=== PATIENT | female | born 1955 | race Caucasian/White ===

== ENCOUNTER → 2017-07-29 09:27 | Outpatient (CLI) | payer OTHER, SELFPAY | PROVIDERS: PCP Nurse Practitioner Acute Care; Visit Provider Internal Medicine | DX: Z48.817 Encounter for surgical aftercare following surgery on the skin and subcutaneous tissue (principal) | CPT/HCPCS: 99213 ==

== ENCOUNTER → 2018-03-22 13:11 | Outpatient (CLI) | payer OTHER, SELFPAY ==
[2018-03-22 13:38] LABS: Add Manual Diff / Slide Review NO; Basophils Absolute Auto 100 /uL (0-100); Basophils Percent Auto 1.2 % (0-2); Eosinophils Absolute Auto 600 /uL (0-450); Eosinophils Percent Auto 5.9 % (2-4); Hemoglobin 16.7 g/dL (12.0-16.0); Lymphocytes Absolute Auto 2500 /uL (1100-4500); Lymphocytes Percent Auto 24.1 % (25-40); Mean Corpuscular HGB Conc 33.5 % (30-36); Mean Corpuscular Hemoglobin 31.6 PG (26-34); Mean Corpuscular Volume 94.4 fL (80-100); Monocytes Absolute Auto 800 /uL (0-900); Monocytes Percent Auto 7.9 % (3-14); Neutrophils Absolute Auto 6300 /uL (1500-7000); Neutrophils Percent Auto 60.9 % (50-75); Platelet Count 300 X10^3/uL (150-400); Red Blood Cell Count 5.29 X10^6/uL (4.0-5.2); Red Cell Distribution Width 13.3 % (11.6-14.8); White Blood Cell Count 10.4 X10^3/uL (4.5-11.0)
[2018-03-22 13:53] LABS: Alanine Aminotransferase 32 IU/L (9-52); Albumin 4.7 g/dL (3.5-5.0); Albumin Globulin Ratio 1.6 (1.0-2.8); Alkaline Phosphatase 92 U/L (38-126); Aspartate Aminotransferase 27 IU/L (14-36); BUN Creatinine Ratio 24.3 (6-22); Bilirubin Total 0.4 mg/dL (0.2-1.3); Blood Urea Nitrogen 17 mg/dL (7-17); Calcium 9.8 mg/dL (8.4-10.2); Carbon Dioxide 29 mmol/L (22-32); Chloride 103 mmol/L (98-107); Estimated Glomerular Filt Rate > 60.0 mL/min (>60); Glucose 94 mg/dL (80-110); HEMOLYSIS < 15 (0-50); Potassium 4.1 mmol/L (3.4-5.1); Sodium 142 mmol/L (137-145); Total Protein 7.7 g/dL (6.3-8.2)
[2018-03-22 13:58] LABS: Hemoglobin A1C% w Est Avg Glu 5.9 % (4.0-6.0)
== END ==
PROVIDERS: PCP Nurse Practitioner Acute Care; Visit Provider Nurse Practitioner Acute Care
DX: D64.9 Anemia, unspecified (principal); R53.83 Other fatigue; R53.81 Other malaise; R53.1 Weakness
CPT/HCPCS: 36415; 80053; 83036; 85025

== ENCOUNTER → 2018-03-22 16:01 | Outpatient (CLI) | payer OTHER, SELFPAY ==
--- NOTE | 2018-03-22 | DI.CT.S_ITS ---
PROCEDURE: CT CHEST W CON INDICATIONS: NEW LEFT SUPRACLAVICULAR SWELLING. TECHNIQUE: After the administration of intravenous contrast, 5 mm thick sections acquired from the pulmonary apices to the posterior costophrenic angles. 7 mm thick coronal and sagittal MIP reformats were acquired. For radiation dose reduction, the following was used: automated exposure control, adjustment of mA and/or kV according to patient size. COMPARISON: None. FINDINGS: Image quality: Excellent. Lungs and pleura: Lung volumes are large, and the lung parenchyma appearance is suggestive of central lobular emphysema. Note is made of 2 left apical lung masses, one anteriorly which is mildly spiculated measures up to 6 mm and the second is larger, postero-laterally at the apex and measures up to 1.8 cm with spiculation.. No pleural effusions or pneumothorax. Central and peripheral airways are patent and normal in caliber. Mediastinum: Heart size is normal. No pericardial effusion. No mediastinal or hilar adenopathy by size criteria. Thoracic aorta and central pulmonary arteries are normal in size. Esophagus is normal in caliber. No hiatal hernia. Bones and chest wall: No suspicious bony lesions. No vertebral body compression fractures. No axillary or supraclavicular adenopathy by size criteria. Thyroid gland appears normal where well visualized. Abdomen: Visualized upper abdominal solid organs appear normal. Upper abdominal bowel loops are normal in caliber. IMPRESSION: Suspect COPD and long-standing smoking history. What appears to be central lobular emphysema is present. 2 lung masses are found at the apex of the left upper lobe, measuring up to 6 mm anteriorly and 1.8 cm posteriorly with mild spiculation. No associated mediastinal or hilar adenopathy is found, no distant metastatic disease is seen. Followup by a nuclear medicine PET CT scan is recommended for pulmonary nodule workup to both determine evidence of malignancy involving at least the larger of the 2 nodules and also evidence of metastatic disease. The ordering health care provider was immediately called personally with this information at time of this dictation. Dictated by: Alexandre Garces M.D. on 03/22/2018 at 17:20 Approved by: Alexandre Garces M.D. on 03/22/2018 at 17:28
== END ==
PROVIDERS: PCP Nurse Practitioner Acute Care; Visit Provider Nurse Practitioner Acute Care
DX: S40.012A Contusion of left shoulder, initial encounter (principal); M25.412 Effusion, left shoulder; R91.8 Other nonspecific abnormal finding of lung field
CPT/HCPCS: 36415; 71260; 80053; 83036; 85025; Q9967

== ENCOUNTER → 2018-04-06 13:30 | Oncology outpatient (ONC) | payer OTHER, SELFPAY ==
[2018-03-24 08:44] VITALS: BP 157/77; PULSE 92; RESP 18; TEMP 37.2; O2SAT 96
--- NOTE | 2018-03-24 09:18 | P.CONONC_ITS ---
History of Present Illness - Data of Consult Consult date: 03/24/18 Primary Care Provider: DANYELLE Butterfield - Consult Narrative Narrative: Martine Conde is a 62 year old female for further evaluation of newly discovered pulmonary nodules. Patient reports that she had developed pneumonia around Gisela time. She had increased shortness of breath cough. She was treated with some antibiotics and steroids. Her cough has improved although not completely resolved. While on the prednisone, she developed some swelling in the left supraclavicular area as well as some bruising. She had a CT scan done to evaluate that. No abnormalities were seen in the supraclavicular area but she did have 2 lesions seen in the left upper lobe. They were spiculated. The smaller 1 was about 6 mm. The larger was 1.6 cm. There was no adenopathy. A PET-CT was recommended but has not been done yet. The patient denies any pain in the chest. She still has some cough. She notes some dyspnea on exertion but is able to go about all of her normal activities. She does smoke about half a pack of cigarettes daily. Her appetite has been stable. She has not been losing any weight. She has not noted any adenopathy. No nausea or vomiting. She otherwise feels well. Her past medical history is notable for scoliosis. She has some pain in the back and hip related to this. It has been chronic. She has a history of hypertension. She has had prior . She has had surgery for hammertoe and for bursa on her elbow. Her medications include losartan and hydrochlorothiazide. She also uses some inhalers. She denies any drug allergies. Family history is negative for malignancy. 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 She does smoke about a half a pack of cigarettes daily. She has tried quitting in the past but did not tolerate Chantix. She is interested in trying some nicotine patches. CC: Alejandro Talbert MD Home Medications and Allergies Home Medications Medication Instructions Recorded Confirmed Type albuterol sulfate [ProAir HFA] 2 puff INHALATION Q4-6H 03/24/18 03/24/18 History glycopyrrolate-formoterol [Bevespi 2 puff INHALATION BID 03/24/18 03/24/18 History Aerosphere] hydrochlorothiazide 25 mg PO DAILY 03/24/18 03/24/18 History losartan 50 mg PO DAILY 03/24/18 03/24/18 History tiotropium bromide [Spiriva with 1 cap INHALATION DAILY 03/24/18 03/24/18 History HandiHaler] Medical History - Social History Smoking Status: Current every day smoker Time spent discussing smoking cessation with patient: 3 to 10 minutes Review of Systems - Patient Self-Reported Symptoms SR Constitution: Fatigue/Malaise SR ears, nose, mouth, throat issues: Cough SR respiratory issues: Cough, Shortness of breath, Difficulty breathing, Mucous SR Musculoskeletal issues: Back or neck pain Constitutional: fair state of general health, able to conduct usual activities, no weight loss Cardiovascular: dyspnea on exertion, no chest pain Respiratory: cough, sputum production, no hemoptysis Gastrointestinal: no change in appetite, no nausea, no vomiting Exam - Constitutional positive no acute distress, positive average body habitus Comments: She is somewhat anxious appearing and tearful. - Routine HEENT Exam Head: Present: normocephalic, atraumatic Eye: Present: EOMI, PERRL. Absent: conjunctival icterus, scleral injection ENT: Present: mucous membranes moist, oropharynx clear, dentition normal - Routine Neck Exam Present: supple. Absent: lymphadenopathy, thyromegaly - Routine Respiratory Exam Present: Clear to auscultation bilaterally. Absent: rales Comments: She does have occasional wheeze on forced expiration. - Routine Cardiovascular Exam Present: RRR, S1, S2. Absent: murmur - Routine Abdominal Exam Present: soft, normoactive bowel sounds. Absent: tenderness, organomegaly, mass - Routine Extremities Exam Absent: cyanosis, clubbing, edema - Routine Back/Spine Exam Back/Spine: Absent: paraspinal tenderness, vertebral tenderness - Routine Skin Exam Present: intact. Absent: petechiae, rash - Routine Neurological Exam Present: alert, oriented X3 - Routine Psychiatric Exam Present: normal affect, normal thought process Results - Imaging CT scan - chest: image reviewed (Two spiculated nodules in the left upper lobe.) Assessment and Plan (1) Pulmonary nodule Current visit: Yes Status: Acute 62-year-old woman of who is a smoker. She has had a recent pneumonia and now newly discovered pulmonary nodules in the left upper lobe. These are suspicious for malignancy. She will need PET-CT. It is likely that she will require biopsy after that. If these are in fact confirmed to be cancer, based on the imaging currently available, it appears that she may have disease that is amenable to surgical resection. She will return to clinic here after her PET -CT and will arrange for next steps then. I did counselor/art therapist her to quit smoking if at all possible. We talked about the use of nicotine replacement products including patches or gum. We also talked about E cigarettes as being potentially safer than regular cigarettes but probably not as safe as nothing. She is interested potentially trying the patches. She does have a long smoking history. She if she does require surgery, it may be helpful to get PFTs prior.
[2018-04-06 13:52] VITALS: BP 154/87; PULSE 81; RESP 16; TEMP 37.2; O2SAT 96
--- NOTE | 2018-04-06 13:58 | ONC.PN ---
PN -Subjective Interval history: Diagnosis: Likely left upper lobe lung cancer Interval history: The patient is a 62-year-old woman who returns today for follow-up. She was seen initially with incidental finding of small left upper lobe pulmonary nodules. These were suspicious for malignancy. Since her last visit here, she did have an episode of bronchitis and has been treated with some steroids and antibiotics and has since improved. No fevers or chills. She denies any shortness of breath or pain in the chest. She has had slight cough although it seems to be getting better. She has not noted any adenopathy. Her appetite has been good. She denies any other changes in her health. - Patient Self-Reported Symptoms SR Constitution: Fatigue/Malaise SR ears, nose, mouth, throat issues: Cough SR respiratory issues: Shortness of breath SR Musculoskeletal issues: Back or neck pain Home Medications and Allergies Home Medications Medication Instructions Recorded Confirmed Type albuterol sulfate [ProAir HFA] 2 puff INHALATION Q4-6H 03/24/18 03/24/18 History glycopyrrolate-formoterol [Bevespi 2 puff INHALATION BID 03/24/18 03/24/18 History Aerosphere] hydrochlorothiazide 25 mg PO DAILY 03/24/18 03/24/18 History losartan 50 mg PO DAILY 03/24/18 03/24/18 History tiotropium bromide [Spiriva with 1 cap INHALATION DAILY 03/24/18 03/24/18 History HandiHaler] doxycycline hyclate 100 mg PO BID 04/06/18 04/06/18 History Exam - Constitutional positive no acute distress, positive average body habitus Comments: She is not further examined. Results - Imaging Additional studies: PET-CT was reviewed with the patient. It showed uptake in her larger left upper lobe pulmonary nodule. There was no evidence of adenopathy in the chest. She did have some uptake in the paraspinal area on the right near the level of the right kidney. There is no obvious mass present. Assessment and Plan (1) Pulmonary nodule Current visit: Yes Status: Acute 62-year-old woman of who is a smoker. She has had a recent pneumonia and now newly discovered pulmonary nodules in the left upper lobe which is suspicious for malignancy. She also has some uptake in the right paraspinal area. We will arrange for an MRI of that area to further evaluate. If that turned out to be muscle spasm or artifact, then I think it makes sense to approach her like a stage I lung cancer. She will need a CT-guided biopsy. We discussed treatment for early stage lung cancer. Surgical resection is our standard therapy. Studies looking at stereotactic radiation have demonstrated similar outcomes but with obviously less invasive procedures and shorter recovery. She would like to consider both of these options. Will make referral to thoracic surgeon and to Radiation Oncology. She will return to clinic here after those appointments.
--- NOTE | 2018-04-13 16:27 | ONC.SCHED ---
RE: THORACIC SURGERY CONSULT: Per Efrain: Patient's consult with Dr. Calle @ [facility] was pushed out till near the end of the month. Efrain suggested I talk with [facility] to see if Dr. Serna was willing to do biopsy. I spoke with Dr. Serna who, after reviewing scans and notes, determined patient would be better served by a Thoracic Surgeon. I was able to get a consult scheduled for 04/[address] Robison at [facility].
--- NOTE | 2018-04-20 13:45 | ONC.SCHED ---
per a phone call from Patricia in radiation at [facility], this patient cancelled her appointments there and instead is seeing Dr Robison in [place] for surgery.
== END ==
PROVIDERS: PCP Nurse Practitioner Acute Care
DX: R91.8 Other nonspecific abnormal finding of lung field (principal); F17.200 Nicotine dependence, unspecified, uncomplicated
CPT/HCPCS: 99204; 99214

== ENCOUNTER → 2018-04-08 06:41 | Outpatient (CLI) | payer OTHER, SELFPAY ==
--- NOTE | 2018-04-08 06:44 | DI.MRI.S_ITS ---
PROCEDURE: MR ABDOMEN WO/W CON INDICATIONS: Abnormal uptake in the right flank region on prior PET/CT. TECHNIQUE: Coronal HASTE, axial 2D FLASH in- and [id number]; axial breath-hold T2 FSE. Dynamic axial VIBE during the administration of contrast; post-contrast coronal VIBE or 2D FLASH with fat saturation from the hepatic dome to the iliac crests. Optional diffusion weighted imaging and ADC may be performed. COMPARISON: [facility], CT, CT CHEST W CON, 03/22/2018, 16:05. [facility], NM, NM PET CT FUSION SKULL 2 THIGH, 03/31/2018, 13:45. FINDINGS: Image quality: There is mild motion artifact limiting evaluation. Lung bases: No basal pleural effusions. Heart size is normal. There is a small hiatal hernia. Solid organs: Laterally within the right hepatic lobe, there is a small T2 hyperintense lesion measuring up to 0.7 cm which demonstrates peripheral puddling on initial arch or phase images with progressive centripetal enhancement. The findings are consistent with a small hemangioma. No additional mass lesions demonstrated within the liver. The gallbladder appears within normal limits without gallstones. Biliary system is non dilated. Pancreas is normal in morphology. Spleen is normal in size and enhancement. No adrenal nodules. Both kidneys demonstrate normal size and enhancement, without hydronephrosis. Nodes and vessels: No retroperitoneal or mesenteric adenopathy by size criteria. There is a small amount of indistinct left para-aortic soft tissue adjacent to the left adrenal gland which appears unchanged from the recent prior studies. No corresponding uptake demonstrated on the recent PET/CT. Aorta and inferior vena cava are normal in size. Bowel and peritoneum: Visualized bowel loops are normal in caliber. No free fluid. Bones and soft tissues: No discrete mass lesion or fluid collection is demonstrated in the right paraspinous musculature in the area of asymmetric uptake on the recent MRI. The right paraspinous musculature demonstrates mild asymmetric enlargement relative to the left without definite abnormal enhancement. No ventral hernias. There is a moderate dextroscoliosis of the thoracolumbar spine centered at the level of L2-L3. Bone marrow is normal in overall signal. IMPRESSION: 1. No discrete mass, fluid collection, or abnormal enhancement demonstrated in the right paraspinous musculature in the area of increased uptake on the recent head CT. There is mild asymmetric enlargement of the right paraspinous musculature relative to the left. The findings may be reactive secondary to patient's dextroscoliosis of the thoracolumbar spine. The differential includes an infiltrative neoplastic or inflammatory process although this is less likely in the absence of enhancement or abnormal signal. Recommend clinical followup and a short term followup repeat MRI in 3 months if clinical concern persists. 2. Small hemangioma in the right hepatic lobe. 3. No definite evidence of metastatic disease in the abdomen. Dictated by: Robe Martin M.D. on 04/08/2018 at 9:47 Approved by: Robe Martin M.D. on 04/08/2018 at 9:58
== END ==
PROVIDERS: PCP Nurse Practitioner Acute Care
DX: R93.5 Abnormal findings on diagnostic imaging of other abdominal regions, including retroperitoneum (principal); R91.1 Solitary pulmonary nodule; D18.03 Hemangioma of intra-abdominal structures; K44.9 Diaphragmatic hernia without obstruction or gangrene
CPT/HCPCS: 74183

== ENCOUNTER 2018-04-23 12:42 | Emergency (ER) | payer OTHER, SELFPAY ==
[2018-04-23 12:56] VITALS: BP 112/60; PULSE 82; RESP 17; TEMP 36.5; O2SAT 93
--- NOTE | 2018-04-23 12:57 | ED.NECK ---
HPI - Neck Pain/Injury <Nayeli Daniels PA-C - Last Filed: 04/23/18 21:42> General Chief Complaint: Back Pain/Injury Stated Complaint: NECK/SHOULDER PAIN Time Seen by Provider: 04/23/18 12:49 Source: patient and family Mode of arrival: ambulatory Limitations: no limitations History of Present Illness HPI Narrative: This 62-year-old female who has a long history of neck and shoulder pain related to scoliosis states she was sent here by her PCP office due to persistent worsening pain today. She was seen there yesterday and prescribed Lavinia and Soma, but states that she has not had any relief from that. She states she has been off and on prednisone for many years for the pain, was taking 10 mg b.i.d., however, has been off of this for 6 days now due to recent procedures and anticipated lung surgery next week. She was told that she cannot take NSAIDs either. She states that she used to get very good relief from the steroids. She denies any new changes today such as paresthesias or weakness in the extremities. She states that she has had no sedation with the Soma and Lavinia, just no relief. She states that the pain has gradually increased this week, no new trauma. She describes pain as pain in the neck and shoulder muscles and tightness, worse with movement. She does not feel like the pain is in her spine. Related Data Home Medications Medication Instructions Recorded Confirmed hydrochlorothiazide 25 mg PO DAILY 03/24/18 04/23/18 losartan 50 mg PO DAILY 03/24/18 04/23/18 albuterol sulfate [ProAir HFA] 1 - 2 puff INHALATION Q4H PRN 04/23/18 04/23/18 cyclobenzaprine 10 mg PO BEDTIME PRN 04/23/18 04/23/18 diltiazem HCl [DILT-XR] 120 mg PO DAILY 04/23/18 04/23/18 multivitamin 1 tab PO DAILY 04/23/18 04/23/18 Previous Rx's Medication Instructions Recorded cyclobenzaprine 10 mg PO Q8H #30 tab 04/23/18 lidocaine 2 patch TOP DAILY #30 each 04/23/18 Allergies Allergy/AdvReac Type Severity Reaction Status Date / Time No Known Drug Allergies Allergy Verified 04/23/18 13:16 Review of Systems <Nayeli Daniels PA-C - Last Filed: 04/23/18 21:42> Review of Systems ROS Unobtainable: All systems reviewed & are unremarkable except as noted in HPI and below PFSH <Nayeli Daniels PA-C - Last Filed: 04/23/18 21:42> Medical History Pulmonary nodule (Chronic) COPD (chronic obstructive pulmonary disease) (Chronic) Chronic pain (Chronic) HTN (hypertension) (Chronic) Scoliosis (Chronic) Surgical History History of (Resolved) History of elbow surgery (Resolved) Hx of foot surgery (Resolved) Family History Other No pertinent family history Social History Smoking Status: Current every day smoker Family History Other No pertinent family history Social History Smoking Status: Current every day smoker Exam <Nayeli Daniels PA-C - Last Filed: 04/23/18 21:42> Narrative Exam Narrative: GENERAL APPEARANCE: Patient sitting comfortably, in no distress. LUNGS: Clear to auscultation bilaterally aside from faint left upper lobe expiratory wheeze. HEART: Rate and rhythm regular without murmur, normal S1 and S2, no S3 or S4. DERMATOLOGIC: No exanthem MUSCULOSKELETAL: No tenderness over the cervical or thoracic spine. She is tight and tender in the right upper trapezius muscles midline to medial and also the lateral cervical strap musculature. She has full range of motion of the neck with end point tenderness. Upper extremity strength 5/5 throughout Initial Vital Signs Initial Vital Signs: Vital Signs Temperature 97.7 F 04/23/18 12:56 Pulse Rate 82 04/23/18 12:56 Respiratory Rate 17 04/23/18 12:56 Blood Pressure 112/60 04/23/18 12:56 Pulse Oximetry 93 04/23/18 12:56 <Jessi Austin DO - Last Filed: 04/24/18 07:23> Initial Vital Signs Initial Vital Signs: Vital Signs Temperature 97.7 F 04/23/18 12:56 Pulse Rate 82 04/23/18 12:56 Respiratory Rate 17 04/23/18 12:56 Blood Pressure 112/60 04/23/18 12:56 Pulse Oximetry 93 04/23/18 12:56 Course <Nayeli Daniels PA-C - Last Filed: 04/23/18 21:42> Additional Information: Explained to patient I do not see any sign of urgent neurologic problem or change, more likely increase in pain is due to being off of chronic anti-inflammatory effect of her steroids. She is not allowed to take steroids or NSAIDs now in anticipation of surgery. She felt significantly improved after application of lidocaine patches and cyclobenzaprine with a dose of Lavinia, which she also has at home. She did not have any sedation. Explained I suspect that is mainly due to the muscle relaxant being more effective for her as she does have considerable tightness on palpation. Prescriptions were sent for her for Flexeril and Lidoderm patches. She will continue her pain pills as needed in addition and check in with her PCP. Orders Ordered: Discontinued Medications Hydrocodone Bitart/Acetaminophen (Lavinia 5/325) 1 tab PO NOW ONE Stop: 04/23/18 13:15 Last Admin: 04/23/18 13:39 Dose: 1 tab Cyclobenzaprine HCl (Flexeril) 10 mg PO NOW ONE Stop: 04/23/18 13:15 Last Admin: 04/23/18 13:39 Dose: 10 mg Lidocaine (Lidoderm) 2 each TOP NOW ONE Stop: 04/23/18 13:15 Last Admin: 04/23/18 13:39 Dose: 2 each Vital Signs - 8 hr 04/23/18 14:37 Temperature 98.7 F Pulse Rate 72 Respiratory Rate 18 Blood Pressure [Right Arm] 109/67 Pulse Oximetry 94 <Jessi Austin DO - Last Filed: 04/24/18 07:23> Orders Ordered: Discontinued Medications Hydrocodone Bitart/Acetaminophen (Lavinia 5/325) 1 tab PO NOW ONE Stop: 04/23/18 13:15 Last Admin: 04/23/18 13:39 Dose: 1 tab Cyclobenzaprine HCl (Flexeril) 10 mg PO NOW ONE Stop: 04/23/18 13:15 Last Admin: 04/23/18 13:39 Dose: 10 mg Lidocaine (Lidoderm) 2 each TOP NOW ONE Stop: 04/23/18 13:15 Last Admin: 04/23/18 13:39 Dose: 2 each Vital Signs - 8 hr 04/23/18 14:37 Temperature 98.7 F Pulse Rate 72 Respiratory Rate 18 Blood Pressure [Right Arm] 109/67 Pulse Oximetry 94 Discharge Plan Departure Patient Disposition: Home Clinical Impression: Cervical muscle strain Qualifiers: Encounter type: initial encounter Qualified Code(s): S16.1XXA - Strain of muscle, fascia and tendon at neck level, initial encounter Scoliosis Qualifiers: Scoliosis type: unspecified scoliosis Spinal region: unspecified Qualified Code(s): M41.9 - Scoliosis, unspecified Discharge Date/Time: 04/23/18 14:53 Interventions: ED Discharge Assessment Last Done: 04/23/18 14:53 Instructions: DI for Muscle Strain, DI for Chronic Neck Pain Activity Restrictions/Additional Instructions: I think that your pain is due to chronic muscle strain, tightness, and spasm in your neck muscles on the back and side as well as the big muscle the top of your shoulder (the trapezius). I suspect that your steroids were helping greatly with the chronic inflammation that you have, and as you have been off of them for longer, this is probably contributing to your increased pain. Please discontinue the Soma (Carisoprodol) since it does not tend to have much direct effect on the muscles and did not help you. Instead, please change to the cyclobenzaprine that I prescribed, 10 mg every 8 hr. You can increase that to a maximum of 20 mg if needed but remember it can make you sleepy and you should not be doing activities that you need to be alert for such as driving or drowsiness. You can continue either your oxycodone/acetaminophen or your hydrocodone/acetaminophen up to every 4-6 hours as needed since you have both at home. Do not take both together (it seems like the hydrocodone worked well for you today). You can also use the pain patches for up to 12 hr daily. Please check in with your PCP this afternoon to see whether they want to see you for follow-up on Thursday for recheck, and you should also contact them if you need prescriptions refilled. Prescriptions: New cyclobenzaprine 10 mg tablet 10 mg PO Q8H Qty: 30 RF: 0 lidocaine 5 % adhesive patch,medicated 2 patch TOP DAILY Qty: 30 RF: 0 Discontinued carisoprodol 350 mg tablet 350 mg PO Q6H PRN (Reason: Muscle Spasm) RF: 0 acetaminophen-codeine 300-30 mg tablet 1 - 2 tab PO BEDTIME PRN (Reason: Pain, Severe) RF: 0 No Action losartan 50 mg Tablet 50 mg PO DAILY RF: 0 hydrochlorothiazide 25 mg Tablet 25 mg PO DAILY RF: 0 cyclobenzaprine 10 mg tablet 10 mg PO BEDTIME PRN (Reason: Muscle Spasm) RF: 0 diltiazem HCl [DILT-XR] 120 mg capsule,ext.rel 24h degradable 120 mg PO DAILY RF: 0 ProAir HFA 90 mcg/actuation HFA aerosol inhaler 1 - 2 puff Inhalation Q4H PRN (Reason: Wheezing) RF: 0 multivitamin Tablet 1 tab PO DAILY RF: 0 Referrals: Rebecca Griffith, [employer] [Primary Care Provider] - <Jessi Austin DO - Last Filed: 04/24/18 07:23> Cosign ED Attending Cosignature Attestation: I was immediately available in the department for consultation. This documentation has been reviewed and I agree with assessment and plan. Supervised by Jessi Austin DO
[2018-04-23 13:16] VITALS: PULSE 82; RESP 17; TEMP 36.5; O2SAT 93; BMI 20.9
[2018-04-23] MEDS: CYCLOBENZAPRINE 10 MG TABLET PO (13:39)
[2018-04-23] MEDS: HYDROCODONE/ACET 5/325 TABLET 1 TAB PO (13:39)
[2018-04-23] MEDS: LIDOCAINE PATCH 1 EACH ADH..PATCH 2 EACH TOP (13:39)
[2018-04-23 14:37] VITALS: BP 109/67; PULSE 72; RESP 18; TEMP 37.1; O2SAT 94
== END 2018-04-23 14:53 | disposition home or self-care (01) ==
PROVIDERS: Emergency Provider Internal Medicine; PCP Nurse Practitioner Acute Care
DX: S16.1XXA Strain of muscle, fascia and tendon at neck level, initial encounter (principal); M41.9 Scoliosis, unspecified
CPT/HCPCS: 99282; 99283

== ENCOUNTER → 2018-05-24 17:02 | Outpatient (CLI) | payer OTHER, SELFPAY ==
--- NOTE | 2018-05-24 17:05 | DI.RAD.S_ITS ---
PROCEDURE: XR CHEST 2V INDICATIONS: DYSPNEA TECHNIQUE: 2 views of the chest were acquired. COMPARISON: [facility], CT, CT CHEST W CON, 03/22/2018, 16:05. FINDINGS: Surgical changes and devices: Postoperative changes are present at the left apex. No pneumothorax is visualized. No pleural effusion. Right lung is clear. Lungs and pleura: Lungs are clear. No pleural effusions or pneumothorax. Mediastinum: Mediastinal contours are normal. Heart size is normal. Bones and chest wall: No suspicious bony abnormalities. Soft tissues appear unremarkable. IMPRESSION: Left upper lung postoperative changes. No pneumothorax. Dictated by: Roseline Vail M.D. on 05/24/2018 at 17:31 Approved by: Roseline Vail M.D. on 05/24/2018 at 17:34
== END ==
PROVIDERS: PCP Nurse Practitioner Acute Care; Visit Provider Nurse Practitioner Acute Care
DX: R06.00 Dyspnea, unspecified (principal)
CPT/HCPCS: 71046

== ENCOUNTER 2018-05-27 02:05 | Emergency (ER) | payer OTHER, SELFPAY ==
--- NOTE | 2018-05-27 02:15 | ED_ITS ---
HPI - SOB/Dyspnea General Chief Complaint: Upper Respiratory Symptoms Stated Complaint: SOB Time Seen by Provider: 05/27/18 02:14 Source: patient Mode of arrival: ambulatory Limitations: no limitations History of Present Illness patient is a 62-year-old female with a history of lung cancer. Had a left upper lobe resection done in April of this year. Is not currently undergoing any chemotherapy or radiation. She states that the resection took care of it she also has a history of atrial fibrillation after her lung resection. She states she does not feel like she is in AFib. Patient states she does not have a history of COPD however she stated that her primary doctor has talked about it she does have an albuterol nebulizer at home. She states that since her surgery she has had episodes where she has shortness of breath. Especially dyspnea on exertion. earlier this week she was seen by her primary doctor. Was given a inhaled steroid also Levaquin for shortness of breath. She states this evening she became acutely short of breath. She became very anxious about this. No other associated symptoms. Did the nebulizer treatment. Came into the emergency department for evaluation. Related Data Home Medications Medication Instructions Recorded Confirmed hydrochlorothiazide 25 mg PO DAILY 03/24/18 04/23/18 losartan 50 mg PO DAILY 03/24/18 04/23/18 albuterol sulfate [ProAir HFA] 1 - 2 puff INHALATION Q4H PRN 04/23/18 04/23/18 cyclobenzaprine 10 mg PO BEDTIME PRN 04/23/18 04/23/18 diltiazem HCl [DILT-XR] 120 mg PO DAILY 04/23/18 04/23/18 multivitamin 1 tab PO DAILY 04/23/18 04/23/18 Previous Rx's Medication Instructions Recorded cyclobenzaprine 10 mg PO Q8H #30 tab 04/23/18 lidocaine 2 patch TOP DAILY #30 each 04/23/18 prednisone 40 mg PO DAILY 5 Days #10 tab 05/27/18 Allergies Allergy/AdvReac Type Severity Reaction Status Date / Time No Known Drug Allergies Allergy Verified 04/23/18 13:16 Review of Systems Constitutional Denies fever(s) and Denies headache(s) ENT Ears, Nose, Mouth, and Throat: Denies headache(s) Cardiovascular Denies chest pain, Denies edema, Denies palpitations, Reports dyspnea and Reports dyspnea on exertion Respiratory Reports dyspnea, Reports dyspnea on exertion and Denies wheezing Gastrointestinal Gastrointestinal: Denies abdominal pain, Denies nausea and Denies vomiting Genitourinary Denies dysuria Musculoskeletal Denies myalgias and Denies arthralgias Integumentary/Breasts Denies rash Neurologic Denies headache(s) Endocrine Denies palpitations Hematologic/Lymphatic Denies easy bleeding and Denies easy bruising Allergic/Immunologic Denies wheezing PFSH Medical History Pulmonary nodule (Chronic) COPD (chronic obstructive pulmonary disease) (Chronic) Chronic pain (Chronic) HTN (hypertension) (Chronic) Scoliosis (Chronic) Surgical History History of (Resolved) History of elbow surgery (Resolved) Hx of foot surgery (Resolved) Family History Other No pertinent family history Social History Smoking Status: Former smoker Family History Other No pertinent family history Social History Smoking Status: Former smoker Exam Initial Vital Signs Initial Vital Signs: Vital Signs Temperature 97.9 F 05/27/18 02:17 Pulse Rate 76 05/27/18 02:17 Respiratory Rate 22 05/27/18 02:17 Blood Pressure 157/84 H 05/27/18 02:17 Pulse Oximetry 96 05/27/18 02:17 Const General: cooperative, healthy appearing, comfortable, well developed, well groomed and No acute distress Orientation: alert, awake and oriented x3 HENMT Head: normal to inspection and normocephalic Resp Effort & Inspection: normal respiratory effort Auscultation: clear to auscultation bilaterally Cardio Rate: regular rate Rhythm: regular rhythm Pulses: radial pulses present GI Inspection: non-distended Palpation: soft and No firm Skin Lesions: no lesions Rashes: no rashes Neuro General: alert, awake and oriented x3 Cognition: normal cognition Speech: speech normal Extrem General: normal to inspection and capillary refill normal Psych Appearance: grossly normal and well kempt Course Orders Ordered: ED Orders 05/27/18 02:15 XR chest 1V Stat 05/27/18 02:24 EKG-12 Lead Stat Discontinued Medications Albuterol/Ipratropium (Duoneb) 3 ml INH NOW ONE Stop: 05/27/18 02:25 Last Admin: 05/27/18 02:37 Dose: 3 ml Vital Signs - 8 hr 05/27/18 02:17 05/27/18 02:37 Temperature 97.9 F Pulse Rate 76 73 Respiratory Rate 22 18 Blood Pressure 157/84 H Pulse Oximetry 96 96 MDM - SOB/Dyspnea Imaging Data Chest x-ray: Attestation: I personally reviewed and interpreted this imaging study as follows: My impression: Left superior lobe resection, no focal consolidation normal size heart ECG Data Attestation: I personally reviewed and interpreted this ECG as follows: Prior ECG tracings: not available for review Interpretation: sinus rhythm ventricular rate is 71 normal axis Normal intervals Normal QRS Nonspecific ST T wave changes MDM Narrative Medical decision making narrative: patient not complaining of chest pain. Patient not in atrial fibrillation. Not in respiratory distress. Is currently on antibiotics prescribed by her primary doctor. The shortness of breath she has tonight is not new. Will send home with a short course of steroids. I informed her that she needed to contact her primary doctor. She was given return precautions. She expressed understanding and agreement with plan. Discharge Plan Departure Patient Disposition: Home Clinical Impression: Shortness of breath Instructions: DI for Shortness of Breath Activity Restrictions/Additional Instructions: recommend you continue all of her medications as directed. Contact your primary care doctor for a follow-up. Take the steroids as directed. Return to the emergency department for any new or worsening symptoms Prescriptions: New prednisone 20 mg tablet 40 mg PO DAILY 5 Days Qty: 10 RF: 0 No Action losartan 50 mg Tablet 50 mg PO DAILY RF: 0 hydrochlorothiazide 25 mg Tablet 25 mg PO DAILY RF: 0 cyclobenzaprine 10 mg tablet 10 mg PO BEDTIME PRN (Reason: Muscle Spasm) RF: 0 diltiazem HCl [DILT-XR] 120 mg capsule,ext.rel 24h degradable 120 mg PO DAILY RF: 0 ProAir HFA 90 mcg/actuation HFA aerosol inhaler 1 - 2 puff Inhalation Q4H PRN (Reason: Wheezing) RF: 0 multivitamin Tablet 1 tab PO DAILY RF: 0 cyclobenzaprine 10 mg tablet 10 mg PO Q8H Qty: 30 RF: 0 lidocaine 5 % adhesive patch,medicated 2 patch TOP DAILY Qty: 30 RF: 0 Referrals: Rebecca Griffith, [facility] [employer] [Primary Care Provider] -
--- NOTE | 2018-05-27 02:15 | DI.RAD.S_ITS ---
PROCEDURE: XR CHEST 1V INDICATIONS: SHORTNESS OF BREATH TECHNIQUE: One view of the chest was acquired. COMPARISON: [facility], [place], NM PET CT FUSION SKULL 2 THIGH, 03/31/2018, 13:45. [facility], CT, CT CHEST W CON, 03/22/2018, 16:05. [facility], CR, XR CHEST 2V, 05/24/2018, 17:10. FINDINGS: Surgical changes and devices: None. Lungs and pleura: Hyperinflation consistent with COPD. There is a suture in the left upper lung zone related to left upper lobectomy. Lungs are clear. No pleural effusions or pneumothorax. Mediastinum: Soft tissue fullness in the left hilum, unchanged from the last exam. Heart size is normal. Bones and chest wall: No suspicious bony lesions. Overlying soft tissues appear unremarkable. IMPRESSION: 1. No acute cardiopulmonary disease. 2. Stable postsurgical changes in the left upper lobe. 3. Left soft tissue hilar fullness appears unchanged. 4. Emphysema. Dictated by: Brijesh Mayo M.D. on 05/27/2018 at 8:35 Approved by: Brijesh Mayo M.D. on 05/27/2018 at 8:38
[2018-05-27 02:17] VITALS: BP 157/84; PULSE 76; RESP 22; TEMP 36.6; O2SAT 96
[2018-05-27 02:37] VITALS: PULSE 73; RESP 18; O2SAT 96
[2018-05-27] MEDS: ALBUTEROL/IPRATROPIUM 3 ML AMPUL INH (02:37)
[2018-05-27 03:31] VITALS: BP 132/71; PULSE 68; RESP 18; O2SAT 95
== END 2018-05-27 03:40 | disposition home or self-care (01) ==
PROVIDERS: Emergency Provider Emergency Medicine; PCP Nurse Practitioner Acute Care
DX: R06.02 Shortness of breath (principal)
CPT/HCPCS: 71045; 93005; 94640; 99282; 99284

== ENCOUNTER → 2018-06-16 19:53 | Outpatient (REF) | payer OTHER, SELFPAY ==
[2018-06-16 20:15] LABS: Add Manual Diff / Slide Review NO; Basophils Absolute Auto 100 /uL (0-100); Basophils Percent Auto 0.8 % (0-2); Eosinophils Absolute Auto 500 /uL (0-450); Eosinophils Percent Auto 4.3 % (2-4); Hematocrit 45.5 % (36-46); Lymphocytes Absolute Auto 1600 /uL (1100-4500); Lymphocytes Percent Auto 14.2 % (25-40); Mean Corpuscular Hemoglobin 30.4 PG (26-34); Mean Corpuscular Volume 92.3 fL (80-100); Monocytes Absolute Auto 1000 /uL (0-900); Monocytes Percent Auto 9.3 % (3-14); Neutrophils Absolute Auto 8000 /uL (1500-7000); Neutrophils Percent Auto 71.4 % (50-75); Platelet Count 301 X10^3/uL (150-400); Red Blood Cell Count 4.92 X10^6/uL (4.0-5.2); Red Cell Distribution Width 13.4 % (11.6-14.8); White Blood Cell Count 11.2 X10^3/uL (4.5-11.0)
[2018-06-16 20:53] LABS: Erythrocyte Sedimentation Rate 34 MM/HR (0-20)
[2018-06-16 20:59] LABS: Alanine Aminotransferase 43 IU/L (9-52); Albumin 4.2 g/dL (3.5-5.0); Albumin Globulin Ratio 1.6 (1.0-2.8); Alkaline Phosphatase 110 U/L (38-126); Aspartate Aminotransferase 38 IU/L (14-36); BUN Creatinine Ratio 24.3 (6-22); Bilirubin Total 0.4 mg/dL (0.2-1.3); Blood Urea Nitrogen 17 mg/dL (7-17); Calcium 10.3 mg/dL (8.4-10.2); Carbon Dioxide 25 mmol/L (22-32); Chloride 101 mmol/L (98-107); Estimated Glomerular Filt Rate > 60.0 mL/min (>60); Globulin 2.6 g/dL (1.7-4.1); Glucose 96 mg/dL (80-110); HEMOLYSIS < 15 (0-50); Potassium 4.4 mmol/L (3.4-5.1); Sodium 137 mmol/L (137-145); Total Protein 6.8 g/dL (6.3-8.2)
== END ==
LOC: LAB 19:53
PROVIDERS: PCP Nurse Practitioner Acute Care; Visit Provider Nurse Practitioner Acute Care
DX: R53.83 Other fatigue (principal); G89.29 Other chronic pain; R42 Dizziness and giddiness
CPT/HCPCS: 80053; 85025; 85651

== ENCOUNTER → 2018-06-17 11:11 | Outpatient (CLI) | payer OTHER, SELFPAY ==
--- NOTE | 2018-06-17 | DI.RAD.S_ITS ---
PROCEDURE: XR CHEST 2V INDICATIONS: LOWER LUNG PAIN TECHNIQUE: 2 views of the chest were acquired. COMPARISON: [facility], CR, XR CHEST 1V, 05/27/2018, 2:28. FINDINGS: Surgical changes and devices: Postsurgical changes in life hilar region/upper lobe are again seen. Lungs and pleura: Lungs are clear. Chronic emphysematous changes are again noted. No pleural effusions or pneumothorax. Mediastinum: No prominence in left hilar region is again seen and unchanged. Heart size is normal. Bones and chest wall: No suspicious bony abnormalities. Soft tissues appear unremarkable. IMPRESSION: Emphysema. No acute pulmonary pathology. No significant changes from previous study. Dictated by: Alfredo Mckenna M.D. on 06/17/2018 at 11:58 Approved by: Alfredo Mckenna M.D. on 06/17/2018 at 12:04
== END ==
PROVIDERS: PCP Nurse Practitioner Acute Care; Visit Provider Nurse Practitioner Acute Care
DX: J43.9 Emphysema, unspecified (principal)
CPT/HCPCS: 71046

== ENCOUNTER → 2019-03-04 12:34 | Outpatient (CLI) | payer OTHER, SELFPAY ==
--- NOTE | 2019-03-04 12:40 | DI.CT.S_ITS ---
PROCEDURE: CT CHEST WO CON INDICATIONS: Other nonspecific abnormal finding of lung field TECHNIQUE: Noncontrast 5 mm thick sections acquired from the pulmonary apices to the posterior costophrenic angles. 1 mm lung window, 5 mm thick coronal and sagittal and 7 mm axial MIP reformats were then acquired. For radiation dose reduction, the following was used: automated exposure control, adjustment of mA and/or kV according to patient size. COMPARISON: [facility], CR, XR CHEST 2V, 06/17/2018, 11:18. [facility], CR, XR CHEST 1V, 05/27/2018, 2:28. [facility], CR, XR CHEST 2V, 05/24/2018, 17:10. [facility], [place], [place] PET CT FUSION SKULL 2 THIGH, 03/31/2018, 13:45. FINDINGS: Image quality: Excellent. Lungs and pleura: No acute air space opacities. There is expected postsurgical change after partial left pneumonectomy, accounting for the distortion of the left mediastinal border, where increased radiodensity has been seen with pulmonary staple line superimposed, on plain film imaging from 05/24/18 and 05/27/18. No pleural effusions or pneumothorax. Central and peripheral airways are patent and normal in caliber. Mediastinum: Heart size is normal. No pericardial effusion. No mediastinal adenopathy by size criteria. Thoracic aorta and central pulmonary arteries are normal in size. Esophagus is normal in caliber. No hiatal hernia. Bones and chest wall: No suspicious bony lesions. No vertebral body compression fractures. No axillary or supraclavicular adenopathy by size criteria. Thyroid gland appears normal where well seen. Abdomen: Visualized upper abdominal solid organs and bowel loops appear normal in the absence of contrast. IMPRESSION: Expected postsurgical changes, partial left upper lobectomy. The distortion seen on plain film imaging represents post surgical change and superimposed pulmonary staple lines. A mass lesion in the area of the left hilum is not found by CT scanning. Dictated by: Alexandre Garces M.D. on 03/04/2019 at 14:59 Approved by: Alexandre Garces M.D. on 03/04/2019 at 15:01
== END ==
PROVIDERS: PCP Nurse Practitioner Acute Care; Visit Provider Physician Assistant Surgical
DX: R91.8 Other nonspecific abnormal finding of lung field (principal); Z98.890 Other specified postprocedural states
CPT/HCPCS: 71250

== ENCOUNTER → 2019-05-02 10:53 | Outpatient (CLI) | payer OTHER, SELFPAY ==
--- NOTE | 2019-05-02 10:54 | DI.RAD.S_ITS ---
PROCEDURE: XR LUMBAR SPINE MIN 4V INDICATIONS: Scoliosis chronic progressive low back pain hip pain TECHNIQUE: 5 views of the lumbar spine were acquired. COMPARISON: None. FINDINGS: Bones: No fracture or focal osseous destruction. However, limited evaluation given severe spondylitic and scoliotic changes Severe dextroscoliosis centered at L3. Moderate to severe diffuse disc space narrowing. Multilevel degenerative endplate sclerosis and spurring. Diffuse facet arthropathy. Soft tissues: Overlying bowel gas pattern is normal. No suspicious soft tissue calcifications. Scattered vascular calcifications seen in the aorta. Oblique images: Severely limited by degenerative changes however no gross pars defects seen Bilateral SI joint sclerosis and spurring. Bilateral mild hip degeneration. IMPRESSION: Severe dextroscoliosis Multilevel, moderate-severe lumbar spondylosis and facet arthropathy. Dictated by: Bunny Hughes M.D. on 05/02/2019 at 13:00 Approved by: Bunny Hughes M.D. on 05/02/2019 at 13:03
== END ==
PROVIDERS: PCP Nurse Practitioner Acute Care; Referring Provider Physical Medicine & Rehabilitation; Visit Provider Physical Medicine & Rehabilitation
DX: M41.50 Other secondary scoliosis, site unspecified (principal); M54.5 Low back pain; M47.816 Spondylosis without myelopathy or radiculopathy, lumbar region; G89.29 Other chronic pain; M16.0 Bilateral primary osteoarthritis of hip; M25.559 Pain in unspecified hip
CPT/HCPCS: 72110

== ENCOUNTER → 2019-05-19 11:34 | Outpatient (CLI) | payer OTHER, SELFPAY ==
--- NOTE | 2019-05-19 11:36 | DI.MRI.S_ITS ---
PROCEDURE: MR LUMBAR SPINE WO CON INDICATIONS: Scoliosis with left lower extremity symptoms TECHNIQUE: Noncontrast sagittal T1 spin echo and T2 fast echo, sagittal STIR, axial T1 and T2 fast spin echo through the lumbar spine. In cases with scoliosis, additional coronal T2 fast spin echo may be performed. COMPARISON: [facility], CR, XR LUMBAR SPINE MIN 4V, 05/02/2019, 10:51. FINDINGS: Image quality: Excellent. Alignment and Curvature: There is severe rotatory with primary apex at L2-L3 and secondary apex at L4-L5. Bone Marrow: Degenerative endplate signal changes are present. No acute vertebral body compression fractures. Spinal Cord: Conus medullaris terminates at the L1-L2 level. Visualized cord demonstrates normal signal and size. Paraspinous Soft Tissues: No paravertebral masses. L1-L2: Moderate loss of disc height and disc desiccation. Diffuse posterior and left lateral disc bulge and disc protrusion. Small posterior annular fissure is present. Mild bilateral facet arthropathy and hypertrophy of ligamentum flavum. The central canal is mildly narrowed. Severe left and mild right foraminal stenosis. L2-L3: Mild loss of disc height and disc desiccation. Diffuse posterior and posterior lateral disc bulge and disc protrusion. Mild bilateral facet arthropathy and hypertrophy of ligamentum flavum. The central canal is mildly narrowed. Mild to moderate bilateral foraminal stenosis. L3-L4: Severe loss of disc height and disc desiccation. Diffuse posterior disc bulge and left posterior lateral disc osteophyte complex. Moderate to severe bilateral facet arthropathy and mild hypertrophy of the flavum. The central canal is [id number] narrowed. Severe left and mild right foraminal stenosis. L4-L5: Mild loss of disc height and disc desiccation. Diffuse posterior disc bulge and right posterior lateral disc osteophyte complex. Moderate right and mild left facet arthropathy. The central canal is mildly narrowed. Severe right and mild left foraminal stenosis. L5-S1: Preserved disc height. Mild disc desiccation. There is posterior disc bulge. Moderate right and mild left facet arthropathy. The central canal is mildly narrowed. Moderate right foraminal stenosis. No left foramina stenosis. IMPRESSION: 1. Multilevel degenerative disc disease and facet arthropathy as described. 2. Multilevel central canal stenosis, [id number] at L3-L4, and mild at other levels. 3. Multilevel foraminal stenosis as described. 4. Severe scoliosis. Dictated by: Brijesh Mayo M.D. on 05/19/2019 at 16:25 Approved by: Brijesh Mayo M.D. on 05/19/2019 at 18:06
== END ==
PROVIDERS: PCP Nurse Practitioner Acute Care; Referring Provider Physical Medicine & Rehabilitation; Visit Provider Physical Medicine & Rehabilitation
DX: M41.50 Other secondary scoliosis, site unspecified (principal); M47.816 Spondylosis without myelopathy or radiculopathy, lumbar region; M47.817 Spondylosis without myelopathy or radiculopathy, lumbosacral region; M51.36 Other intervertebral disc degeneration, lumbar region; M51.37 Other intervertebral disc degeneration, lumbosacral region; M48.061 Spinal stenosis, lumbar region without neurogenic claudication; M48.07 Spinal stenosis, lumbosacral region
CPT/HCPCS: 72148

== ENCOUNTER 2019-05-24 12:33 | Outpatient (CLI) | payer OTHER, SELFPAY ==
[2019-05-24] VITALS (9 sets, daily range): BP systolic 95–124; BP diastolic 63–82; PULSE 69–78; RESP 15–16; TEMP 36; O2SAT 95–98
--- NOTE | 2019-05-24 12:34 | DI.RAD.S_ITS ---
PROCEDURE: PAIN L/SI FACET INJ/BLK 1STL INDICATIONS: SPONDYLOSIS FINDINGS: Fluoroscopic spot filming was performed to verify placement of spinal needles at the L3-4 through L5-S1 facet regions on the left level(s), as labeled on the films. Appropriate location(s) of the needle tip(s) was confirmed by injection of iodinated contrast. IMPRESSION: Successful needle tip localization for facet injections of steroids, on the left, as noted. Dictated by: Alexandre Garces M.D. on 05/24/2019 at 15:04 Approved by: Alexandre Garces M.D. on 05/24/2019 at 15:05
[2019-05-24] MEDS: MIDAZOLAM 5 MG/5 ML VIAL IV (13:16)
[2019-05-24] MEDS: fentaNYL 100 MCG/2 ML INJ 50 MCG IV (13:16)
[2019-05-24] MEDS: IOPAMIDOL 15 ML VIAL 3 ML INJ (13:22)
[2019-05-24] MEDS: LIDOCAINE 1% 20 ML 10 ML INJ (13:25)
[2019-05-24] MEDS: BUPIVACAINE 0.5% (PF) VIAL 2 ML INJ (13:25)
[2019-05-24] MEDS: BETAMETHASONE 30 MG/5 ML MDV 12 MG INJ (13:25)
--- NOTE | 2019-05-24 13:26 | PC.NURSE ---
ASSISTING PT OFF TABLE AND TRANSPORTING TO POST PROC AREA IN STABLE CONDITION. PASSING RN CARE OF PT OFF TO JOVON CLARKE.
--- NOTE | 2019-05-24 13:37 | P.PCN_ITS ---
Procedures Date/Time Date of procedure: 05/24/19 Time of procedure: 13:37 General Procedure description: PREOP DIAGNOSIS 1. FACET ARTHROPATHY, 2. AXIAL LBP, 3. MULTILEVEL DDD, POST OP DIAGNOSIS 1. FACET ARTHROPATHY, 2. AXIAL LBP, 3. MULTILEVEL DDD, PROCEDURES 1. FLUORSCOPICALLY GUIDED CONTRAST CONTROLLED FACET JOINT INJECTIONS LEFT L3/4, L4/5, L5/S1 SURGEON: Tony Delaney, DO SEARS Martine is referred by DANYELLE Griffith for treatment of Axial LBP FINDINGS Multilevel Facet Arthropathy with Clinically significant axial LBP DESCRIPTION OF PROCEDURE Fluoroscopically guided, contrast-controlled left L3/4, L4/5, L5/S1 facet joint injections. Following review of allergy and review of potential side effects and complications, including, but not necessarily limited to, infection, allergic reaction, local tissue breakdown, stroke, temporary or permanent nerve injury, paralysis, and possible , the patient indicated that the patient understood and agreed to proceed. An informed consent document was signed by the patient, witnessed by a nurse, and placed in the patient's chart. Additionally, other treatment options including medications, modalities, and physical therapy were reviewed with the patient. After review of previous anaesthesic history and IV conscious sedation the patient was deemed safe to proceed with todays procedure with IV conscious sedation as ASA class II designation. Safety time-out was performed to confirm patient ID, procedure to be performed and site of procedure. IV sedation was accomplished with a combination of 2mg of Versed and 50mcg of Fentanyl was administered by the RN after DO order, titrated to patient comfort during the course of the procedure while the patient remained responsive to all verbal commands. In the prone position, following sterile prep and drape of the lumbar region, the posterior aspect of the left L3/4, L4/5, L5/S1 facet joints were identified fluoroscopically. The skin was anesthetized via a 25-gauge 1.5-inch needle with 1% lidocaine solution into the corresponding facet joints. At this point, a 22- gauge 3.5-inch spinal needle was atraumatically introduced and advanced under fluoroscopic guidance into the corresponding facet joints. Following negative aspiration, injections of approximately 0.2-cc of Isovue 200 confirmed interarticular placement without vascular uptake. Radiological data, including multiple fluoroscopic views of the lumbosacral spine, reveal a spinal needle at the left L3/4, L4/5, L5/S1 facet joints. Subsequent views show flow of contrast material both superiorly and inferiorly within the joint space without vascular or intrathecal uptake. At this point, a total of 0.5 cc including a mixture of 0.25cc Marcaine and 0.25cc betamethasone was injected without complication into each of the corre sponding facet joints. The procedure tolerated the procedure well without signs or symptoms of complications prior to transfer to the recovery area continued monitoring without incident. The patient was then transferred to the recovery area where they were observed for an appropriate period of time after the injection. The patient reported a VAS score of 7 prior to the procedure and a post- procedure VAS of 0. Total Fluoroscopy Time: 7 seconds Total Conscious Sedation Time: 24 min POST OP INSTRUCTIONS The patient was provided a Pain Log to continue to record their response to the target-specific procedure prior to follow-up visit with their referring physician. Additionally, specific post-injection care instructions and a contact number to our office were provided if concerns arise regarding possible complications associated with the procedure are suspected. Tony Delaney, DO
== END 2019-05-24 14:50 | disposition home or self-care (01) ==
LOC: RAD 12:34
PROVIDERS: PCP Nurse Practitioner Acute Care; Referring Provider Physical Medicine & Rehabilitation; Visit Provider Physical Medicine & Rehabilitation
DX: M47.816 Spondylosis without myelopathy or radiculopathy, lumbar region (principal); M47.817 Spondylosis without myelopathy or radiculopathy, lumbosacral region; M54.5 Low back pain; M51.36 Other intervertebral disc degeneration, lumbar region; M51.37 Other intervertebral disc degeneration, lumbosacral region
CPT/HCPCS: 64493; 64494; 64495; 99152; J0702; J2250; J3010

== ENCOUNTER → 2019-08-22 10:42 | Outpatient (CLI) | payer OTHER, SELFPAY ==
[2019-08-23 02:06] LABS: COVID19 Sendout Not Detected (Not Detect)
== END ==
PROVIDERS: PCP Nurse Practitioner Acute Care; Visit Provider Physician Assistant
DX: Z01.812 Encounter for preprocedural laboratory examination (principal)
CPT/HCPCS: 87635

== ENCOUNTER 2019-08-25 07:35 | Outpatient (CLI) | payer OTHER, SELFPAY ==
[2019-08-25] VITALS (9 sets, daily range): BP systolic 102–151; BP diastolic 40–81; PULSE 64–76; RESP 16; TEMP 36.4; O2SAT 96–100
--- NOTE | 2019-08-25 07:36 | DI.RAD.S_ITS ---
PROCEDURE: PAIN L/SI FACET INJ/BLK 1STL INDICATIONS: SPONDYLOSIS FINDINGS: Fluoroscopic spot filming was performed to verify placement of spinal needles at the L3, L4, L5, S1 level(s), as labeled on the films. Appropriate location(s) of the needle tip(s) was confirmed by injection of iodinated contrast. Dictated by: Bunny Hughes M.D. on 08/25/2019 at 11:31 Approved by: Bunny Hughes M.D. on 08/25/2019 at 11:32
[2019-08-25] MEDS: fentaNYL 100 MCG/2 ML INJ 50 MCG IV (08:39)
[2019-08-25] MEDS: MIDAZOLAM 5 MG/5 ML VIAL IV (08:39)
[2019-08-25] MEDS: IOPAMIDOL 15 ML VIAL 3 ML INJ (08:48)
[2019-08-25] MEDS: BUPIVACAINE 0.5% (PF) VIAL 5 ML INJ (08:49)
[2019-08-25] MEDS: LIDOCAINE 1% 20 ML 10 ML INJ (08:49)
--- NOTE | 2019-08-25 08:50 | PC.NURSE ---
ASSISTING PT OFF TABLE AND TRANSPORTING TO POST PROC AREA IN STABLE CONDITION. PASSING RN CARE OF PT OFF TO JOVON CLARKE.
--- NOTE | 2019-08-25 08:52 | PM.PROC.1 ---
Procedures Date/Time Date of procedure: 08/25/19 Time of procedure: 08:52 General Procedure description: POST OP DIAGNOSIS 1. FACET ARTHROPATHY PROCEDURES 1. Left L3, L4, L5 and S1 MB BLOCKS PHYSICIAN: DO ORION Garcia Martine is referred by Dr. Cardona for treatment of Left Axial LBP. DESCRIPTION OF PROCEDURE Fluoroscopically guided, contrast-controlled left L3, L4, L5 and S1 medial branch blocks with 0.5cc of 0.5% Marcaine. Following review of allergy and review of potential side effects and complications, including, but not necessarily limited to, infection, allergic reaction, local tissue breakdown, nerve injury, paralysis, stroke and possible , the patient indicated that the patient understood and agreed to proceed. An informed consent document was signed by the patient, witnessed by a nurse, and placed in the patient's chart. After review of previous anaesthesic history and IV conscious sedation the patient was deemed safe to proceed with todays procedure with IV conscious sedation as ASA class II designation. Safety time-out was performed to confirm patient ID, procedure to be performed and site of procedure. IV sedation was accomplished with a combination of 3mg of Versed and 50mcg of Fentanyl was administered by the RN after DO order, titrated to patient comfort during the course of the procedure while the patient remained responsive to all verbal commands. In the prone position, following sterile prep and drape of the lumbar region, the left L3, L4, L5 and S1 anatomical location of the medial branch of the dorsal ramus was identified fluoroscopically. Subsequently an anesthetic skin wheal using 1% lidocaine solution was initiated at each of the anatomical spots. Subsequently then a 22-gauge 3.5-inch spinal needle was atraumatically introduced and advanced under fluoroscopic guidance at each of the corresponding sites at the left L3, L4, L5 and S1 MB. After negative aspiration, 0.2 cc of Isovue 200 was injected, confirming placement without vascular or intrathecal uptake. Subsequently then 0.5 cc of 0.5% Marcaine solution was injected at each of the corresponding sites at the left L3, L4, L5 and S1 medial branch locations. The patient tolerated the procedure well without signs or symptoms of complications. The patient tolerated the procedure well without signs or symptoms of complications prior to transfer to the recovery area continued monitoring without incident. Post-procedure, the patient was monitored initiating provocative activities to measure the amount of relief from block of the facetogenic pain. The patient reported a VAS of 7 prior to the procedure and a post-procedure VAS of 1. It has been a pleasure to assist in the diagnostic and therapeutic care of your patient. Total Fluoroscopy Time: 8 seconds Total Conscious Sedation Time: 24min POST OP INSTRUCTIONS The patient was provided with a Pain Log to complete over the next several hours and subsequent days prior to the patient's follow up with the ordering physician. If the patient has polisher eyeglass frames relief to the solution applied, then they may be a candidate for medial branch rhizotomy. The patient is aware, was provided, once again, with a Pain Log and will follow up with the referring physician for review and clinical correlation Tony Delaney DO Complications: none
--- NOTE | 2019-08-25 10:22 | PC.NURSE ---
PT RETURNED TO PRE PROC ROOM VIA WC, stable transistion from wc to chair. Monitoring resumed By JOVON Zuniga
== END 2019-08-25 09:22 | disposition home or self-care (01) ==
LOC: RAD 07:36
PROVIDERS: PCP Internal Medicine; Referring Provider Physical Medicine & Rehabilitation; Visit Provider Physical Medicine & Rehabilitation
DX: M47.816 Spondylosis without myelopathy or radiculopathy, lumbar region (principal); M47.817 Spondylosis without myelopathy or radiculopathy, lumbosacral region; M54.5 Low back pain
CPT/HCPCS: 64493; 64494; 64495; 99152; J2250; J3010

== ENCOUNTER → 2019-09-05 11:12 | Outpatient (CLI) | payer OTHER, SELFPAY ==
--- NOTE | 2019-09-05 | DI.CT.S_ITS ---
PROCEDURE: CT CHEST WO CON INDICATIONS: Personal history of other malignant neoplasm of br TECHNIQUE: Noncontrast 5 mm thick sections acquired from the pulmonary apices to the posterior costophrenic angles. 1 mm lung window, 5 mm thick coronal and sagittal and 7 mm axial MIP reformats were then acquired. For radiation dose reduction, the following was used: automated exposure control, adjustment of mA and/or kV according to patient size. COMPARISON: [facility], CT, CT CHEST W CON, 03/22/2018, 16:05. [facility], CT, CT CHEST WO CON, 03/04/2019, 12:35. FINDINGS: Image quality: Excellent. Lungs and pleura: 9 mm spiculated solid pulmonary nodule posteriorly in the right middle lobe (3/195), has minimally increased in size since the prior study, but considerably increased since March 2018. Minor subpleural fibrotic changes are present in the posterior medially in the right lower lobe, the and anterolaterally in the left lower lobe. Partially calcified pleural plaquing is present. There are surgical changes of partial left upper lobectomy. No acute air space opacities. No pleural effusions or pneumothorax. Central and peripheral airways are patent and normal in caliber. Mediastinum: Heart size is normal. Moderate coronary artery calcification. No pericardial effusion. No mediastinal adenopathy by size criteria. Thoracic aorta and central pulmonary arteries are normal in size. Esophagus is normal in caliber. Very small hiatal hernia. Bones and chest wall: No suspicious bony lesions. No vertebral body compression fractures. No axillary or supraclavicular adenopathy by size criteria. Thyroid gland is normal. Abdomen: Visualized upper abdominal solid organs and bowel loops appear normal in the absence of contrast. IMPRESSION: 1. Status post partial left upper lobectomy without residual or recurrent disease locally. 2. Enlargement of spiculated right middle lobe lung nodule suspicious for neoplasm given morphology. PET/CT or tissue acquisition is recommended. 3. No adenopathy in the chest. Dictated by: Chani Enciso M.D. on 09/05/2019 at 17:00 Approved by: Chani Enciso M.D. on 09/05/2019 at 17:07
== END ==
PROVIDERS: PCP Internal Medicine; Referring Provider Internal Medicine; Visit Provider Internal Medicine
DX: Z08 Encounter for follow-up examination after completed treatment for malignant neoplasm (principal); Z85.118 Personal history of other malignant neoplasm of bronchus and lung; R91.1 Solitary pulmonary nodule; I25.10 Atherosclerotic heart disease of native coronary artery without angina pectoris
CPT/HCPCS: 71250

== ENCOUNTER → 2019-11-14 14:33 | Outpatient (CLI) | payer OTHER, SELFPAY ==
[2019-11-15 17:56] LABS: COVID19 Sendout Not Detected (Not Detect)
== END ==
PROVIDERS: PCP Internal Medicine; Visit Provider Nurse Practitioner
DX: Z11.59 Encounter for screening for other viral diseases (principal)
CPT/HCPCS: 87635

== ENCOUNTER 2019-11-17 07:28 | Outpatient (CLI) | payer OTHER, SELFPAY ==
[2019-11-17] VITALS (13 sets, daily range): BP systolic 109–149; BP diastolic 74–84; PULSE 69–78; RESP 13–20; TEMP 37; O2SAT 95–100
--- NOTE | 2019-11-17 07:31 | DI.RAD.S_ITS ---
PROCEDURE: PAIN L/S MED/LAT N RFA INDICATIONS: SPONDYLOSIS COMPARISON: None. FINDINGS: Fluoroscopic spot filming was performed to verify placement of spinal needles at the L3, L4, L5 and S1 level(s), as labeled on the films. Appropriate location(s) of the needle tip(s) was confirmed by injection of iodinated contrast. Dictated by: Bunny Hughes M.D. on 11/17/2019 at 10:06 Approved by: Bunny Hughes M.D. on 11/17/2019 at 10:06
[2019-11-17] MEDS: fentaNYL 100 MCG/2 ML INJ 50 MCG IV (08:40)
[2019-11-17] MEDS: MIDAZOLAM 5 MG/5 ML VIAL IV (08:43)
[2019-11-17] MEDS: LIDOCAINE 1% 20 ML 10 ML INJ (09:01)
[2019-11-17] MEDS: BUPIVACAINE 0.5% (PF) VIAL 5 ML INJ (09:01)
--- NOTE | 2019-11-17 09:21 | P.PCN_ITS ---
Date/Time/Diagnoses Date of procedure: 11/17/19 Time of procedure: 09:21 Pre-procedure diagnosis: 1. RECALCITRANT FACET ARTHROPATHY Post-procedure diagnosis: same Procedure Notes Procedure: 1. LEFT L3, L4 AND L5 MEDIAL BRANCH RADIOFREQUENCY NEUROTOMY AND LEFT S1 DORSAL RAMUS RADIOFREQUENCY NEUROTOMY, Indications: Martine is referred by for treatment of facet arthropathy. Physician: Tony Delaney Total Fluoroscopy time (seconds): 20 Total sedation minutes: 35 Complications: none Procedure in detail & Post-procedure care: DESCRIPTION OF PROCEDURE Left L4 and L5 medial branch radiofrequency neurotomy and left S1 dorsal ramus branch radiofrequency neurotomy under fluoroscopy with conscious sedation. The patient is well known to this clinic having undergone previous facet injections with good but temporary relief. The patient has experienced appropriate, concordant relief with previous facet and median branch blocks but the patient's pain has been recalcitrant to further conservative measures. Therefore, based upon the patient's relief and persistent symptoms, the patient is considered an appropriate candidate for facet rhizotomy. All of the patient's questions regarding the risks versus benefits of the procedure, including, but not limited to, bleeding, infection, temporary as well as lasting nerve injury, paralysis, stroke, and , as well treatment alternatives were answered to satisfaction. After obtaining informed consent, denial of pertinent drug allergies, as well as being made aware of the potential risks of bleeding, infection, spinal cord trauma, paralysis, temporary and permanent nerve damage, seizure, stroke, and possible , the patient was brought to the fluoroscopy suite and positioned prone on the fluoroscopy table. The lumbar region was prepped with Betadine and covered with a fenestrated drape in the usual sterile fashion. Appropriate monitors applied including pulse oximeter, pulse, and blood pressure for regular monitoring throughout the procedure. IV sedation was accomplished with a combination of 4mg of Versed and 50mcg of Fentanyl titrated to patient comfort during the course of the procedure while the patient remained responsive to all verbal commands. After local infiltration using 1% lidocaine, under fluoroscopic guidance, a 10- cm RF insulated needle with a 10-mm active tip was positioned parallel to the junction of the left sacral ala and the superior articulating process where the S1 dorsal ramus resides. Needle placement was confirmed with sensory stimulation at 50 Hz, with motor stimulation of .5v on the left which produced local stimulation without radicular component. The stimulation was then increased to 2v with, once again, only local multifidus stimulation without radicular component. This was then followed by two discreet lesions performed at 80 degrees Celsius for 90 seconds each. The needle was then removed and the identical procedure was performed along the length of the left L5 medial branch with motor stimulation at .7v on the left. The identical procedure was once again performed along the length of the left L4 medial branch with motor stimulation of .5v on the left. The identical procedure was once again performed along the length of the left L3 medial branch with motor stimulation of .6v on the left. The patient tolerated the procedure well without signs or symptoms of c omplications prior to transfer to the recovery area continued monitoring without incident. The patient was then transferred to the recovery area where they were observed for an appropriate period of time after the injection. The patient was then transferred to the recovery area where they were observed for an appropriate period of time after the injection. The patient reported a VAS score of 7 prior to the procedure and a post- procedure VAS of 0. POST OP INSTRUCTIONS The patient was provided a Pain Log to continue to record the patient's response to the target-specific procedure prior to the patient's follow-up visit with the referring physician. Additionally, specific post-injection care instructions and a contact number to our office were provided if concerns arise regarding possible complications associated with the procedure are suspected.
== END 2019-11-17 09:39 | disposition home or self-care (01) ==
LOC: RAD 07:28
PROVIDERS: PCP Internal Medicine; Referring Provider Internal Medicine; Visit Provider Physical Medicine & Rehabilitation
DX: M47.816 Spondylosis without myelopathy or radiculopathy, lumbar region (principal); M47.817 Spondylosis without myelopathy or radiculopathy, lumbosacral region
CPT/HCPCS: 64635; 64636; 99152; 99153; J2250; J3010

== ENCOUNTER → 2020-01-30 08:35 | Outpatient (CLI) | payer OTHER, SELFPAY ==
[2020-01-30 09:58] LABS: COVID19 -Nasal RAPID Negative (Negative)
== END ==
PROVIDERS: PCP Internal Medicine; Visit Provider Physician Assistant
DX: Z11.59 Encounter for screening for other viral diseases (principal)
CPT/HCPCS: 87635

== ENCOUNTER 2020-01-31 12:28 | Outpatient (CLI) | payer OTHER, SELFPAY ==
[2020-01-31] VITALS (9 sets, daily range): BP systolic 102–150; BP diastolic 54–77; PULSE 65–73; RESP 11–17; TEMP 36.1; O2SAT 94–100
--- NOTE | 2020-01-31 12:29 | DI.RAD.S_ITS ---
PROCEDURE: PAIN SI JOINT INJECTION INDICATIONS: SACROCOCCYGEAL DISORDER COMPARISON: None. FINDINGS: Fluoroscopic spot filming was performed to verify placement of spinal needles at the inferior left sacroiliac joint level(s), as labeled on the films. Appropriate location(s) of the needle tip(s) was confirmed by injection of iodinated contrast. IMPRESSION: Successful needle tip localization for inferior left sacroiliac joint presume steroid injection. Dictated by: Alexandre Garces M.D. on 01/31/2020 at 14:41 Approved by: Alexandre Garces M.D. on 01/31/2020 at 14:41
[2020-01-31] MEDS: fentaNYL 100 MCG/2 ML INJ 50 MCG IV (13:17)
[2020-01-31] MEDS: MIDAZOLAM 5 MG/5 ML VIAL IV (13:21)
[2020-01-31] MEDS: BETAMETHASONE 30 MG/5 ML MDV 12 MG INJ (13:22)
[2020-01-31] MEDS: IOPAMIDOL 15 ML VIAL 3 ML INJ (13:22)
[2020-01-31] MEDS: BUPIVACAINE 0.5% (PF) VIAL 2 ML INJ (13:22)
--- NOTE | 2020-01-31 13:28 | PM.PROC.IR.1 ---
Date/Time/Diagnoses Date of procedure: 01/31/20 Time of procedure: 13:28 Pre-procedure diagnosis: Sacroiliac Joint Pain/DJD Post-procedure diagnosis: same Procedure Notes Procedure: Fluoroscopically guided contrast controlled left sacroiliac joint injection Indications: Lorenzo is referred by Dr. Cardoan for treatment of left sacroiliac joint DJD Physician: Tony Delaney Total Fluoroscopy time (seconds): 6 Total sedation minutes: 9 Complications: none Procedure in detail & Post-procedure care: DESCRIPTION OF PROCEDURE Fluoroscopic guided, contrast controlled left sacroiliac joint injection Following review of allergies and review of potential side effects and complications, including, but not necessarily limited to, infection, allergic reaction, local tissue breakdown, temporary as well as permanent nerve injury, paralysis, stroke and possible , the patient indicated that they understood and agreed to proceed. An informed consent was signed by the patient, witnessed by a nurse, and placed in the patient's chart. Additionally, other treatment options including modalities, medications, and physical therapy were reviewed with the patient. After review of previous anaesthesic history and IV conscious sedation the patient was deemed safe to proceed with today?s procedure with IV conscious sedation as ASA class II designation. Safety time-out was performed to confirm patient ID, procedure to be performed and site of procedure. IV sedation was accomplished with a combination of 3mg of Versed and 50mcg of Fentanyl administered by the RN after DO order, titrated to patient comfort during the course of the procedure while the patient remained responsive to all verbal commands. In the prone position following sterile prep and drape of the pelvic region, the hyper lucency on in the inferior aspect of the left sacroiliac joint was identified fluoroscopically the skin was anesthetized be a 25 gauge 1 eventual with approximately 2cc of 1% lidocaine solution. At this point, a 22 gauge 3inch spinal needle was atraumatically introduced and advanced under fluoroscopic guidance into the inferior aspect of the left sacroiliac joint. Following negative aspiration, approximately 0.3cc of Isovue-300 was injected confirming intra-articular placement without vascular uptake. Radiographic data, including multiple fluoroscopic views of the pelvis, reveals a spinal needle in the left sacroiliac joint hyper lucent zone. Subsequent view show flow contrast tear superiorly and inferiorly within the joint capsule without vascular intrathecal uptake. At this point a total of 1cc or 0.5% Marcaine was combined with 1cc of 6mg of betamethasone was injected without incident. The patient tolerated the procedure well without signs or symptoms of complications prior to transfer to the recovery area for further monitoring. The patient was then transferred to the recovery area with a bur observed for an appropriate time after the injection. The patient reverted a vas score of 7 prior to the procedure and postprocedure vas of 1. POSTOP INSTRUCTIONS The patient was provided with a pain like to continue to record the patient's response to the target specific procedure prior to the patient's follow-up visit with the referring physician. Additionally, specific post injection care instructions and a contact number to our office were provided if concerns arise regarding the possible complications associated with procedure are suspected.
== END 2020-01-31 13:55 | disposition home or self-care (01) ==
LOC: RAD 12:28
PROVIDERS: PCP Internal Medicine; Referring Provider Internal Medicine; Visit Provider Physical Medicine & Rehabilitation
DX: M53.3 Sacrococcygeal disorders, not elsewhere classified (principal); M46.1 Sacroiliitis, not elsewhere classified
CPT/HCPCS: 27096; J0702; J2250; J3010

== ENCOUNTER → 2020-03-08 11:18 | Outpatient (CLI) | payer OTHER, SELFPAY ==
--- NOTE | 2020-03-08 11:20 | DI.US.S_ITS ---
PROCEDURE: US ABDOMEN COMPLETE INDICATIONS: RIGHT UPPER QUADRANT PAIN TECHNIQUE: Real-time scanning was performed of the abdominal and retroperitoneal organs, with image documentation. COMPARISON: None. FINDINGS: Liver: Liver is small in size measures 10.7 centimeters in length. Slightly increased liver parenchymal echotexture is seen. No discrete hepatic lesion. Gallbladder: Sludge and mobile stones are seen in dependent portion of gallbladder lumen measures 7 x 8 x 8 mm in size. No gallbladder wall thickening or pericholecystic fluid. No sonographic Kelley sign. Biliary ducts: Intrahepatic bile ducts are non-dilated. Extrahepatic bile duct caliber measures 3.5 mm. Normal is 6-7 mm or less in diameter, or 10 mm or less post-cholecystectomy. Pancreas: Visualized portions of the pancreas are sonographically normal. Spleen: Spleen is normal in size. Multiple echogenic foci are seen scattered in splenic parenchyma and showed internal vascularity measures up to 6 x 8 x 4 mm in size in mid portion of spleen and up to 6 x 5 x 5 mm in size in lateral portion of spleen. Kidneys: Kidneys are normal in size and echotexture. Right kidney measures 9.9 cm long; left kidney measures 10.1 cm long. No definite hydronephrosis or nephrolithiasis. Very mild left-sided pelviectasis is seen. No solid masses. Aorta: Visualized aorta is normal in caliber at less than 3 cm. Iliacs: Proximal common iliac arteries are normal in caliber at less than 2.5 cm. IVC: Intrahepatic inferior vena cava is patent. Miscellaneous: No free abdominal fluid. IMPRESSION: 1. Cholelithiasis without sonographic evidence of acute cholecystitis. No biliary ductal dilatation. 2. Small liver size. No discrete hepatic lesion. Very mildly increased liver parenchymal echotexture. 3. At least 3 subcentimeter hyperechoic and solid appearing nodules within splenic parenchyma with mild internal vascularity and are of indeterminate etiology. 4. Very mild left renal caliectasis which may represent peripelvic renal cyst. No definite hydronephrosis or nephrolithiasis. Dictated by: Alfredo Mckenna M.D. on 03/08/2020 at 13:41 Approved by: Alfredo Mckenna M.D. on 03/08/2020 at 13:45
== END ==
PROVIDERS: PCP Internal Medicine; Referring Provider Physician Assistant; Visit Provider Physician Assistant
DX: R10.11 Right upper quadrant pain (principal); K80.20 Calculus of gallbladder without cholecystitis without obstruction
CPT/HCPCS: 76700

== ENCOUNTER → 2020-03-20 14:24 | Outpatient (CLI) | payer OTHER, SELFPAY ==
[2020-03-20 15:32] LABS: COVID19 -Nasal RAPID Negative (Negative)
== END ==
PROVIDERS: PCP Internal Medicine; Visit Provider Surgery
DX: Z01.812 Encounter for preprocedural laboratory examination (principal); Z20.822 Contact with and (suspected) exposure to COVID-19
CPT/HCPCS: 87635; C9803

== ENCOUNTER 2020-03-21 11:41 | Day surgery (SDC) | payer OTHER, SELFPAY ==
[2020-03-16 13:24] VITALS: BMI 21.6
[2020-03-21] VITALS (19 sets, daily range): BP systolic 133–172; BP diastolic 54–91; PULSE 79–88; RESP 12–18; TEMP 36.1–36.6; O2SAT 96–99; BMI 21.6
--- NOTE | 2020-03-21 | PATH_ITS ---
[facility] Accession Number: [id number] . 01 Material submitted: . gallbladder - GALLBLADDER . 02 Diagnosis: Gallbladder, Cholecystectomy: Cholelithiasis. No evidence of neoplasm. [facility] 03/26/2020 1221 Local . 02 Electronically signed: . Bennett Min MD, PhD, Pathologist NPI- [id number] . 01 Gross description: . The specimen is received in formalin, labeled gallbladder and consists of a 9.5 x 4.0 x 3.8 cm intact gallbladder with a 0.3 cm in diameter cystic duct. The serosa is kingsley-green and smooth. Opening reveals green viscous bile with four black cholelith fragments measuring 1.2 x 1.0 x 0.6 cm in aggregate. The mucosa is kingsley-green and velvety to trabeculated, and the wall thickness measures 0.1 cm. Bioinformatics Team Member sections are submitted to include the en face cystic duct margin (blue) in cassette A1. ([id number]) /MRV 03/23/2020 1330 Local . 02 Pathologist provided ICD-10: K80.20 . 02 CPT . 524824 Performed at: 01 [facility] [address], [place], [place] [id number] MD Robe Owens MD Phone: [phone] Performed at: 02 [facility] [address] [place], [place] [id number] MD Rebecca Ontiveros MD Phone: [phone]
[2020-03-21] MEDS: Non-Formulary Medication (Indocyanine 25 MG) 25 EACH IV (12:05)
[2020-03-21] MEDS: LACTATED RINGERS 1,000 ML 42 ML IV (12:20)
--- NOTE | 2020-03-21 12:53 | PM.PREOP ---
Pre-operative Note COVID-19 COVID-19 status: Negative Result date/Date tested (Pos, Neg/Pending): 03/20/20 Interval Note History & Physical reviewed/Exam performed by Physician: Yes Changes to H&P: No
[2020-03-21] MEDS: PIPERACILLIN-TAZO 3.375 GM/50 ML FROZ.PIGGY IV (13:06)
--- NOTE | 2020-03-21 13:28 | SUR.OPER ---
Supine on padded OR bed, head on pillow, arms secured on padded arm boards at <90 degrees abduction, legs uncrossed, safety belt at thigh, tape over blanket over lower legs.
[2020-03-21] MEDS: BUPIVACAINE 0.25% W/ EPI (PF) 10 ML VIAL 20 ML INJ (13:34)
--- NOTE | 2020-03-21 14:39 | P.OP_ITS ---
Operative Date/Time/Diagnoses Date of procedure: 03/21/20 Time of procedure: 14:39 Pre-op diagnosis: Symptomatic cholelithiasis Post-op diagnosis: other (Symptomatic cholelithiasis, chronic cholecystitis) Procedure & Clinicians Procedure: Laparoscopic cholecystectomy with indocyanin cholangiography Same procedure as scheduled: Yes Indications: Symptomatic cholelithiasis Surgeon: Cheyanne Tejeda Click Yes if Unassisted: Yes Anesthesia Type: General Operative Notes Findings: Thickened gall bladder with inflammatory adehesions to omentum and stomach Specimen(s): other (gall bladder and contents) Estimated Blood Loss (mL): 1 Procedure in detail: The patient was brought into the operating room and pl aced supine on the OR table. Sequential compression devices were placed on both legs and turned on. Appropriate perioperative antibiotics were given prior to the start of surgery. General anesthesia was induced the patient was intubated. The abdomen was prepped and draped in sterile fashion. Surgical time-out was conducted. Local anesthetic was injected under the skin just superior to the um bilicus and a 5 mm vertical incision was made at this site. The umbilical stalk was grasped with a Gilma and elevated. A Veress needle was passed through the fascia into proper position. The position was tested with a saline drop test which was appropriate for intra-abdominal Veress needle placement. The abdomen was then insufflated in the usual fashion. Once insufflated to 15 mm Hg the Veress needle was removed and a 5 mm optical trocar was placed under direct vision using a 5 mm 30 degree scope. Once the camera was inside the abdomen I took a look around. There was no injury from port placement. Two additional ports were placed in a similar fashion in the right upper quadrant and a 10 mm port was placed in the epigastrium. There was quite a bit of adherent omentum onto the surface of the gallbladder, as well as inflammatory adhesions between the gallbladder and stomach. These were carefully taken down using hook cautery and [place] dissector avoiding injury to the gallbladder or stomach. Through the 2 lateral ports the gallbladder was grasped and elevated and the infundibulum was retracted laterally to the patient's right. This exposed the gallbladder hilum and allowed for dissection of the cystic duct and cystic artery. There was quite a bit of dense scar tissue throughout the gallbladder hilum. This required tedious careful dissection with a [place] to dissect her and L hook cautery. Once the cystic duct and artery were completely dissected out and I was able to see liver behind and between both structures without any other structures in the way, giving us the critical view of safety. Indocyanine green cholangiography was used to confirm the position of the cystic duct and common duct , giving a clear view of the cystic duct prior to clipping. At this point I triply clipped both structures on the patient's side and put a single clip on the gallbladder side of both the cystic duct and artery. Both structures were then divided with laparoscopic [place]. Following this the gallbladder was gradually dissected free from the liver using L hook cautery to divide the peritoneal attachments Of the gallbladder to the liver. Once the gallbladder was entirely freed, it was placed inside an Endo- Catch bag and removed through the epigastric port site. I [did] have to enlarge the epigastric site in order to get the gallbladder out. Once it was out and passed off to the back table I then took another look inside the abdomen. I suctioned clean any remaining blood or fluid on the lateral side of the liver and in the subhepatic space. There was no active bleeding or leaking of bile from the gallbladder fossa or from the clipped stumps of the cystic duct and artery. At this point the epigastric port site was closed with 0 Vicryl suture in the fascia using a Jarred Carter suture passer. Insufflation was removed from the abdomen and the epigastric port site was closed with 3 O Vicryl in the subcutaneous layers, and 4 Monocryl in the skin. The remaining port sites were closed with 4 Monocryl in the skin. Each port site was sealed with Dermabond. Local anesthetic was given at each of the port sites and in the fascia. This c oncluded the procedure. At this point the needle sponge and instrument counts were correct. The gallbladder was passed off the table for pathology. Patient was awakened from anesthesia and extubated. She was transferred to the postanesthesia care unit in stable condition. Complications: none Post-operative Condition: stable Disposition: PACU
[2020-03-21] MEDS: ONDANSETRON 4 MG/2 ML INJ IV ×2 (14:44→15:42)
[2020-03-21] MEDS: LACTATED RINGERS 1,000 ML 100 ML IV (15:14)
--- NOTE | 2020-03-21 15:36 | SUR.PHASEI ---
pt. woke up with some nasuea. was given zofran ivp. states a little later she is having some pain. anesthesiologist at bedside to assess, no new orders received. dr. craig at bedside a little later to speak with pt. about her nausea and pain. pt. is refusing pain meds at this time and states she wants to wait. Pt. may be admitted, she is aware of this. otherwise, pt. is stable and able to move freely in bed with no difficulty. ongoing monitoring.
--- NOTE | 2020-03-21 15:56 | SUR.PHASEI ---
pt. states she is starting to feel a lot better from her nausea, still refusing pain medication. ongoing monitoring.
== END 2020-03-21 17:03 | disposition home or self-care (01) ==
PROVIDERS: PCP Internal Medicine; Referring Provider Internal Medicine; Visit Provider Surgery
PROC: 0FT44ZZ Resection of Gallbladder, Percutaneous Endoscopic Approach (ICD-10-PCS; CPT 47562; principal; 2020-03-21 13:00)
DX: K80.10 Calculus of gallbladder with chronic cholecystitis without obstruction (principal); J44.9 Chronic obstructive pulmonary disease, unspecified; I10 Essential (primary) hypertension
CPT/HCPCS: 47563; J1100; J2405; J2543; J2704; J3010

== ENCOUNTER → 2020-05-01 14:30 | Outpatient (CLI) | payer OTHER, SELFPAY ==
[2020-05-01 15:45] LABS: COVID19 -Nasal RAPID Negative (Negative)
== END ==
PROVIDERS: PCP Physician Assistant; Visit Provider Physical Medicine & Rehabilitation
DX: Z20.822 Contact with and (suspected) exposure to COVID-19 (principal)
CPT/HCPCS: 87635; C9803

== ENCOUNTER 2020-05-03 12:54 | Outpatient (CLI) | payer OTHER, SELFPAY ==
[2020-05-03] VITALS (8 sets, daily range): BP systolic 119–147; BP diastolic 66–84; PULSE 70–82; RESP 12–20; TEMP 36.6; O2SAT 94–100
--- NOTE | 2020-05-03 12:56 | DI.RAD.S_ITS ---
PROCEDURE: PAIN SI JOINT INJECTION INDICATIONS: SACROILIAC COMPARISON: [facility], , PAIN SI JOINT INJECTION, 01/31/2020, 13:20. FINDINGS: On this intraprocedural image, there is a spinal needle seen overlying the inferior aspect of the right sacroiliac joint. Appropriate placement of the tip of the needle was confirmed with injection of a small amount iodinated contrast. IMPRESSION: Intraprocedural examination within normal limits. Dictated by: Paulino Beasley M.D. on 05/03/2020 at 13:21 Approved by: Paulino Beasley M.D. on 05/03/2020 at 13:21
[2020-05-03] MEDS: fentaNYL 100 MCG/2 ML INJ 50 MCG IV (13:46)
[2020-05-03] MEDS: MIDAZOLAM 5 MG/5 ML VIAL IV (13:46)
[2020-05-03] MEDS: BUPIVACAINE 0.5% (PF) VIAL 2 ML INJ (13:50)
[2020-05-03] MEDS: IOPAMIDOL 15 ML VIAL 3 ML INJ (13:50)
[2020-05-03] MEDS: BETAMETHASONE 30 MG/5 ML MDV 12 MG INJ (13:51)
--- NOTE | 2020-05-03 13:55 | PM.PROC.IR.1 ---
Date/Time/Diagnoses Date of procedure: 05/03/20 Time of procedure: 13:55 Pre-procedure diagnosis: Sacroiliac joint pain/DJD Post-procedure diagnosis: same Procedure Notes Procedure: Fluoroscopically guided contrast controlled right sacroiliac joint injection Indications: Lorenzo is referred by [facility] for treatment of right sacroiliac joint DJD Physician: Tony Delaney Total Fluoroscopy time (seconds): 8 Total sedation minutes: 6 Complications: none Procedure in detail & Post-procedure care: DESCRIPTION OF PROCEDURE Fluoroscopically guided, contrast controlled right sacroiliac joint injection Following review of allergies and review of potential side effects and complications, including, but not necessarily limited to, infection, allergic reaction, local tissue breakdown, temporary as well as permanent nerve injury, paralysis, stroke and possible , the patient indicated that they understood and agreed to proceed. An informed consent was signed by the patient, witnessed by a nurse, and placed in the patient's chart. Additionally, other treatment options including modalities, medications, and physical therapy were reviewed with the patient. After review of previous anaesthesic history and IV conscious sedation the patient was deemed safe to proceed with today?s procedure with IV conscious sedation as ASA class II designation. Safety time-out was performed to confirm patient ID, procedure to be performed and site of procedure. IV sedation was accomplished with a combination of 2mg of Versed and 50mcg of Fentanyl was administered by the RN after DO order, titrated to patient comfort during the course of the procedure while the patient remained responsive to all verbal commands In the prone position following sterile prep and drape of the pelvic region, the hyper lucency on in the inferior aspect of the sacroiliac joint was identified fluoroscopically the skin was anesthetized be a 25 gauge 1 eventual with approximately 2 cc of 1% lidocaine solution. At this point, a 22 gauge 3 in spinal needle was atraumatically introduced and advanced under fluoroscopic guidance into the inferior aspect of the right sacroiliac joint. Following negative aspiration, approximately 0.3cc of Isovue-300 was injected confirming intra-articular placement without vascular uptake. Radiographic data, including multiple fluoroscopic views of the pelvis, reveals a spinal needle in the sacroiliac joint hyper lucent zone. Subsequent view show flow contrast tear superiorly and inferiorly within the joint capsule without vascular intrathecal uptake. At this point a total of 1 of 0.5% Marcaine was combined with 1cc of 6 mg of betamethasone was injected without incident. The procedure tolerated the procedure well without signs or symptoms of complications prior to transfer to the recovery area continued monitoring without incident. The patient was then transferred to the recovery area with a bur observed for an appropriate time after the injection. The patient reverted a vas score of 7 prior to the procedure and post-procedure vas of 1. POSTOP INSTRUCTIONS The patient was provided with a pain like to continue to record the patient's response to the target specific procedure prior to the patient's follow-up visit with the referring physician. Additionally, specific post injection care instructions and a contact number to our office were provided if concerns arise regarding the possible complications associated with procedure are suspected.
== END 2020-05-03 14:20 | disposition home or self-care (01) ==
LOC: RAD 12:55
PROVIDERS: PCP Physician Assistant; Referring Provider Physical Medicine & Rehabilitation; Visit Provider Physical Medicine & Rehabilitation
DX: M53.3 Sacrococcygeal disorders, not elsewhere classified (principal); M46.1 Sacroiliitis, not elsewhere classified
CPT/HCPCS: 27096; J0702; J2250; J3010

== ENCOUNTER → 2020-05-28 11:09 | Outpatient (CLI) | payer OTHER, SELFPAY ==
[2020-05-28 12:55] LABS: Alanine Aminotransferase 41 IU/L (<35); Albumin 4.1 g/dL (3.5-5.0); Albumin Globulin Ratio 1.5 (1.0-2.8); Alkaline Phosphatase 126 U/L (38-126); Aspartate Aminotransferase 46 IU/L (14-36); Bilirubin Total 0.3 mg/dL (0.2-1.3); Bilirubin Unconjugated 0.3 mg/dL (0.0-1.1); Globulin 2.7 g/dL (1.7-4.1); HEMOLYSIS < 15 (0-50); Total Protein 6.8 g/dL (6.3-8.2)
== END ==
PROVIDERS: PCP Physician Assistant; Referring Provider Internal Medicine Hematology & Oncology; Visit Provider Internal Medicine Hematology & Oncology
DX: C34.90 Malignant neoplasm of unspecified part of unspecified bronchus or lung (principal)
CPT/HCPCS: 36415; 80076

== ENCOUNTER → 2020-07-16 13:16 | Outpatient (CLI) | payer OTHER, SELFPAY ==
[2020-07-16 18:38] LABS: COVID19 -Nasal RAPID Negative (Negative)
== END ==
PROVIDERS: PCP Physician Assistant; Visit Provider Physical Medicine & Rehabilitation
DX: Z20.822 Contact with and (suspected) exposure to COVID-19 (principal)
CPT/HCPCS: 87635; C9803

== ENCOUNTER 2020-07-17 12:23 | Outpatient (CLI) | payer OTHER, SELFPAY ==
[2020-07-17] VITALS (9 sets, daily range): BP systolic 112–164; BP diastolic 56–88; PULSE 77–86; RESP 12–22; TEMP 35.9; O2SAT 94–100
--- NOTE | 2020-07-17 12:26 | DI.RAD.S_ITS ---
PROCEDURE: PAIN L/SI FACET INJ/BLK 1STL INDICATIONS: SPONDYLOSIS COMPARISON: [facility], , PAIN L/SI FACET INJ/BLK 1STL, 08/25/2019, 7:41. FINDINGS: Fluoroscopic spot filming was performed to verify placement of spinal needles at the L4-L5 level and L5-S1 level, as labeled on the films. Appropriate location of the needle tips was confirmed by injection of iodinated contrast. IMPRESSION: Intraprocedural examination within normal limits. Dictated by: Paulino Beasley M.D. on 07/17/2020 at 12:49 Approved by: Paulino Beasley M.D. on 07/17/2020 at 12:49
[2020-07-17] MEDS: fentaNYL 100 MCG/2 ML INJ 50 MCG IV (13:04)
[2020-07-17] MEDS: BUPIVACAINE 0.5% (PF) VIAL 2 ML INJ (13:08)
[2020-07-17] MEDS: MIDAZOLAM 5 MG/5 ML VIAL IV (13:08)
[2020-07-17] MEDS: IOPAMIDOL 15 ML VIAL 3 ML INJ (13:09)
[2020-07-17] MEDS: BETAMETHASONE 30 MG/5 ML MDV 12 MG INJ (13:09)
--- NOTE | 2020-07-17 13:16 | P.PCN_ITS ---
Date/Time/Diagnoses Date of procedure: 07/17/20 Time of procedure: 13:16 Pre-procedure diagnosis: 1. FACET ARTHROPATHY, 2. AXIAL LBP, 3. MULTILEVEL DDD Post-procedure diagnosis: same Procedure Notes Procedure: 1. FLUOROSCOPICALLY GUIDED CONTRAST CONTROLLED FACET JOINT INJECTIONS RIGHT L4/5, L5/S1 Indications: Martine is referred by [facility] for treatment of Axial LBP Physician: Tony Delaney Total Fluoroscopy time (seconds): 5 Total sedation minutes: 9 Complications: none Procedure in detail & Post-procedure care: FINDINGS Multilevel Facet Arthropathy with Clinically significant axial LBP DESCRIPTION OF PROCEDURE Fluoroscopically guided, contrast-controlled right L4/5, L5/S1 facet joint injections. Following review of allergy and review of potential side effects and complications, including, but not necessarily limited to, infection, allergic reaction, local tissue breakdown, stroke, temporary or permanent nerve injury, paralysis, and possible , the patient indicated that the patient understood and agreed to proceed. An informed consent document was signed by the patient, witnessed by a nurse, and placed in the patient's chart. Additionally, other treatment options including medications, modalities, and physical therapy were reviewed with the patient. After review of previous anaesthesic history and IV conscious sedation the patient was deemed safe to proceed with today?s procedure with IV conscious sedation as ASA class II designation. Safety time-out was performed to confirm patient ID, procedure to be performed and site of procedure. IV sedation was accomplished with a combination of 3mg of Versed and 50mcg of Fentanyl was administered by the RN after DO order, titrated to patient comfort during the course of the procedure while the patient remained responsive to all verbal commands. In the prone position, following sterile prep and drape of the lumbar region, the posterior aspect of the right L4/5, L5/S1 facet joints were identified fluoroscopically. The skin was anesthetized via a 25-gauge 1.5-inch needle with 1% lidocaine solution into the corresponding facet joints. At this point, a 22- gauge 3.5-inch spinal needle was atraumatically introduced and advanced under fluoroscopic guidance into the corresponding facet joints. Following negative aspiration, injections of approximately 0.2-cc of Isovue 200 confirmed interarticular placement without vascular uptake. Radiological data, including multiple fluoroscopic views of the lumbosacral spine, reveal a spinal needle at the right L4/5, L5/S1 facet joints. Subsequent views show flow of contrast material both superiorly and inferiorly within the joint space without vascular or intrathecal uptake. At this point, a total of 0.5cc including a mixture of 0.25cc Marcaine and 0.25cc betamethasone was injected without complication into each of the corresponding facet joints. The procedure tolerated the procedure well without signs or symptoms of com plications prior to transfer to the recovery area continued monitoring without incident. The patient was then transferred to the recovery area where they were observed for an appropriate period of time after the injection. The patient reported a VAS score of 7 prior to the procedure and a post-procedure VAS of 0. POST OP INSTRUCTIONS The patient was provided a Pain Log to continue to record their response to the target-specific procedure prior to follow-up visit with their referring physician. Additionally, specific post-injection care instructions and a contact number to our office were provided if concerns arise regarding possible complications associated with the procedure are suspected.
== END 2020-07-17 13:43 | disposition home or self-care (01) ==
LOC: RAD 12:26
PROVIDERS: PCP Physician Assistant; Referring Provider Physical Medicine & Rehabilitation; Visit Provider Physical Medicine & Rehabilitation
DX: M47.816 Spondylosis without myelopathy or radiculopathy, lumbar region (principal); M47.817 Spondylosis without myelopathy or radiculopathy, lumbosacral region; M51.36 Other intervertebral disc degeneration, lumbar region; M51.37 Other intervertebral disc degeneration, lumbosacral region; M54.5 Low back pain
CPT/HCPCS: 64493; 64494; J0702; J2250; J3010

== ENCOUNTER → 2020-10-09 08:19 | Outpatient (CLI) | payer OTHER, SELFPAY ==
[2020-10-09 15:04] LABS: COVID19 -Nasal RAPID Negative (Negative)
== END ==
PROVIDERS: PCP Physician Assistant; Visit Provider Physical Medicine & Rehabilitation
DX: Z20.822 Contact with and (suspected) exposure to COVID-19 (principal)
CPT/HCPCS: 87635; C9803

== ENCOUNTER 2020-10-11 13:44 | Outpatient (CLI) | payer OTHER, SELFPAY ==
[2020-10-11] VITALS (9 sets, daily range): BP systolic 101–150; BP diastolic 60–79; PULSE 74–84; RESP 12–27; TEMP 36.4; O2SAT 96–100
--- NOTE | 2020-10-11 13:47 | DI.RAD.S_ITS ---
PROCEDURE: PAIN L/SI FACET INJ/BLK 1STL INDICATIONS: SPONDYLOSIS COMPARISON: [facility], , PAIN L/SI FACET INJ/BLK 1STL, 07/17/2020, 13:10. FINDINGS: Fluoroscopic spot filming was performed to verify placement of spinal needles at the L4, L5, and S1 level(s), as labeled on the films. Appropriate location(s) of the needle tip(s) was confirmed by injection of iodinated contrast. IMPRESSION: Intraprocedural examination within normal limits. Dictated by: Paulino Beasley M.D. on 10/11/2020 at 13:58 Approved by: Paulino Beasley M.D. on 10/11/2020 at 13:58
[2020-10-11] MEDS: fentaNYL 100 MCG/2 ML INJ 50 MCG IV (14:04)
[2020-10-11] MEDS: MIDAZOLAM 5 MG/5 ML VIAL IV (14:08)
[2020-10-11] MEDS: LIDOCAINE 1% 20 ML 10 ML INJ (14:09)
[2020-10-11] MEDS: BUPIVACAINE 0.5% (PF) VIAL 2 ML INJ (14:09)
[2020-10-11] MEDS: IOPAMIDOL 15 ML VIAL 3 ML INJ (14:10)
--- NOTE | 2020-10-11 14:18 | P.PCN_ITS ---
Date/Time/Diagnoses Date of procedure: 10/11/20 Time of procedure: 14:18 Pre-procedure diagnosis: 1. FACET ARTHROPATHY Post-procedure diagnosis: same Procedure Notes Procedure: 1. Right L4, L5 and S1 MB BLOCKS Indications: Martine is referred by [facility] for treatment of Right Axial LBP. Physician: Tony Delaney Total Fluoroscopy time (seconds): 5 Total sedation minutes: 11 Complications: none Procedure in detail & Post-procedure care: DESCRIPTION OF PROCEDURE Fluoroscopically guided, contrast-controlled right L4, L5 and S1 medial branch blocks with 0.5cc of 0.5% Marcaine. Following review of allergy and review of potential side effects and complications, including, but not necessarily limited to, infection, allergic reaction, local tissue breakdown, nerve injury, paralysis, stroke and possible , the patient indicated that the patient understood and agreed to proceed. An informed consent document was signed by the patient, witnessed by a nurse, and placed in the patient's chart. After review of previous anaesthesic history and IV conscious sedation the patient was deemed safe to proceed with today?s procedure with IV conscious sedation as ASA class II designation. Safety time-out was performed to confirm patient ID, procedure to be performed and site of procedure. IV sedation was accomplished with a combination of 3mg of Versed and 50mcg of Fentanyl was administered by the RN after DO order, titrated to patient comfort during the course of the procedure while the patient remained responsive to all verbal commands In the prone position, following sterile prep and drape of the lumbar region, the right L4, L5 and S1 anatomical location of the medial branch of the dorsal ramus was identified fluoroscopically. Subsequently an anesthetic skin wheal using 1% lidocaine solution was initiated at each of the anatomical spots. Subsequently then a 22-gauge 3.5-inch spinal needle was atraumatically introduced and advanced under fluoroscopic guidance at each of the corresponding sites at the right L4, L5 and S1 MB. After negative aspiration, 0.2 cc of Isovue 200 was injected, confirming placement without vascular or intrathecal uptake. Subsequently then 0.5 cc of 0.5% Marcaine solution was injected at each of the corresponding sites at the right L4, L5 and S1 medial branch locations. The patient tolerated the procedure well without signs or symptoms of complicati ons. The procedure tolerated the procedure well without signs or symptoms of complications prior to transfer to the recovery area continued monitoring without incident. Post-procedure, the patient was monitored initiating provocative activities to measure the amount of relief from block of the facetogenic pain. The patient reported a VAS of 7 prior to the procedure and a post-procedure VAS of 1. It has been a pleasure to assist in the diagnostic and therapeutic care of your patient. POST OP INSTRUCTIONS The patient was provided with a Pain Log to complete over the next several hours and subsequent days prior to the patient's follow up with the ordering physician. If the patient has firearms specialist relief to the solution applied, then they may be a candidate for medial branch rhizotomy. The patient is aware, was provided, once again, with a Pain Log and will follow up with the referring physician for review and clinical correlation.
== END 2020-10-11 14:40 | disposition home or self-care (01) ==
LOC: RAD 13:46
PROVIDERS: PCP Physician Assistant; Referring Provider Physical Medicine & Rehabilitation; Visit Provider Physical Medicine & Rehabilitation
DX: M47.816 Spondylosis without myelopathy or radiculopathy, lumbar region (principal); M47.817 Spondylosis without myelopathy or radiculopathy, lumbosacral region
CPT/HCPCS: 64493; 64494; 99152; J2250; J3010

== ENCOUNTER → 2020-10-12 10:33 | Outpatient (CLI) | payer OTHER, SELFPAY ==
[2020-10-12 10:54] LABS: COVID19 -Nasal RAPID Negative (Negative)
== END ==
PROVIDERS: PCP Physician Assistant; Referring Provider Physician Assistant; Visit Provider Physician Assistant
DX: Z20.822 Contact with and (suspected) exposure to COVID-19 (principal)
CPT/HCPCS: 87635

== ENCOUNTER → 2020-11-27 14:25 | Outpatient (CLI) | payer OTHER, SELFPAY ==
[2020-11-27 15:37] LABS: COVID19 -Nasal RAPID Negative (Negative)
== END ==
PROVIDERS: PCP Physician Assistant; Visit Provider Physical Medicine & Rehabilitation
DX: Z20.822 Contact with and (suspected) exposure to COVID-19 (principal)
CPT/HCPCS: 87635; C9803

== ENCOUNTER 2020-11-29 10:44 | Outpatient (CLI) | payer OTHER, SELFPAY ==
[2020-11-29] VITALS (10 sets, daily range): BP systolic 113–184; BP diastolic 61–85; PULSE 77–88; RESP 10–22; TEMP 37; O2SAT 96–100
--- NOTE | 2020-11-29 12:05 | DI.RAD.S_ITS ---
PROCEDURE: PAIN L/S MED/LAT N RFA INDICATIONS: Right L4-L5 and S1 medial branch RFA COMPARISON: [facility], , PAIN L/S MED/LAT N RFA, 11/17/2019, 8:42. FINDINGS: Fluoroscopic spot filming was performed to verify placement of spinal needles at the L4, L5, S1 level(s), as labeled on the films. Appropriate location(s) of the needle tip(s) was confirmed by injection of iodinated contrast. Dictated by: Bunny Hughes M.D. on 12/03/2020 at 8:49 Approved by: Bunny Hughes M.D. on 12/03/2020 at 8:54
[2020-11-29] MEDS: fentaNYL 100 MCG/2 ML INJ 50 MCG IV (12:15)
[2020-11-29] MEDS: MIDAZOLAM 5 MG/5 ML VIAL IV (12:15)
[2020-11-29] MEDS: BUPIVACAINE 0.5% (PF) VIAL 5 ML INJ (12:21)
[2020-11-29] MEDS: BUPIVACAINE 0.25% (PF) VIAL 5 ML INJ (12:23)
--- NOTE | 2020-11-29 12:39 | P.PCN_ITS ---
Date/Time/Diagnoses Date of procedure: 11/29/20 Time of procedure: 12:40 Pre-procedure diagnosis: 1. RECALCITRANT FACET ARTHROPATHY Post-procedure diagnosis: same Procedure Notes Procedure: 1. RIGHT L4 AND L5 MEDIAL BRANCH RADIOFREQUENCY NEUROTOMY AND RIGHT S1 DORSAL RAMUS BRANCH RADIOFREQUENCY NEUROTOMY Indications: Martine is referred by [facility] for treatment of facet arthropathy. Physician: Tony Delaney Total Fluoroscopy time (seconds): 18 Total sedation minutes: 16 Complications: none Procedure in detail & Post-procedure care: DESCRIPTION OF PROCEDURE Right L4 and L5 medial branch radiofrequency neurotomy and right S1 dorsal ramus branch radiofrequency neurotomy under fluoroscopy with conscious sedation. The patient is well known to this clinic having undergone previous facet injections with good but temporary relief. The patient has experienced appropriate, concordant relief with previous facet and median branch blocks but the patient's pain has been recalcitrant to further conservative measures. Therefore, based upon the patient's relief and persistent symptoms, the patient is considered an appropriate candidate for facet rhizotomy. All of the patient's questions regarding the risks versus benefits of the procedure, including, but not limited to, bleeding, infection, temporary as well as lasting nerve injury, paralysis, stroke, and , as well treatment alternatives were answered to satisfaction. After review of previous anaesthesic history and IV conscious sedation the patient was deemed safe to proceed with today?s procedure with IV conscious sedation as ASA class II designation. Safety time-out was performed to confirm patient ID, procedure to be performed and site of procedure. IV sedation was accomplished with a combination of 4mg of Versed and 50mcg of Fentanyl was administered by the RN after DO order, titrated to patient comfort during the course of the procedure while the patient remained responsive to all verbal commands. After obtaining informed consent, denial of pertinent drug allergies, as well as being made aware of the potential risks of bleeding, infection, spinal cord trauma, paralysis, temporary and permanent nerve damage, seizure, stroke, and possible , the patient was brought to the fluoroscopy suite and positioned prone on the fluoroscopy table. The lumbar region was prepped with Betadine and covered with a fenestrated drape in the usual sterile fashion. Appropriate monitors applied including pulse oximeter, pulse, and blood pressure for regular monitoring throughout the procedure. After local infiltration using 1% lidocaine, under fluoroscopic guidance, a 10- cm RF insulated needle with a 10-mm active tip was positioned parallel to the junction of the right sacral ala and the superior articulating process where the S1 dorsal ramus resides. Needle placement was confirmed with sensory stimulation at 50 Hz, with motor stimulation of .5v on the right which produced local stimulation without radicular component. The stimulation was then increased to 2v with, once again, only local multifidus stimulation without radicular component. This was then followed by two discreet lesions performed at 80 degrees Celsius for 90 seconds each. The needle was then removed and the identical procedure was performed along the length of the right L5 medial branch with motor stimulation at .7v on the right. The identical procedure was once again performed along the length of the right L4 medial branch with motor stimulation of .5v on the right. The patient tolerated the procedure well without signs or symptoms of complications prior to transfer to the recovery area continued monitoring without incident. The patient was then transferred to the recovery area where they were observed for an appropriate period of time after the injection. The patient was then transferred to the recovery area where they were observed for an appropriate period of time after the injection. The patient reported a VAS score of 8 prior to the procedure and a post- procedure VAS of 0. POST OP INSTRUCTIONS The patient was provided a Pain Log to continue to record the patient's response to the target-specific procedure prior to the patient's follow-up visit with the referring physician. Additionally, specific post-injection care instructions and a contact number to our office were provided if concerns arise regarding possible complications associated with the procedure are suspected.
== END 2020-11-29 12:59 | disposition home or self-care (01) ==
LOC: RAD 10:47
PROVIDERS: PCP Physician Assistant; Referring Provider Physical Medicine & Rehabilitation; Visit Provider Physical Medicine & Rehabilitation
DX: M47.816 Spondylosis without myelopathy or radiculopathy, lumbar region (principal); M47.817 Spondylosis without myelopathy or radiculopathy, lumbosacral region
CPT/HCPCS: 64635; 64636; 99152; J2250; J3010

== ENCOUNTER 2020-12-09 11:22 | Emergency (ER) | payer OTHER, SELFPAY ==
[2020-12-09] VITALS (14 sets, daily range): BP systolic 120–186; BP diastolic 62–130; PULSE 78–98; RESP 16–43; TEMP 36.1; O2SAT 93–98; BMI 22.3
--- NOTE | 2020-12-09 11:34 | DI.RAD.S_ITS ---
PROCEDURE: XR CHEST 1V INDICATIONS: shortness of breath TECHNIQUE: One view of the chest was acquired. COMPARISON: None. FINDINGS: Surgical changes and devices: None. Lungs and pleura: Lungs are clear. No pleural effusions or pneumothorax. Mild hyperinflation and chronic interstitial changes. Mediastinum: Mediastinal contours appear normal. Heart size is normal. Atherosclerotic vascular calcification noted in the aortic arch. Bones and chest wall: No suspicious bony lesions. Overlying soft tissues appear unremarkable. IMPRESSION: Mild hyperinflation and chronic interstitial changes. Aortic atherosclerosis. Approved by: Ian Isidro M.D. on 12/09/2020 at 11:25
--- NOTE | 2020-12-09 11:37 | ED_ITS ---
HPI - SOB/Dyspnea General Chief Complaint: Shortness of Breath/Dyspnea Stated Complaint: short of breath/history of lung cancer Time Seen by Provider: 12/09/20 11:26 Source: patient Mode of arrival: Ambulatory Limitations: no limitations History of Present Illness HPI Narrative: The patient is a 65-year-old female history of COPD presenting with increasing shortness of breath last 2 days. She has been using her nebulizer at home and has not really helped. She feels as though she has thrush from all of her inhalers. She also states that she has productive sputum of yellow color. She also has a history all lung cancer. She denies any fever or chills or chest pain. She has no the peripheral edema, no orthopnea Related Data Home Medications Medication Instructions Recorded Confirmed hydrochlorothiazide 25 mg tablet 25 mg PO DAILY 03/24/18 11/26/20 losartan 50 mg tablet 50 mg PO DAILY 03/24/18 11/26/20 albuterol sulfate 90 mcg/actuation 1 - 2 puff INHALATION Q4H PRN 04/23/18 11/26/20 aerosol inhaler citalopram 20 mg tablet 20 mg PO DAILY 05/09/19 11/26/20 lorazepam 1 mg tablet (Ativan) 1 mg PO TID PRN 05/09/19 11/26/20 zolpidem 10 mg tablet 5 mg PO BEDTIME PRN tab 09/19/19 11/26/20 beclomethasone dipropionate 40 2 inh INHALATION BID 03/15/20 11/26/20 mcg/actuation HFA breath activated aerosol (Qvar RediHaler) biotin 1 cap PO DAILY 03/21/20 11/26/20 Previous Rx's Medication Instructions Recorded cyclobenzaprine 10 mg tablet 10 mg PO BID PRN #60 tab 08/27/20 tramadol 50 mg tablet 50 mg PO BID PRN #60 tab 10/26/20 celecoxib 200 mg capsule See Rx Instructions .ROUTE 11/23/20 .COMPLEX #30 cap doxycycline hyclate 100 mg capsule 100 mg PO BID #20 cap 12/09/20 prednisone 20 mg tablet 40 mg PO DAILY #10 tab 12/09/20 Allergies Allergy/AdvReac Type Severity Reaction Status Date / Time No Known Drug Allergies Allergy Verified 11/26/20 08:12 Review of Systems Review of Systems Narrative: GENERAL: Denies chills, fatigue, malaise, fever, sweats, travel HEENT: Denies sinus pain, ear pain, sore throat, difficulty swallowing, neck pain RESPIRATORY: See HPI CARDIOVASCULAR: Denies chest pain, palpitations, orthopnea, edema GASTROINTESTINAL: Denies nausea, vomiting, abdominal pain, diarrhea, constipation, melena. : Denies dysuria, frequency, incontinence, hematuria, urinary retention, flank pain. MUSCULOSKELETAL: Denies weakness, joint pain, or bony pain SKIN: No rash, no erythema, no pruritus NEUROLOGIC: Denies weakness, dizziness, headache, numbness, change in speech, confusion PSYCHIATRIC: No concerning psychosocial issues. 12 point review of systems is negative except for those stated above and HPI Patient History Medical History (Updated 12/09/20 @ 15:01 by Anjali Farley DO) Cholelithiasis COPD (chronic obstructive pulmonary disease) Facet arthropathy, lumbar HTN (hypertension) Lumbar stenosis Pulmonary nodule Sacral back pain Scoliosis Scoliosis due to degenerative disease of spine in adult patient Surgical History (Updated 11/26/20 @ 08:32 by Tony Delaney DO) History of History of elbow surgery History of lung surgery Hx of foot surgery Family History Father Hypertension Diabetes mellitus Mother Hypertension Other No pertinent family history Social History marital status: household members: spouse occupational status: employed Smoking Status: Former smoker alcohol intake: never substance use type: does not use Smoking Status: Former smoker alcohol intake frequency: holidays/special occasions only Substance Use Type: does not use Exam Initial Vital Signs Initial Vital Signs: Vital Signs Temperature 97 F L 12/09/20 11:31 Pulse Rate 98 H 12/09/20 11:31 Respiratory Rate 26 H 12/09/20 11:31 Pulse Oximetry 98 12/09/20 11:31 GENERAL: Thin 65-year-old female appears in mild respiratory distress HEENT: Head atraumatic,EOMI, pupils reactive, face symmetric, [moist] mucous membranes CARDIOVASCULAR: Regular rate and rhythm without murmurs, rubs or gallops. RESPIRATORY: Decreased breath sounds no significant wheezing,mild conversational dyspnea ABDOMEN: Soft, nontender. Normoactive bowel sounds all 4 quadrants. No guarding or rebound. EXTREMITIES: Normal range of motion, no clubbing or edema. Neurovascularly intact NEUROLOGICAL: Alert and oriented x4.Normal gait and speech. SKIN: Warm, dry, no laceration, no petechiae, no rashes or lesions. Course Orders Ordered: Discontinued Medications Albuterol (Albuterol Hfa Mdi 60 Puff/8 Gm Inhaler) 4 puff INH NOW ONE Stop: 12/09/20 11:41 Last Admin: 12/09/20 11:41 Dose: 4 puff Documented by: EL Albuterol/Ipratropium (Albuterol/Ipratropium 3 Ml Ampul) 3 ml INH NOW ONE Stop: 12/09/20 12:12 Last Admin: 12/09/20 12:13 Dose: 3 ml Documented by: EL Methylprednisolone (Methylprednisolone 125 Mg/2 Ml Vial) 125 mg IV NOW ONE Stop: 12/09/20 12:41 Last Admin: 12/09/20 12:45 Dose: 125 mg Documented by: PRINCE Vital Signs Vital signs: Vital Signs - 8 hr 12/09/20 11:31 12/09/20 11:33 12/09/20 11:35 Temperature 97 F L Pulse Rate 96 H 97 H 97 H Respiratory Rate 26 H 30 H 25 H Blood Pressure 172/130 H 148/103 H Pulse Oximetry 96 93 93 12/09/20 12:00 12/09/20 12:05 12/09/20 12:15 Temperature Pulse Rate 82 83 80 Respiratory Rate 18 20 16 Blood Pressure 130/84 Pulse Oximetry 97 96 96 12/09/20 12:30 12/09/20 13:00 12/09/20 13:30 Temperature Pulse Rate 79 78 82 Respiratory Rate 24 17 22 Blood Pressure 135/74 136/71 120/67 Pulse Oximetry 95 96 96 12/09/20 14:00 Temperature Pulse Rate 80 Respiratory Rate 22 Blood Pressure 123/68 Pulse Oximetry 96 MDM - SOB/Dyspnea Lab Data Result diagrams: 12/09/20 11:30 12/09/20 11:30 Labs: Lab Results 12/09/20 12/09/20 12/09/20 Range/Units 11:30 11:30 11:30 WBC 10.6 (4.5-11.0) X10^3/uL RBC 5.29 H (4.0-5.2) X10^6/uL Hgb 15.7 (12.0-16.0) g/dL Hct 46.7 H (36-46) % MCV 88.3 (80-100) fL MCH 29.8 (26-34) PG MCHC 33.7 (30-36) % RDW 13.7 (11.6-14.8) % Plt Count 260 (150-400) X10^3/uL Neut % (Auto) 70.3 (50-75) % Lymph % (Auto) 17.3 L (25-40) % [place] % (Auto) 7.9 (3-14) % Eos % (Auto) 3.8 (2-4) % Baso % (Auto) 0.7 (0-2) % Neut # (Auto) 7500 H (8643-8822) /uL Lymph # (Auto) 1800 (1081-4692) /uL [place] # (Auto) 800 (0-900) /uL Eos # (Auto) 400 (0-450) /uL Baso # (Auto) 100 (0-100) /uL Sodium 141 (137-145) mmol/L Potassium 4.1 (3.4-5.1) mmol/L Chloride 99 (98-107) mmol/L Carbon Dioxide 33 H (22-32) mmol/L BUN 19 H (7-17) mg/dL Creatinine 0.57 (0.52-1.04) mg/dL Estimated GFR > 60.0 (>60) mL/min BUN/Creatinine Ratio 33.3 H (6-22) Glucose 111 H (80-110) mg/dL Lactate 1.8 (0.7-2.1) mmol/L Calcium 9.9 (8.4-10.2) mg/dL Total Bilirubin 0.7 (0.2-1.3) mg/dL AST 34 (14-36) IU/L ALT 34 (<35) IU/L Alkaline Phosphatase 113 (38-126) U/L Total Creatine Kinase (30-135) U/L CK-MB (CK-2) CK-MB (CK-2) Rel Index Troponin I (0.01-0.034) ng/mL NT-Pro-B Natriuret Pep (<125) pg/mL Total Protein 7.5 (6.3-8.2) g/dL Albumin 4.8 (3.5-5.0) g/dL Globulin 2.7 (1.7-4.1) g/dL Albumin/Globulin Ratio 1.8 (1.0-2.8) Procalcitonin (<0.5) ng/mL SARS-CoV-2 (PCR) (Negative) 12/09/20 12/09/20 12/09/20 Range/Units 11:30 11:30 11:35 WBC (4.5-11.0) X10^3/uL RBC (4.0-5.2) X10^6/uL Hgb (12.0-16.0) g/dL Hct (36-46) % MCV (80-100) fL MCH (26-34) PG MCHC (30-36) % RDW (11.6-14.8) % Plt Count (150-400) X10^3/uL Neut % (Auto) (50-75) % Lymph % (Auto) (25-40) % [place] % (Auto) (3-14) % Eos % (Auto) (2-4) % Baso % (Auto) (0-2) % Neut # (Auto) (4082-0238) /uL Lymph # (Auto) (1043-3076) /uL [place] # (Auto) (0-900) /uL Eos # (Auto) (0-450) /uL Baso # (Auto) (0-100) /uL Sodium (137-145) mmol/L Potassium (3.4-5.1) mmol/L Chloride (98-107) mmol/L Carbon Dioxide (22-32) mmol/L BUN (7-17) mg/dL Creatinine (0.52-1.04) mg/dL Estimated GFR (>60) mL/min BUN/Creatinine Ratio (6-22) Glucose (80-110) mg/dL Lactate (0.7-2.1) mmol/L Calcium (8.4-10.2) mg/dL Total Bilirubin (0.2-1.3) mg/dL AST (14-36) IU/L ALT (<35) IU/L Alkaline Phosphatase (38-126) U/L Total Creatine Kinase 60 (30-135) U/L CK-MB (CK-2) TNP CK-MB (CK-2) Rel Index TNP Troponin I < 0.012 (0.01-0.034) ng/mL NT-Pro-B Natriuret Pep 1270 H (<125) pg/mL Total Protein (6.3-8.2) g/dL Albumin (3.5-5.0) g/dL Globulin (1.7-4.1) g/dL Albumin/Globulin Ratio (1.0-2.8) Procalcitonin 0.07 (<0.5) ng/mL SARS-CoV-2 (PCR) Negative (Negative) Imaging Data Chest x-ray: Radiologist's Impression: PROCEDURE:? XR CHEST 1V ? INDICATIONS:? shortness of breath ? TECHNIQUE:? One view of the chest was acquired.? ? COMPARISON:? None. ? FINDINGS:? ? Surgical changes and devices:? None.? ? Lungs and pleura:? Lungs are clear.? No pleural effusions or pneumothorax.? Mild hyperinflation and chronic interstitial changes. ? Mediastinum:? Mediastinal contours appear normal.? Heart size is normal.? Atherosclerotic vascular calcification noted in the aortic arch. ? Bones and chest wall:? No suspicious bony lesions.? Overlying soft tissues appear unremarkable.? ? IMPRESSION:? Mild hyperinflation and chronic interstitial changes.? Aortic atherosclerosis. ? ? ? Approved by: Ian Isidro M.D. on 12/09/2020 at 11:25? ECG Data Interpretation: Normal sinus rhythm rate 87 PA interval 150 QRS 80 QTC 476 MDM Narrative Medical decision making narrative: Patient has history of COPD and lung cancer is presenting with increasing shortness of breath most consistent with COPD exacerbation. She is feeling significantly better after DuoNeb and steroids. BNP is noted to be elevated slightly at 12 70 but no pulmonary edema or vascular congestion or cardiomegaly noted on x-ray. She has no peripheral edema or swelling either. At this time symptoms are more consistent with COPD exacerbation. She now really complained of chest pain troponin is negative. Will treat her with steroids and antibiotics. She is saying that she is coughing up more colored phlegm as well. Discharge Plan Departure Patient Disposition: Home Clinical Impression: Acute exacerbation of chronic obstructive pulmonary disease (COPD) Instructions: Chronic Obstructive Pulmonary Disease Activity Restrictions/Additional Instructions: *You have been diagnosed with COPD exacerbation *What to do: At this time no evidence of pneumonia but probable COPD exacerbation. You may also need further evaluation of your heart with an echocardiogram *Continue to take medications as directed--> SENT TO [facility] Doxycycline 100 mg twice a day for 7 days Prednisone 40 mg once a day for 5 days *Follow up with your primary care provider in 2-3 days *Return to ER if you should have increasing shortness of breath, chest pain or any new, worsening or concerning symptoms Prescriptions: New doxycycline hyclate 100 mg capsule 100 mg PO BID Qty: 20 RF: 0 prednisone 20 mg tablet 40 mg PO DAILY Qty: 10 RF: 0 No Action cyclobenzaprine 10 mg tablet 10 mg PO BID PRN (Reason: muscle spasm) Qty: 60 RF: 2 tramadol 50 mg tablet 50 mg PO BID PRN (Reason: pain) Qty: 60 RF: 1 celecoxib 200 mg capsule See Rx Instructions .ROUTE .COMPLEX Qty: 30 RF: 3 Qvar RediHaler 40 mcg/actuation HFA aerosol breath activated 2 inh inhalation BID RF: 0 biotin 1 cap PO DAILY RF: 0 losartan 50 mg Tablet 50 mg PO DAILY RF: 0 hydrochlorothiazide 25 mg Tablet 25 mg PO DAILY RF: 0 albuterol sulfate 90 mcg/actuation HFA aerosol inhaler 1 - 2 puff Inhalation Q4H PRN (Reason: Wheezing) RF: 0 lorazepam [Ativan] 1 mg tablet 1 mg PO TID PRN (Reason: Anxiety) RF: 0 citalopram 20 mg tablet 20 mg PO DAILY RF: 0 zolpidem 10 mg tablet 5 mg PO BEDTIME PRN (Reason: Sleep) RF: 0 Referrals: Elenita Peter PA-C [Primary Care Provider] -
[2020-12-09 11:39] LABS: Add Manual Diff / Slide Review NO; Basophils Absolute Auto 100 /uL (0-100); Basophils Percent Auto 0.7 % (0-2); Eosinophils Absolute Auto 400 /uL (0-450); Eosinophils Percent Auto 3.8 % (2-4); Hematocrit 46.7 % (36-46); Hemoglobin 15.7 g/dL (12.0-16.0); Lymphocytes Absolute Auto 1800 /uL (1100-4500); Lymphocytes Percent Auto 17.3 % (25-40); Mean Corpuscular HGB Conc 33.7 % (30-36); Mean Corpuscular Hemoglobin 29.8 PG (26-34); Mean Corpuscular Volume 88.3 fL (80-100); Monocytes Absolute Auto 800 /uL (0-900); Monocytes Percent Auto 7.9 % (3-14); Neutrophils Absolute Auto 7500 /uL (1500-7000); Neutrophils Percent Auto 70.3 % (50-75); Platelet Count 260 X10^3/uL (150-400); Red Blood Cell Count 5.29 X10^6/uL (4.0-5.2); Red Cell Distribution Width 13.7 % (11.6-14.8); White Blood Cell Count 10.6 X10^3/uL (4.5-11.0)
[2020-12-09] MEDS: ALBUTEROL HFA MDI 60 PUFF/8 GM INHALER INH (11:41)
[2020-12-09 11:52] LABS: Creatine Kinase 60 U/L (30-135)
[2020-12-09 11:53] LABS: Lactate (Lactic Acid) 1.8 mmol/L (0.7-2.1)
[2020-12-09 11:57] LABS: Alanine Aminotransferase 34 IU/L (<35); Albumin 4.8 g/dL (3.5-5.0); Albumin Globulin Ratio 1.8 (1.0-2.8); Alkaline Phosphatase 113 U/L (38-126); Aspartate Aminotransferase 34 IU/L (14-36); BUN Creatinine Ratio 33.3 (6-22); Bilirubin Total 0.7 mg/dL (0.2-1.3); Blood Urea Nitrogen 19 mg/dL (7-17); Calcium 9.9 mg/dL (8.4-10.2); Carbon Dioxide 33 mmol/L (22-32); Chloride 99 mmol/L (98-107); Estimated Glomerular Filt Rate > 60.0 mL/min (>60); Globulin 2.7 g/dL (1.7-4.1); Glucose 111 mg/dL (80-110); HEMOLYSIS < 15 (0-50); Potassium 4.1 mmol/L (3.4-5.1); Sodium 141 mmol/L (137-145); Total Protein 7.5 g/dL (6.3-8.2)
[2020-12-09 11:57] LABS: COVID19 -Nasal RAPID Negative (Negative)
[2020-12-09 12:04] LABS: NT-proBNP (BNP-Adult 18+) 1270 pg/mL (<125); Troponin I < 0.012 ng/mL (0.01-0.034)
[2020-12-09 12:10] LABS: Procalcitonin 0.07 ng/mL (<0.5)
[2020-12-09] MEDS: ALBUTEROL/IPRATROPIUM 3 ML AMPUL INH (12:13)
[2020-12-09] MEDS: methylPREDNISolone 125 MG/2 ML VIAL IV (12:45)
[2020-12-14 21:53] LABS: Cholesterol 278 mg/dL (140-199); HDL Cholesterol 64 mg/dL (40-60); LDL Cholesterol Calculated 165 mg/dL (<100); Triglycerides 245 mg/dL (35-150)
[2020-12-15 15:10] LABS: HIV 1 & 2 Ab/Ag 4th Gen Combo NEGATIVE (NEGATIVE)
[2020-12-15 16:06] LABS: Hep C Virus Ab w/Reflex Quant NEGATIVE s/c (NEGATIVE)
== END 2020-12-09 15:19 | disposition home or self-care (01) ==
PROVIDERS: Emergency Provider Emergency Medicine; PCP Physician Assistant
DX: J44.1 Chronic obstructive pulmonary disease with (acute) exacerbation (principal); Z20.822 Contact with and (suspected) exposure to COVID-19; R79.89 Other specified abnormal findings of blood chemistry
CPT/HCPCS: 36415; 71045; 80053; 80061; 82550; 83605; 83880; 84145; 84484; 85025; 86803; 87389; 87635; 93005; 94640; 96374; 99284; C9803; A9270; J2930

== ENCOUNTER → 2021-01-08 07:46 | Outpatient (CLI) | payer OTHER, SELFPAY ==
--- NOTE | 2021-01-08 | DI.ECHO.S_ITS ---
[facility]---------+ [facility] +---------+ : : [address] : : : : [id number] : : : : Phone: [phone]+ Echocardiogram Report + + :Name: LUIS FERNANDO VALDEZ Study Date: 01/08/2021 Height: 65 in : :[facility] ReadingLocation: Weight: 130 lb : : Gender: Female BSA: 1.6 m2 : :: 1955 Age: 65 yrs BP: 156/77 mmHg: :Reason For Study: SHORTNESS OF BREATH : :Ordering Physician: DARINEL, : :MIKE Performed By: Ivett Ruiz : :Referring: MIKE TENA : + + Interpretation Summary Normal sinus rhythm. Severe asymmetric LVH; interventicular septum measures 1.8 cm. Normal LV size and LV systolic function. EF is estimated at 60-65%. Stage I diastolic dysfunction. Normal chamber sizes. No significant valvular abnormalities. No LVOT obstruction. No prior study available for comparison. Recommend cardiology consult. Procedure: A two-dimensional transthoracic echocardiogram with color flow and Doppler was performed. The study quality was technically adequate. There is no prior echocardiogram noted for this patient. The patient was in sinus rhythm with heart rates between 75-87 bpm during the exam. Left Ventricle: There is moderate asymmetric left ventricular hypertrophy. The left ventricular cavity is small. The ejection fraction is estimated to be 60-65%. Right Ventricle: The right ventricle is normal in size and function. Atria: Both atria are normal in size. There is no Doppler evidence for an interatrial shunt. Mitral Valve: There is mild mitral annular calcification. There is mild mitral regurgitation. Aortic Valve: The aortic valve is trileaflet. The aortic valve opens well. There is no aortic valve stenosis. No aortic regurgitation is present. Tricuspid Valve: The tricuspid valve is normal in structure and function. There is trace tricuspid regurgitation. Pulmonary artery pressures cannot be estimated because of the lack of a measurable TR jet velocity but the IVC suggests a CVP of around 3 mmHg. Pulmonic Valve: The pulmonic valve is not well visualized. There is no pulmonic valvular regurgitation. Great Vessels: The aortic root is normal size. The dimensions of the ascending aorta are normal. The IVC is of normal diameter and collapses greater than 50% with a sniff. This suggests a low right atrial pressure of 3 mm Hg. Pericardium/ Pleura There is no pericardial effusion. There is no pleural effusion. MMode/2D Measurements & Calculations LVIDd: 3.3 cm LVOT diam: 2.0 cm LVIDs: 2.2 cm Ao root diam: 3.1 cm FS: 33.8 % asc Aorta Diam: 3.2 cm IVSd: 1.8 cm Ao Arch Diam (Prox Trans): 2.8 cm LVPWd: 1.0 cm LV ramos. diameter/BSA (cm/m^2): 2.0 LV sys. diameter/BSA (cm/m^2): 1.3 LA A2 area: 16.5 cm2 RA long axis: 3.4 cm LA A4 area: 12.3 cm2 RA area: 7.9 cm2 LA length (vol): 4.1 cm RA vol: 15.6 ml LA vol: 42.0 ml RA : 9.5 ml/m2 LA vol index: 25.5 ml/m2 IVC diam: 0.89 cm RVD1 (basal): 3.0 cm TAPSE: 1.8 cm Doppler Measurements & Calculations Ao V2 max: 116.1 cm/sec LVOT Max Fernando: 92.5 cm/sec Ao V2 mean: 76.5 cm/sec LV V1 max P.4 mmHg Ao max P.4 mmHg LV V1 VTI: 16.9 cm Ao mean P.7 mmHg CHRIS(I,D): 2.5 cm2 Ao V2 VTI: 21.0 cm CHRIS(V,D): 2.4 cm2 sev ratio: 0.81 CHRIS indexed to BSA (cm^2/m^2): 1.5 MV E max fernando: 72.4 cm/sec PA V2 max: 116.0 cm/sec MV A max fernando: 92.1 cm/sec PA V2 mean: 77.3 cm/sec MV E/A: 0.79 PA mean P.7 mmHg Med Peak E' Fernando: 4.4 cm/sec PA pr(Accel): 36.2 mmHg E/E' med: 16.6 Lat Peak E' Fernando: 6.1 cm/sec E/E' lat: 11.8 E/e' average: 14.2 MV dec time: 0.20 sec SV(LVOT): 51.9 ml Electronically signed by: Chandrika Gorman M.D. on Reading Physician:01/08/2021 11:40 PM
== END ==
PROVIDERS: PCP Physician Assistant; Referring Provider Physician Assistant; Visit Provider Physician Assistant
DX: I34.0 Nonrheumatic mitral (valve) insufficiency (principal); R06.02 Shortness of breath
CPT/HCPCS: 93306

== ENCOUNTER 2021-02-10 16:56 | Emergency (ER) | payer OTHER, SELFPAY ==
[2021-02-10] VITALS (17 sets, daily range): BP systolic 138–189; BP diastolic 77–104; PULSE 75–95; RESP 16–28; TEMP 36.1; O2SAT 92–97; BMI 22.7
--- NOTE | 2021-02-10 17:41 | DI.RAD.S_ITS ---
PROCEDURE: XR CHEST 2V INDICATIONS: shortness of breath TECHNIQUE: 2 views of the chest were acquired. COMPARISON: Outside Facility, RG, CT THORAX/ABDOMEN/PELVIS WITH CONTRAST, 02/18/2020, 9:07. [facility], CR, XR CHEST 1V, 12/09/2020, 11:39. FINDINGS: Surgical changes and devices: Remote partial left pulmonary resection remote partial right pulmonary resection. Lungs and pleura: Question collapse of the left upper lobe. This is not definite. No pleural effusions or pneumothorax. Mediastinum: Mediastinal contours are normal. Heart size is normal. Bones and chest wall: No suspicious bony abnormalities. Soft tissues appear unremarkable. IMPRESSION: Evidence of bilateral partial remote pulmonary resections. No evidence acute pulmonary process. Dictated by: Jaime Mauricio M.D. on 02/10/2021 at 18:30 Approved by: Jaime Mauricio M.D. on 02/10/2021 at 18:32
[2021-02-10 18:00] LABS: Add Manual Diff / Slide Review NO; Basophils Absolute Auto 100 /uL (0-100); Basophils Percent Auto 0.8 % (0-2); Eosinophils Absolute Auto 400 /uL (0-450); Eosinophils Percent Auto 4.7 % (2-4); Hematocrit 41.1 % (36-46); Hemoglobin 13.9 g/dL (12.0-16.0); Lymphocytes Absolute Auto 1200 /uL (1100-4500); Lymphocytes Percent Auto 13.5 % (25-40); Mean Corpuscular HGB Conc 33.7 % (30-36); Mean Corpuscular Hemoglobin 29.7 PG (26-34); Mean Corpuscular Volume 88.1 fL (80-100); Monocytes Absolute Auto 600 /uL (0-900); Monocytes Percent Auto 7.2 % (3-14); Neutrophils Absolute Auto 6300 /uL (1500-7000); Neutrophils Percent Auto 73.8 % (50-75); Platelet Count 217 X10^3/uL (150-400); Red Blood Cell Count 4.66 X10^6/uL (4.0-5.2); Red Cell Distribution Width 14.7 % (11.6-14.8); White Blood Cell Count 8.5 X10^3/uL (4.5-11.0)
[2021-02-10 18:12] LABS: Lactate (Lactic Acid) 1.3 mmol/L (0.7-2.1)
[2021-02-10 18:13] LABS: COVID19 -Nasal RAPID Negative (Negative)
[2021-02-10 18:14] LABS: Alanine Aminotransferase 49 IU/L (<35); Albumin 4.3 g/dL (3.5-5.0); Albumin Globulin Ratio 1.5 (1.0-2.8); Alkaline Phosphatase 97 U/L (38-126); Aspartate Aminotransferase 53 IU/L (14-36); BUN Creatinine Ratio 27.7 (6-22); Bilirubin Total 0.6 mg/dL (0.2-1.3); Blood Urea Nitrogen 23 mg/dL (7-17); Calcium 9.2 mg/dL (8.4-10.2); Carbon Dioxide 28 mmol/L (22-32); Chloride 105 mmol/L (98-107); Estimated Glomerular Filt Rate > 60.0 mL/min (>60); Globulin 2.9 g/dL (1.7-4.1); Glucose 104 mg/dL (80-110); HEMOLYSIS < 15 (0-50); Potassium 4.2 mmol/L (3.4-5.1); Sodium 140 mmol/L (137-145); Total Protein 7.2 g/dL (6.3-8.2)
[2021-02-10 18:40] LABS: D Dimer 858 ng/mL (<230)
[2021-02-10 18:41] LABS: C-Reactive Protein Quant 1.1 mg/dL (<1.0)
[2021-02-10 18:46] LABS: Erythrocyte Sedimentation Rate 25 MM/HR (0-20)
--- NOTE | 2021-02-10 19:33 | DI.CT.S_ITS ---
PROCEDURE: CT ANGIO CHEST PE PROTOCOL INDICATIONS: significant SOB, critical Dimer, hx CA, prior COVID TECHNIQUE: After the administration of intravenous contrast, 2 mm thick sections acquired from the pulmonary apices to the posterior costophrenic angles. 3-dimensional maximum intensity projection (MIP) coronal and sagittal reformats were then acquired through the thorax. For radiation dose reduction, the following was used: automated exposure control, adjustment of mA and/or kV according to patient size. COMPARISON: [facility], CR, XR CHEST 2V, 02/10/2021, 17:35. [facility], CT, CT CHEST WO CON, 09/05/2019, 11:11. FINDINGS: Image quality: Excellent. Pulmonary arteries: Pulmonary arteries are normal in size, and demonstrate no intraluminal filling defects to suggest central pulmonary embolism. Lungs and pleura: Lungs are clear. There is scarring present in the right lung. There is evidence of remote partial bilateral pulmonary resections. No pleural effusions or pneumothorax. Central and peripheral airways are patent. Mediastinum: Heart size is normal, without pericardial effusion. Severe coronary artery calcifications. Relative hypertrophy of the left ventricular wall muscle. Prominent left atrium. No mediastinal or hilar adenopathy. Thoracic aorta is normal in caliber and enhancement. Esophagus is normal in caliber, without hiatal hernia. Bones and chest wall: No suspicious bony lesions. Ribs and thoracic spine appear intact throughout. Thyroid gland is unremarkable as visualized. No axillary or supraclavicular adenopathy. Abdomen: Visualized upper abdominal solid organs appear normal in the early arterial phase of enhancement. There is chronic occlusion of the origin of the celiac. The SMA is widely patent. There is a moderate proximal right renal artery stenosis. There is mild proximal main left renal artery stenotic disease. IMPRESSION: 1. No evidence acute pulmonary emboli. 2. Remote bilateral partial pulmonary resections. 3. Severe coronary artery disease. 4. Left ventricular muscular hypertrophy. 5. Chronic occlusion of the celiac. Widely patent SMA. 6. Moderate right renal artery stenosis, mild left renal artery stenosis. Dictated by: Jaime Mauricio M.D. on 02/10/2021 at 20:01 Approved by: Jaime Mauricio M.D. on 02/10/2021 at 20:07
[2021-02-10 20:59] LABS: Creatine Kinase 55 U/L (30-135)
[2021-02-10 21:12] LABS: NT-proBNP (BNP-Adult 18+) 495 pg/mL (<125); Troponin I < 0.012 ng/mL (0.01-0.034)
--- NOTE | 2021-02-11 03:40 | ED_ITS ---
HPI - SOB/Dyspnea General Chief Complaint: Shortness of Breath/Dyspnea Stated Complaint: Hx of COVID 3wks ago/sob x3 days Time Seen by Provider: 02/10/21 18:02 Source: patient Mode of arrival: Family Vehicle Limitations: no limitations History of Present Illness HPI Narrative: 65-year-old female former smoker with history of COPD, lung cancer, CHF presents with family in the chief complaint of ongoing shortness of breath with exertion for the past few weeks. She states that ever since having COVID pneumonia about a month ago she has not completely rebounded and is having difficulty breathing with exertion. She denies any chest pain and is not dizzy nor weak or lightheaded. She has had no nausea, vomiting or diarrhea. She has no fever or chills. She denies any significant change in medications or dietary change. She has had no significant weight gain. She denies missing any doses of her Lasix, and states she is taking only 20 mg daily. She has had no recent travel and has no complaint of lower extremity pain or swelling Related Data Home Medications Medication Instructions Recorded Confirmed hydrochlorothiazide 25 mg tablet 25 mg PO DAILY 03/24/18 11/26/20 losartan 50 mg tablet 50 mg PO DAILY 03/24/18 11/26/20 albuterol sulfate 90 mcg/actuation 1 - 2 puff INHALATION Q4H PRN 04/23/18 11/26/20 aerosol inhaler citalopram 20 mg tablet 20 mg PO DAILY 05/09/19 11/26/20 lorazepam 1 mg tablet (Ativan) 1 mg PO TID PRN 05/09/19 11/26/20 zolpidem 10 mg tablet 5 mg PO BEDTIME PRN tab 09/19/19 11/26/20 beclomethasone dipropionate 40 2 inh INHALATION BID 03/15/20 11/26/20 mcg/actuation HFA breath activated aerosol (Qvar RediHaler) biotin 1 cap PO DAILY 03/21/20 11/26/20 Previous Rx's Medication Instructions Recorded cyclobenzaprine 10 mg tablet 10 mg PO BID PRN #60 tab 08/27/20 tramadol 50 mg tablet 50 mg PO BID PRN #60 tab 10/26/20 celecoxib 200 mg capsule See Rx Instructions .ROUTE 11/23/20 .COMPLEX #30 cap doxycycline hyclate 100 mg capsule 100 mg PO BID #20 cap 12/09/20 prednisone 20 mg tablet 40 mg PO DAILY #10 tab 12/09/20 Allergies Allergy/AdvReac Type Severity Reaction Status Date / Time No Known Drug Allergies Allergy Verified 11/26/20 08:12 Review of Systems Review of Systems Narrative: GENERAL: Denies chills, fatigue, malaise, fever, sweats. HEENT: Denies sinus pain, ear pain, sore throat, difficulty swallowing, dizziness. RESPIRATORY: See HPI CARDIOVASCULAR: Denies chest pain, palpitations, orthopnea, edema, GASTROINTESTINAL: Denies nausea, vomiting, abdominal pain, diarrhea, constipation, melena. : Denies dysuria, frequency, incontinence, hematuria, urinary retention. MUSCULOSKELETAL: denies weakness, joint pain, or bony pain SKIN: Denies rash, skin lesions, or other NEUROLOGIC: Denies weakness, headache, numbness, change in speech, confusion, seizures, incoordination. PSYCHIATRIC: No concerning psychosocial issues. 12 point review of systems is negative except for those stated above Patient History Medical History Cholelithiasis COPD (chronic obstructive pulmonary disease) Facet arthropathy, lumbar HTN (hypertension) Lumbar stenosis Pulmonary nodule Sacral back pain Scoliosis Scoliosis due to degenerative disease of spine in adult patient Surgical History History of History of elbow surgery History of lung surgery Hx of foot surgery Family History Father Hypertension Diabetes mellitus Mother Hypertension Other No pertinent family history Social History marital status: household members: spouse occupational status: employed Smoking Status: Former smoker alcohol intake: never substance use type: does not use Smoking Status: Former smoker alcohol intake frequency: holidays/special occasions only Substance Use Type: does not use Exam Narrative Exam Narrative: GENERAL: [65 year old patient appears stated age. Well-developed patient, in mild distress. HEAD: Atraumatic. Normocephalic. EYES: Pupils equal round and reactive. Extraocular motions intact. No scleral icterus. No injection or drainage. ENT: Nose without bleeding, purulent drainage. Throat without erythema, tonsillar hypertrophy or exudate. Airway patent. NECK: Trachea midline. Non tender CARDIOVASCULAR: Regular rate and rhythm without murmurs, gallops, or rubs. RESPIRATORY: Decreased breath sounds throughout with prolonged expiratory phase, faint crackles in bilateral bases GASTROINTESTINAL: Abdomen soft, non-tender, nondistended. EXTREMITIES: No edema or joint tenderness. BACK: Nontender without deformity or crepitance. No flank tenderness. NEURO: AOx3. SKIN: No rash or erythema of visible areas Initial Vital Signs Initial Vital Signs: Vital Signs Pulse Rate 80 02/10/21 17:34 Pulse Oximetry 96 02/10/21 17:34 Course Orders Ordered: ED Orders 02/10/21 19:33 CT angio chest PE protocol Stat Vital Signs Vital signs: Vital Signs - 8 hr 02/10/21 19:45 02/10/21 20:00 02/10/21 20:30 Pulse Rate 89 78 78 Respiratory Rate Blood Pressure 189/88 H 176/84 H 172/84 H Pulse Oximetry 96 95 95 02/10/21 20:48 02/10/21 21:00 02/10/21 21:26 Pulse Rate 95 H 78 77 Respiratory Rate 28 H Blood Pressure 167/77 H Pulse Oximetry 92 95 94 02/10/21 21:30 02/10/21 22:00 Pulse Rate 77 75 Respiratory Rate Blood Pressure 163/79 H 150/84 H Pulse Oximetry 94 94 MDM - SOB/Dyspnea Lab Data Result diagrams: 02/10/21 17:47 02/10/21 17:47 Labs: Lab Results 02/10/21 02/10/21 02/10/21 Range/Units 17:36 17:47 17:47 WBC 8.5 (4.5-11.0) X10^3/uL RBC 4.66 (4.0-5.2) X10^6/uL Hgb 13.9 (12.0-16.0) g/dL Hct 41.1 (36-46) % MCV 88.1 (80-100) fL MCH 29.7 (26-34) PG MCHC 33.7 (30-36) % RDW 14.7 (11.6-14.8) % Plt Count 217 (150-400) X10^3/uL Neut % (Auto) 73.8 (50-75) % Lymph % (Auto) 13.5 L (25-40) % [place] % (Auto) 7.2 (3-14) % Eos % (Auto) 4.7 H (2-4) % Baso % (Auto) 0.8 (0-2) % Neut # (Auto) 6300 (6341-9007) /uL Lymph # (Auto) 1200 (0011-7641) /uL [place] # (Auto) 600 (0-900) /uL Eos # (Auto) 400 (0-450) /uL Baso # (Auto) 100 (0-100) /uL ESR (0-20) MM/HR D-Dimer (<230) ng/mL Sodium 140 (137-145) mmol/L Potassium 4.2 (3.4-5.1) mmol/L Chloride 105 (98-107) mmol/L Carbon Dioxide 28 (22-32) mmol/L BUN 23 H (7-17) mg/dL Creatinine 0.83 (0.52-1.04) mg/dL Estimated GFR > 60.0 (>60) mL/min BUN/Creatinine Ratio 27.7 H (6-22) Glucose 104 (80-110) mg/dL Lactate (0.7-2.1) mmol/L Calcium 9.2 (8.4-10.2) mg/dL Total Bilirubin 0.6 (0.2-1.3) mg/dL AST 53 H (14-36) IU/L ALT 49 H (<35) IU/L Alkaline Phosphatase 97 (38-126) U/L Total Creatine Kinase (30-135) U/L CK-MB (CK-2) CK-MB (CK-2) Rel Index Troponin I (0.01-0.034) ng/mL C-Reactive Protein (<1.0) mg/dL NT-Pro-B Natriuret Pep (<125) pg/mL Total Protein 7.2 (6.3-8.2) g/dL Albumin 4.3 (3.5-5.0) g/dL Globulin 2.9 (1.7-4.1) g/dL Albumin/Globulin Ratio 1.5 (1.0-2.8) SARS-CoV-2 (PCR) Negative (Negative) 02/10/21 02/10/21 02/10/21 Range/Units 17:47 17:47 17:47 WBC (4.5-11.0) X10^3/uL RBC (4.0-5.2) X10^6/uL Hgb (12.0-16.0) g/dL Hct (36-46) % MCV (80-100) fL MCH (26-34) PG MCHC (30-36) % RDW (11.6-14.8) % Plt Count (150-400) X10^3/uL Neut % (Auto) (50-75) % Lymph % (Auto) (25-40) % [place] % (Auto) (3-14) % Eos % (Auto) (2-4) % Baso % (Auto) (0-2) % Neut # (Auto) (0267-7111) /uL Lymph # (Auto) (0058-7001) /uL [place] # (Auto) (0-900) /uL Eos # (Auto) (0-450) /uL Baso # (Auto) (0-100) /uL ESR 25 H (0-20) MM/HR D-Dimer 858 H (<230) ng/mL Sodium (137-145) mmol/L Potassium (3.4-5.1) mmol/L Chloride (98-107) mmol/L Carbon Dioxide (22-32) mmol/L BUN (7-17) mg/dL Creatinine (0.52-1.04) mg/dL Estimated GFR (>60) mL/min BUN/Creatinine Ratio (6-22) Glucose (80-110) mg/dL Lactate 1.3 (0.7-2.1) mmol/L Calcium (8.4-10.2) mg/dL Total Bilirubin (0.2-1.3) mg/dL AST (14-36) IU/L ALT (<35) IU/L Alkaline Phosphatase (38-126) U/L Total Creatine Kinase (30-135) U/L CK-MB (CK-2) CK-MB (CK-2) Rel Index Troponin I (0.01-0.034) ng/mL C-Reactive Protein (<1.0) mg/dL NT-Pro-B Natriuret Pep (<125) pg/mL Total Protein (6.3-8.2) g/dL Albumin (3.5-5.0) g/dL Globulin (1.7-4.1) g/dL Albumin/Globulin Ratio (1.0-2.8) SARS-CoV-2 (PCR) (Negative) 02/10/21 02/10/21 Range/Units 17:47 17:47 WBC (4.5-11.0) X10^3/uL RBC (4.0-5.2) X10^6/uL Hgb (12.0-16.0) g/dL Hct (36-46) % MCV (80-100) fL MCH (26-34) PG MCHC (30-36) % RDW (11.6-14.8) % Plt Count (150-400) X10^3/uL Neut % (Auto) (50-75) % Lymph % (Auto) (25-40) % [place] % (Auto) (3-14) % Eos % (Auto) (2-4) % Baso % (Auto) (0-2) % Neut # (Auto) (6286-5664) /uL Lymph # (Auto) (5780-0258) /uL [place] # (Auto) (0-900) /uL Eos # (Auto) (0-450) /uL Baso # (Auto) (0-100) /uL ESR (0-20) MM/HR D-Dimer (<230) ng/mL Sodium (137-145) mmol/L Potassium (3.4-5.1) mmol/L Chloride (98-107) mmol/L Carbon Dioxide (22-32) mmol/L BUN (7-17) mg/dL Creatinine (0.52-1.04) mg/dL Estimated GFR (>60) mL/min BUN/Creatinine Ratio (6-22) Glucose (80-110) mg/dL Lactate (0.7-2.1) mmol/L Calcium (8.4-10.2) mg/dL Total Bilirubin (0.2-1.3) mg/dL AST (14-36) IU/L ALT (<35) IU/L Alkaline Phosphatase (38-126) U/L Total Creatine Kinase 55 (30-135) U/L CK-MB (CK-2) TNP CK-MB (CK-2) Rel Index TNP Troponin I < 0.012 (0.01-0.034) ng/mL C-Reactive Protein 1.1 H (<1.0) mg/dL NT-Pro-B Natriuret Pep 495 H (<125) pg/mL Total Protein (6.3-8.2) g/dL Albumin (3.5-5.0) g/dL Globulin (1.7-4.1) g/dL Albumin/Globulin Ratio (1.0-2.8) SARS-CoV-2 (PCR) (Negative) Imaging Data CT scan - chest: Radiologist's Impression: Launch?[place] [address] CT Scan Report Signed Patient: Martine Conde MR#: [id number] : 1955 Acct:[id number] Age/Sex: 65 / F Date of Service: 02/10/21 Loc: ED Accession Number: [id number] ?? Procedure: CT angio chest PE protocol Ordering Provider: Darian Young D.O. PROCEDURE:? CT ANGIO CHEST PE PROTOCOL ? INDICATIONS:? significant SOB, critical Dimer, hx CA, prior COVID ? TECHNIQUE:? After the administration of intravenous contrast, 2 mm thick sections acquired from the pulmonary apices to the posterior costophrenic angles.? 3-dimensional maximum in tensity projection (MIP) coronal and sagittal reformats were then acquired through the thorax.? For radiation dose reduction, the following was used:? automated exposure control, adjustment of mA and/or kV according to patient size.? ? COMPARISON:? [facility], CR, XR CHEST 2V, 02/10/2021, 17:35.? [facility], CT, CT CHEST WO CON, 09/05/2019, 11:11. ? FINDINGS:? Image quality:? Excellent.? ? Pulmonary arteries:? Pulmonary arteries are normal in size, and demonstrate no intraluminal filling defects to suggest central pulmonary embolism.? ? Lungs and pleura:? Lungs are clear.? There is scarring present in the right lung.? There is evidence of remote partial bilateral pulmonary resections.? No pleural effusions or pneumothorax.? Central and peripheral airways are patent.? ? Mediastinum:? Heart size is normal, without pericardial effusion.? Severe coronary artery calcifications.? Relative hypertrophy of the left ventricular wall muscle.? Prominent left atrium.? No mediastinal or hilar adenopathy.? Thoracic aorta is normal in caliber and enhancement.? Esophagus is normal in caliber, without hiatal hernia.? ? Bones and chest wall:? No suspicious bony lesions.? Ribs and thoracic spine appear intact throughout.? Thyroid gland is unremarkable as visualized.? No axillary or supraclavicular adenopathy.? ? Abdomen:? Visualized upper abdominal solid organs appear normal in the early arterial phase of enhancement.? There is chronic occlusion of the origin of the celiac.? The SMA is widely patent.? There is a moderate proximal right renal artery stenosis.? There is mild proximal main left renal artery stenotic disease. ? IMPRESSION:? ? 1. No evidence acute pulmonary emboli. ? 2. Remote bilateral partial pulmonary resections. ? 3. Severe coronary artery disease. ? 4. Left ventricular muscular hypertrophy. ? 5. Chronic occlusion of the celiac.? Widely patent SMA. ? 6. Moderate right renal artery stenosis, mild left renal artery stenosis.? ? ? Dictated by: Jaime Mauricio M.D. on 02/10/2021 at 20:01 ? ? Approved by: Jaime Mauricio M.D. on 02/10/2021 at 20:07 ? MDM Narrative Medical decision making narrative: Patient with reassuring history and physical. She complains of shortness of breath with exertion in the absence of any pain or other significant symptoms. She is well when resting. She demonstrates no significant work of breathing, she ambulates and pulse ox remains at least in the low 90s or above. She requires no supplemental oxygen in the department. Labs are largely very reass uring. She has an elevated D-dimer and therefore a CT angiogram was ordered, no PE, pleural effusion, pericardial effusion or pneumonia was noted. There is no indication that patient will require hospitalization. She is encouraged to follow-up closely with her primary care provider's office and increase her Lasix from 20 mg to 40 mg for each of the next few days. She is given return precautions and has had questions answered to her apparent satisfaction Discharge Plan Departure Patient Disposition: Home Clinical Impression: Acute CHF, Acute dyspnea Instructions: DI for Shortness of Breath Activity Restrictions/Additional Instructions: *You have been diagnosed with [acute dyspnea, acute CHF. Your history, physical exam, labs and imaging are very reassuring. There is no evidence of blood clot, pneumonia, heart attack, anemia, electrolyte abnormality or other emergent diagnosis. *What to do: *Please take Lasix 40 mg (2 of your 20 mg tablets tonight, and for the next 3 days please take a double dose of your Lasix so we can try to pull some of this extra fluid off. *Please follow up with your primary care provider in 2-3 days, call for an appointment. Let them know you were seen in the Emergency Department and that we ask that you be seen in follow up. We will electronically transmit a record of today's note if your PCP is in our system *If you do not have a primary care provider please contact the [facility] Resource line at [phone]. They will ask some questions about your medical history and help get you set up with a doctor in the community. *Return to Emergency Department if you should have any new, worsening or concerning symptoms, such as [fever greater than 101 F, shaking chills, worsening pain, persistent vomiting or other bothersome symptoms] Prescriptions: No Action cyclobenzaprine 10 mg tablet 10 mg PO BID PRN (Reason: muscle spasm) Qty: 60 2RF tramadol 50 mg tablet 50 mg PO BID PRN (Reason: pain) Qty: 60 1RF celecoxib 200 mg capsule See Rx Instructions .ROUTE .COMPLEX Qty: 30 3RF Dose Instruction: TAKE 1 CAPSULE BY MOUTH DAILY Rx Instructions: TAKE 1 CAPSULE BY MOUTH DAILY Qvar RediHaler 40 mcg/actuation HFA aerosol breath activated 2 inh inhalation BID 0RF biotin 1 cap PO DAILY 0RF doxycycline hyclate 100 mg capsule 100 mg PO BID Qty: 20 0RF prednisone 20 mg tablet 40 mg PO DAILY Qty: 10 0RF losartan 50 mg Tablet 50 mg PO DAILY 0RF hydrochlorothiazide 25 mg Tablet 25 mg PO DAILY 0RF albuterol sulfate 90 mcg/actuation HFA aerosol inhaler 1 - 2 puff Inhalation Q4H PRN (Reason: Wheezing) 0RF Label Comments: INL 1 TO 2 PFS PO Q 4 H FOR WHZ lorazepam [Ativan] 1 mg tablet 1 mg PO TID PRN (Reason: Anxiety) 0RF citalopram 20 mg tablet 20 mg PO DAILY 0RF zolpidem 10 mg tablet 5 mg PO BEDTIME PRN (Reason: Sleep) 0RF Referrals: Elenita Peter PA-C [Primary Care Provider] -
== END 2021-02-10 22:26 | disposition home or self-care (01) ==
PROVIDERS: Emergency Medicine; Emergency Provider Emergency Medicine; PCP Physician Assistant
DX: I11.0 Hypertensive heart disease with heart failure (principal); R06.00 Dyspnea, unspecified; Z87.891 Personal history of nicotine dependence
CPT/HCPCS: 36415; 71046; 71275; 80053; 82550; 83605; 83880; 84484; 85025; 85379; 85651; 86140; 87635; 93005; 93010; 99284; C9803; Q9967

== ENCOUNTER 2021-02-13 10:11 | Emergency (ER) | payer OTHER, SELFPAY ==
[2021-02-13 10:20] VITALS: BP 148/74; PULSE 95; RESP 20; TEMP 36.6; O2SAT 96; BMI 22.6
--- NOTE | 2021-02-13 10:29 | DI.RAD.S_ITS ---
PROCEDURE: XR CHEST 2V INDICATIONS: shortness of breath TECHNIQUE: 2 views of the chest were acquired. COMPARISON: [facility], CT, CT ANGIO CHEST PE PROTOCOL, 02/10/2021, 19:43. [facility], CR, XR CHEST 1V, 12/09/2020, 11:39. [facility], CR, XR CHEST 2V, 02/10/2021, 17:35. FINDINGS: Surgical changes and devices: Cholecystectomy clips are seen. Faintly seen bilateral pulmonary staple lines are seen. Lungs and pleura: Lungs are clear. No pleural effusions or pneumothorax. The lungs are hyperexpanded, with flattening of the hemidiaphragms seen. Mediastinum: Mediastinal contours are normal. Heart size is normal. Atherosclerotic calcification of the aortic arch is noted. Bones and chest wall: No suspicious bony abnormalities. Soft tissues appear unremarkable. IMPRESSION: Hyperexpanded lungs, without an acute cardiopulmonary process identified. Postoperative and degenerative changes are seen, including bilateral pulmonary resections. Dictated by: Paulino Beasley M.D. on 02/13/2021 at 9:43 Approved by: Paulino Beasley M.D. on 02/13/2021 at 9:47
--- NOTE | 2021-02-13 11:24 | ED.SOB ---
HPI - SOB/Dyspnea General Chief Complaint: Shortness of Breath/Dyspnea Stated Complaint: SOB/ WAS HERE ON THURSDAY Time Seen by Provider: 02/13/21 10:35 Source: patient Mode of arrival: Ambulatory Limitations: no limitations History of Present Illness HPI Narrative: 65-year-old female with complaint of shortness of breath. Patient was seen here on the . She has had continued shortness of breath for about a week. She has had a cough which she states was very thick but clear last night her oxygen levels 88% intermittently and then back up to 92% when she was checking in between coughing. She has not had any fevers or chills. She had COVID at the end of December, she tested negative by January 17. She is vaccinated and received antibodies on January 11. She denies chest pain or pressure. She was wheezy last night while coughing she used her nebulizer last night and this morning which was helpful. She has not been on any oral steroids since November or December. She does not appreciate any swelling in her lower extremities. She has had a lung resection for lung cancer in April of 2018. She quit smoking at that time and has emphysema. She is supposed to be on QVAR but quit a week ago because of thrush and she was not sure if it was helpful. She takes losartan for hypertension, Celebrex 200 mg daily, tramadol 50 mg as needed, Ambien and was started on furosemide 20 mg increased to 40 mg on the this and has taken 80 mg total yesterday and today. She has not had any fevers or chills. Her primary care is Lin Peter. She has no allergies to medications. No alcohol or illicit. Related Data Home Medications Medication Instructions Recorded Confirmed hydrochlorothiazide 25 mg tablet 25 mg PO DAILY 03/24/18 11/26/20 losartan 50 mg tablet 50 mg PO DAILY 03/24/18 11/26/20 albuterol sulfate 90 mcg/actuation 1 - 2 puff INHALATION Q4H PRN 04/23/18 11/26/20 aerosol inhaler citalopram 20 mg tablet 20 mg PO DAILY 05/09/19 11/26/20 lorazepam 1 mg tablet (Ativan) 1 mg PO TID PRN 05/09/19 11/26/20 zolpidem 10 mg tablet 5 mg PO BEDTIME PRN tab 09/19/19 11/26/20 beclomethasone dipropionate 40 2 inh INHALATION BID 03/15/20 11/26/20 mcg/actuation HFA breath activated aerosol (Qvar RediHaler) biotin 1 cap PO DAILY 03/21/20 11/26/20 Previous Rx's Medication Instructions Recorded cyclobenzaprine 10 mg tablet 10 mg PO BID PRN #60 tab 08/27/20 tramadol 50 mg tablet 50 mg PO BID PRN #60 tab 10/26/20 celecoxib 200 mg capsule See Rx Instructions .ROUTE 11/23/20 .COMPLEX #30 cap doxycycline hyclate 100 mg capsule 100 mg PO BID #20 cap 12/09/20 prednisone 20 mg tablet 40 mg PO DAILY #10 tab 12/09/20 albuterol sulfate 90 mcg/actuation 2 puff INHALATION Q4-6H PRN #8.5 g 02/13/21 aerosol inhaler (ProAir HFA) prednisone 50 mg tablet 50 mg PO DAILY #5 tab 02/13/21 Allergies Allergy/AdvReac Type Severity Reaction Status Date / Time No Known Drug Allergies Allergy Verified 11/26/20 08:12 Review of Systems Review of Systems ROS Unobtainable: All systems reviewed & are unremarkable except as noted in HPI and below Patient History Medical History Cholelithiasis COPD (chronic obstructive pulmonary disease) Facet arthropathy, lumbar HTN (hypertension) Lumbar stenosis Pulmonary nodule Sacral back pain Scoliosis Scoliosis due to degenerative disease of spine in adult patient Surgical History History of History of elbow surgery History of lung surgery Hx of foot surgery Family History Father Hypertension Diabetes mellitus Mother Hypertension Other No pertinent family history Social History marital status: household members: spouse occupational status: employed Smoking Status: Former smoker alcohol intake: never substance use type: does not use Smoking Status: Former smoker alcohol intake frequency: holidays/special occasions only Substance Use Type: does not use Exam Narrative Exam Narrative: GENERAL: Alert and oriented x three, female in mild distress. HEENT: Head normocephalic, atraumatic, EOMI, pupils reactive, nares are clear bilaterally, face symmetric, moist mucous membranes NECK: Supple, full range of motion CARDIOVASCULAR: Regular rate and rhythm without murmurs, rubs or gallops. RESPIRATORY: Breath sounds equal bilaterally, slightly decreased but present, no wheezes rales or rhonchi. No tachypnea accessory muscle use. No tachypnea. Patient speaks in full sentences. ABDOMEN: Soft, nontender. Normoactive bowel sounds all 4 quadrants. No guarding or rebound, rigidity, no mass : No CVA tenderness EXTREMITIES: Normal range of motion, no clubbing or edema. Neurovascularly intact NEUROLOGICAL: Cranial nerves II through XII grossly intact. Moving all extremities SKIN: Warm, dry, no petechiae, no rashes or lesions. Initial Vital Signs Initial Vital Signs: Vital Signs Temperature 97.8 F 02/13/21 10:20 Pulse Rate 95 H 02/13/21 10:20 Respiratory Rate 20 02/13/21 10:20 Blood Pressure 148/74 H 02/13/21 10:20 Pulse Oximetry 96 02/13/21 10:20 Course Orders Ordered: ED Orders 02/13/21 10:29 XR chest 2V Stat EKG-12 Lead Stat Measure peak expiratory flow ONCE RT Consult Eval and Treat Now 02/13/21 10:30 COVID19 -Nasal swab/Pre-Proc Stat 02/13/21 11:37 BNP [NT-proBNP (BNP-Adult 18+)] Stat Complete Blood Count AUTO DIFF Stat Comprehensive Metabolic Panel Stat Lactate (Lactic Acid) Stat Respiratory Panel (Film Array) Stat Troponin & CK Cardiac Panel Stat Discontinued Medications Methylprednisolone (Methylprednisolone 125 Mg/2 Ml Vial) 125 mg IV NOW ONE Stop: 02/13/21 11:45 Last Admin: 02/13/21 12:09 Dose: 125 mg Documented by: NADIRA Reevaluation(s) Reevaluation #1: Patient has not had any hypoxia, she has not had any worsening symptoms required breathing treatments here in the department. Reviewed her findings today. She is COVID positive she was positive in December this may be a persistent positive although she states she has had negative tests in the interim but unclear if these are PCR or rapid tests or antigen test. We discussed she may have some prolonged symptoms from this. She should restart her QVAR, she may benefit from some steroids and she has a pulse oximeter at home that she can continue to monitor with. Vital Signs Vital signs: Vital Signs - 8 hr 02/13/21 13:32 Pulse Rate 91 H Respiratory Rate 20 Blood Pressure 167/76 H Pulse Oximetry 94 MDM - SOB/Dyspnea Lab Data Result diagrams: 02/13/21 11:37 02/13/21 11:37 Labs: Lab Results 02/13/21 02/13/21 02/13/21 Range/Units 10:30 11:37 11:37 WBC 8.3 (4.5-11.0) X10^3/uL RBC 4.76 (4.0-5.2) X10^6/uL Hgb 14.2 (12.0-16.0) g/dL Hct 42.1 (36-46) % MCV 88.4 (80-100) fL MCH 29.9 (26-34) PG MCHC 33.9 (30-36) % RDW 14.3 (11.6-14.8) % Plt Count 223 (150-400) X10^3/uL Neut % (Auto) 69.7 (50-75) % Lymph % (Auto) 15.9 L (25-40) % Griggs % (Auto) 9.2 (3-14) % Eos % (Auto) 4.5 H (2-4) % Baso % (Auto) 0.7 (0-2) % Neut # (Auto) 5800 (5633-7128) /uL Lymph # (Auto) 1300 (8839-6551) /uL Griggs # (Auto) 800 (0-900) /uL Eos # (Auto) 400 (0-450) /uL Baso # (Auto) 100 (0-100) /uL Sodium 138 (137-145) mmol/L Potassium 4.4 (3.4-5.1) mmol/L Chloride 102 (98-107) mmol/L Carbon Dioxide 27 (22-32) mmol/L BUN 30 H (7-17) mg/dL Creatinine 0.79 (0.52-1.04) mg/dL Estimated GFR > 60.0 (>60) mL/min BUN/Creatinine Ratio 38.0 H (6-22) Glucose 114 H (80-110) mg/dL Lactate (0.7-2.1) mmol/L Calcium 9.7 (8.4-10.2) mg/dL Total Bilirubin 1.0 (0.2-1.3) mg/dL AST 38 H (14-36) IU/L ALT 45 H (<35) IU/L Alkaline Phosphatase 107 (38-126) U/L Total Creatine Kinase (30-135) U/L CK-MB (CK-2) CK-MB (CK-2) Rel Index Troponin I (0.01-0.034) ng/mL NT-Pro-B Natriuret Pep 575 H (<125) pg/mL Total Protein 7.6 (6.3-8.2) g/dL Albumin 4.5 (3.5-5.0) g/dL Globulin 3.1 (1.7-4.1) g/dL Albumin/Globulin Ratio 1.5 (1.0-2.8) Chlamy pneumoniae PCR (Not Detect) Adenovirus (PCR) (Not Detect) B. pertussis DNA (PCR) (Not Detecte) B.parapertussis DNA PCR (Not Detecte) Coronavirus OC43 (PCR) (Not Detect) Coronavirus HKU1 (PCR) (Not Detect) Coronavirus 229E (PCR) (Not Detect) SARS-CoV-2 (PCR) Negative (Negative) Coronavirus NL63 (PCR) (Not Detect) Human Metapneumovir PCR (Not Detect) Influenza Type A (PCR) (Not Detect) Influenza Type B (PCR) (Not Detect) M. pneumoniae (PCR) (Not Detect) Parainfluenza 1 (PCR) (Not Detect) Parainfluenza 2 (PCR) (Not Detect) Parainfluenza 3 (PCR) (Not Detect) Parainfluenza 4 (PCR) (Not Detect) RSV (PCR) (Not Detect) Entero/Rhino (PCR) (Not Detect) 02/13/21 02/13/21 02/13/21 Range/Units 11:37 11:37 11:37 WBC (4.5-11.0) X10^3/uL RBC (4.0-5.2) X10^6/uL Hgb (12.0-16.0) g/dL Hct (36-46) % MCV (80-100) fL MCH (26-34) PG MCHC (30-36) % RDW (11.6-14.8) % Plt Count (150-400) X10^3/uL Neut % (Auto) (50-75) % Lymph % (Auto) (25-40) % Griggs % (Auto) (3-14) % Eos % (Auto) (2-4) % Baso % (Auto) (0-2) % Neut # (Auto) (4155-7883) /uL Lymph # (Auto) (9340-9603) /uL Griggs # (Auto) (0-900) /uL Eos # (Auto) (0-450) /uL Baso # (Auto) (0-100) /uL Sodium (137-145) mmol/L Potassium (3.4-5.1) mmol/L Chloride (98-107) mmol/L Carbon Dioxide (22-32) mmol/L BUN (7-17) mg/dL Creatinine (0.52-1.04) mg/dL Estimated GFR (>60) mL/min BUN/Creatinine Ratio (6-22) Glucose (80-110) mg/dL Lactate 1.1 (0.7-2.1) mmol/L Calcium (8.4-10.2) mg/dL Total Bilirubin (0.2-1.3) mg/dL AST (14-36) IU/L ALT (<35) IU/L Alkaline Phosphatase (38-126) U/L Total Creatine Kinase 73 (30-135) U/L CK-MB (CK-2) TNP CK-MB (CK-2) Rel Index TNP Troponin I < 0.012 (0.01-0.034) ng/mL NT-Pro-B Natriuret Pep (<125) pg/mL Total Protein (6.3-8.2) g/dL Albumin (3.5-5.0) g/dL Globulin (1.7-4.1) g/dL Albumin/Globulin Ratio (1.0-2.8) Chlamy pneumoniae PCR Not detected (Not Detect) Adenovirus (PCR) Not detected (Not Detect) B. pertussis DNA (PCR) Not detected (Not Detecte) B.parapertussis DNA PCR Not detected (Not Detecte) Coronavirus OC43 (PCR) Not detected (Not Detect) Coronavirus HKU1 (PCR) Not detected (Not Detect) Coronavirus 229E (PCR) Not detected (Not Detect) SARS-CoV-2 (PCR) Detected H (Negative) Coronavirus NL63 (PCR) Not detected (Not Detect) Human Metapneumovir PCR Not detected (Not Detect) Influenza Type A (PCR) Not detected (Not Detect) Influenza Type B (PCR) Not detected (Not Detect) M. pneumoniae (PCR) Not detected (Not Detect) Parainfluenza 1 (PCR) Not detected (Not Detect) Parainfluenza 2 (PCR) Not detected (Not Detect) Parainfluenza 3 (PCR) Not detected (Not Detect) Parainfluenza 4 (PCR) Not detected (Not Detect) RSV (PCR) Not detected (Not Detect) Entero/Rhino (PCR) Not detected (Not Detect) Imaging Data Chest x-ray: Radiologist's Impression: [address] [address] XRay Report Signed Patient: Martine Conde MR#: [id number] : 1955 Acct:[id number] Age/Sex: 65 / F Date of Service: 02/13/21 Loc: ED Accession Number: [id number] ?? Procedure: XR chest 2V Ordering Provider: Jessi Austin D.O. PROCEDURE:? XR CHEST 2V ? INDICATIONS:? shortness of breath ? TECHNIQUE:? 2 views of the chest were acquired.? ? COMPARISON:? [facility], CT, CT ANGIO CHEST PE PROTOCOL, 02/10/2021, 19:43.? [facility], CR, XR CHEST 1V, 12/09/2020, 11:39.? [facility], CR, XR CHEST 2V, 02/10/2021, 17:35. ? FINDINGS:? ? Surgical changes and devices:? Cholecystectomy clips are seen.? Faintly seen bilateral pulmonary staple lines are seen. ? Lungs and pleura:? Lungs are clear.? No pleural effusions or pneumothorax.? The lungs are hyperexpanded, with flattening of the hemidiaphragms seen. ? Mediastinum:? Mediastinal contours are normal.? Heart size is normal.? Atherosclerotic calcification of the aortic arch is noted.? ? Bones and chest wall:? No suspicious bony abnormalities.? Soft tissues appear unremarkable.? ? IMPRESSION:? ? Hyperexpanded lungs, without an acute cardiopulmonary process identified. ? Postoperative and degenerative changes are seen, including bilateral pulmonary resections.? ? ? Dictated by: Paulino Beasley M.D. on 02/13/2021 at 9:43 ? ? Approved by: Paulino Beasley M.D. on 02/13/2021 at 9:47?? ECG Data Attestation: I personally reviewed and interpreted this ECG as follows: Interpretation: Sinus rhythm. ST changes appreciated but are present on prior EKG from 02/10/2021 with no new changes. Patient has T-wave changes in lateral leads which are not new. Rate is 88, KS is 142 QRS is 88 QTC is 454. MDM Narrative Medical decision making narrative: This is a 65-year-old female comes in with shortness of breath with intermittent cough, patient states her shortness of breath never really resolved after her COVID and has continued persistently. 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 Patient lungs are clear on examination with some mild decreased. Her vital signs are appropriate. She also notes she stopped her QVAR a week ago. She has been diuresed with oral Lasix at home. Labs ring repeat including cardiac enzyme, BNP and a respiratory panel was included to evaluate for other viral illnesses. BNP is slightly elevated but patient is not fluid overloaded in her findings today do not seem to support that as much. Plan to have patient restart her QVAR, prednisone taper and possibly Z-Tigre. Patient does find her nebulizer helpful and is to continue this. If she continues to have persistent symptoms would recommend having further cardiac workup with her primary care and possibly stress testing. Patient noted she had an echo in December. She is COVID positive today on her findings but this could be persistent from her prior infection. Discharge Plan Departure Patient Disposition: Home Clinical Impression: Dyspnea, COVID-19 virus infection Activity Restrictions/Additional Instructions: Follow-up with your physician. Call for an appointment. If you have persistent symptoms despite optimizing your breathing medications your physician may wish to follow with stress testing or even an echo to further evaluate. Your respiratory panel is positive for COVID today but this may be persistent from your prior infection. Please restart your QVAR twice daily. Continue to use your nebulizer and ProAir as needed. Take prednisone daily until gone. Prescription sent to [facility] in [place]. Please return for worsening symptoms, new chest pain, shortness of breath, passing out or lightheadedness, worsening swelling of your extremities or other new or concerning symptoms. Prescriptions: New prednisone 50 mg tablet 50 mg PO DAILY Qty: 5 0RF albuterol sulfate [ProAir HFA] 90 mcg/actuation HFA aerosol inhaler 2 puff inhalation Q4-6H PRN (Reason: shortness of breath or wheezing) Qty: 8.5 0RF No Action cyclobenzaprine 10 mg tablet 10 mg PO BID PRN (Reason: muscle spasm) Qty: 60 2RF tramadol 50 mg tablet 50 mg PO BID PRN (Reason: pain) Qty: 60 1RF celecoxib 200 mg capsule See Rx Instructions .ROUTE .COMPLEX Qty: 30 3RF Dose Instruction: TAKE 1 CAPSULE BY MOUTH DAILY Rx Instructions: TAKE 1 CAPSULE BY MOUTH DAILY Qvar RediHaler 40 mcg/actuation HFA aerosol breath activated 2 inh inhalation BID 0RF biotin 1 cap PO DAILY 0RF doxycycline hyclate 100 mg capsule 100 mg PO BID Qty: 20 0RF prednisone 20 mg tablet 40 mg PO DAILY Qty: 10 0RF losartan 50 mg Tablet 50 mg PO DAILY 0RF hydrochlorothiazide 25 mg Tablet 25 mg PO DAILY 0RF albuterol sulfate 90 mcg/actuation HFA aerosol inhaler 1 - 2 puff Inhalation Q4H PRN (Reason: Wheezing) 0RF Label Comments: INL 1 TO 2 PFS PO Q 4 H FOR WHZ lorazepam [Ativan] 1 mg tablet 1 mg PO TID PRN (Reason: Anxiety) 0RF citalopram 20 mg tablet 20 mg PO DAILY 0RF zolpidem 10 mg tablet 5 mg PO BEDTIME PRN (Reason: Sleep) 0RF Referrals: Elenita Peter PA-C [Primary Care Provider] -
[2021-02-13 11:35] LABS: COVID19 -Nasal RAPID Negative (Negative)
[2021-02-13 11:53] LABS: Add Manual Diff / Slide Review NO; Basophils Absolute Auto 100 /uL (0-100); Basophils Percent Auto 0.7 % (0-2); Eosinophils Absolute Auto 400 /uL (0-450); Eosinophils Percent Auto 4.5 % (2-4); Hematocrit 42.1 % (36-46); Hemoglobin 14.2 g/dL (12.0-16.0); Lymphocytes Absolute Auto 1300 /uL (1100-4500); Lymphocytes Percent Auto 15.9 % (25-40); Mean Corpuscular HGB Conc 33.9 % (30-36); Mean Corpuscular Hemoglobin 29.9 PG (26-34); Mean Corpuscular Volume 88.4 fL (80-100); Monocytes Absolute Auto 800 /uL (0-900); Monocytes Percent Auto 9.2 % (3-14); Neutrophils Absolute Auto 5800 /uL (1500-7000); Neutrophils Percent Auto 69.7 % (50-75); Platelet Count 223 X10^3/uL (150-400); Red Blood Cell Count 4.76 X10^6/uL (4.0-5.2); Red Cell Distribution Width 14.3 % (11.6-14.8); White Blood Cell Count 8.3 X10^3/uL (4.5-11.0)
[2021-02-13 12:05] LABS: Creatine Kinase 73 U/L (30-135); Lactate (Lactic Acid) 1.1 mmol/L (0.7-2.1)
[2021-02-13 12:06] LABS: Alanine Aminotransferase 45 IU/L (<35); Albumin 4.5 g/dL (3.5-5.0); Albumin Globulin Ratio 1.5 (1.0-2.8); Alkaline Phosphatase 107 U/L (38-126); Aspartate Aminotransferase 38 IU/L (14-36); Blood Urea Nitrogen 30 mg/dL (7-17); Calcium 9.7 mg/dL (8.4-10.2); Carbon Dioxide 27 mmol/L (22-32); Chloride 102 mmol/L (98-107); Estimated Glomerular Filt Rate > 60.0 mL/min (>60); Globulin 3.1 g/dL (1.7-4.1); Glucose 114 mg/dL (80-110); Potassium 4.4 mmol/L (3.4-5.1); Sodium 138 mmol/L (137-145); Total Protein 7.6 g/dL (6.3-8.2)
[2021-02-13 12:08] LABS: HEMOLYSIS 58 (0-50)
[2021-02-13] MEDS: methylPREDNISolone 125 MG/2 ML VIAL IV (12:09)
[2021-02-13 12:15] LABS: NT-proBNP (BNP-Adult 18+) 575 pg/mL (<125)
[2021-02-13 12:18] LABS: Troponin I < 0.012 ng/mL (0.01-0.034)
[2021-02-13 12:57] LABS: Adenovirus Not Detected (Not Detect); B. parapertussis Not Detected (Not Detecte); Bordetella pertussis Not Detected (Not Detecte); Chlamydophila pneumoniae Not Detected (Not Detect); Coronavirus 229E Not Detected (Not Detect); Coronavirus HKU1 Not Detected (Not Detect); Coronavirus NL 63 Not Detected (Not Detect); Coronavirus OC43 Not Detected (Not Detect); Human Metapneumovirus Not Detected (Not Detect); Human Rhinovirus/Enterovirus Not Detected (Not Detect); Influenza A Not Detected (Not Detect); Influenza B Not Detected (Not Detect); Mycoplasma pneumoniae Not Detected (Not Detect); Parainfluenza Virus 1 Not Detected (Not Detect); Parainfluenza Virus 2 Not Detected (Not Detect); Parainfluenza Virus 3 Not Detected (Not Detect); Parainfluenza Virus 4 Not Detected (Not Detect); Respiratory Syncytial Virus Not Detected (Not Detect)
[2021-02-13 13:00] LABS: SARS- CoV-2 Detected (Not Detecte)
[2021-02-13 13:32] VITALS: BP 167/76; PULSE 91; RESP 20; O2SAT 94
== END 2021-02-13 13:58 | disposition home or self-care (01) ==
PROVIDERS: Emergency Provider Emergency Medicine; PCP Physician Assistant
DX: U07.1 COVID-19 (principal); R06.00 Dyspnea, unspecified; I10 Essential (primary) hypertension; Z87.891 Personal history of nicotine dependence
CPT/HCPCS: 36415; 71046; 80053; 82550; 83605; 83880; 84484; 85025; 87633; 87635; 93005; 93010; 96374; 99284; C9803; J2930

== ENCOUNTER → 2021-03-06 15:14 | Outpatient (CLI) | payer OTHER, SELFPAY ==
--- NOTE | 2021-03-06 15:16 | DI.RAD.S_ITS ---
PROCEDURE: XR CHEST 2V INDICATIONS: COUGH TECHNIQUE: 2 views of the chest were acquired. COMPARISON: [facility], CR, XR CHEST 1V, 12/09/2020, 11:39. [facility], CT, CT ANGIO CHEST PE PROTOCOL, 02/10/2021, 19:43. [facility], CR, XR CHEST 2V, 02/10/2021, 17:35. [facility], CR, XR CHEST 2V, 02/13/2021, 10:27. FINDINGS: Surgical changes and devices: Bilateral staple lines are present suggesting previous partial lung resection is bilaterally.. Lungs and pleura: Lungs are isha, aside from bibasilar scar-like opacities. scar-like opacities.. No pleural effusions or pneumothorax. Mediastinum: Mediastinal contours are normal. Heart size is normal. Bones and chest wall: No suspicious bony abnormalities. Soft tissues appear unremarkable. IMPRESSION: 1. Bilateral staple lines present suggesting prior partial lung resection bilaterally and there is mild scarring at the lung bases which also is unchanged. No acute cardiopulmonary disease. Dictated by: Lamont Griffith RR Interpreted: Brijesh Mayo MD on 03/06/2021 at 15:34 Transcribed by: LUKAS on 03/06/2021 at 15:41 Approved by: Brijesh Mayo M.D. on 03/06/2021 at 17:02
== END ==
PROVIDERS: PCP Physician Assistant; Referring Provider Internal Medicine; Visit Provider Internal Medicine
DX: J44.1 Chronic obstructive pulmonary disease with (acute) exacerbation (principal); J98.4 Other disorders of lung
CPT/HCPCS: 71046

== ENCOUNTER → 2021-05-20 11:44 | Outpatient (CLI) | payer OTHER, SELFPAY ==
[2021-05-20 14:53] LABS: COVID19 -Nasal RAPID Negative (Negative)
== END ==
PROVIDERS: PCP Physician Assistant; Visit Provider Physical Medicine & Rehabilitation
DX: Z20.822 Contact with and (suspected) exposure to COVID-19 (principal)
CPT/HCPCS: 87635; C9803

== ENCOUNTER 2021-05-21 10:10 | Outpatient (CLI) | payer OTHER, SELFPAY ==
[2021-05-21] VITALS (7 sets, daily range): BP systolic 100–176; BP diastolic 59–93; PULSE 81–87; RESP 12–20; TEMP 36.4; O2SAT 95–100
--- NOTE | 2021-05-21 10:11 | DI.RAD.S_ITS ---
PROCEDURE: PAIN SI JOINT INJECTION INDICATIONS: Sacral Disorders COMPARISON: [facility], , PAIN SI JOINT INJECTION, 05/03/2020, 13:46. FINDINGS: On these intraprocedural images, there is a spinal needle seen overlying the inferior aspect of the right sacroiliac joint. Appropriate position of the tip of the needle was confirmed by injection of a small amount of iodinated contrast. IMPRESSION: Successful sacroiliac joint injection. Dictated by: Paulino Beasley M.D. on 05/21/2021 at 12:46 Approved by: Paulino Beasley M.D. on 05/21/2021 at 12:46
[2021-05-21] MEDS: MIDAZOLAM 2 MG/2 ML VIAL IV (11:05)
[2021-05-21] MEDS: fentaNYL 250 MCG/5 ML INJ (11:05)
[2021-05-21] MEDS: IOPAMIDOL 15 ML VIAL 3 ML INJ (11:07)
[2021-05-21] MEDS: BUPIVACAINE 0.5% (PF) VIAL 2 ML INJ (11:07)
[2021-05-21] MEDS: BETAMETHASONE 30 MG/5 ML MDV 12 MG INJ (11:07)
--- NOTE | 2021-05-21 11:18 | PM.PROC.IR.1 ---
Date/Time/Diagnoses Date of procedure: 05/21/21 Time of procedure: 11:18 Pre-procedure diagnosis: Sacroiliac joint pain/DJD Post-procedure diagnosis: same Procedure Notes Procedure: Fluoroscopically guided contrast controlled right sacroiliac joint injection Indications: Martine is referred by REJI Sagastume for treatment of right sacroiliac joint DJD Physician: Tony Delaney Total Fluoroscopy time (seconds): 8 Total sedation minutes: 9 Complications: none Procedure in detail & Post-procedure care: DESCRIPTION OF PROCEDURE Fluoroscopically guided, contrast controlled right sacroiliac joint injection Following review of allergies and review of potential side effects and complications, including, but not necessarily limited to, infection, allergic reaction, local tissue breakdown, temporary as well as permanent nerve injury, paralysis, stroke and possible , the patient indicated that they understood and agreed to proceed. An informed consent was signed by the patient, witnessed by a nurse, and placed in the patient's chart. Additionally, other treatment options including modalities, medications, and physical therapy were reviewed with the patient. After review of previous anaesthesic history and IV conscious sedation the patient was deemed safe to proceed with today?s procedure with IV conscious sedation as ASA class II designation. Safety time-out was performed to confirm patient ID, procedure to be performed and site of procedure. IV sedation was accomplished with a combination of 2mg of Versed and 50mcg of Fentanyl was administered by the RN after DO order, titrated to patient comfort during the course of the procedure while the patient remained responsive to all verbal commands In the prone position following sterile prep and drape of the pelvic region, the hyper lucency on in the inferior aspect of the sacroiliac joint was identified fluoroscopically the skin was anesthetized be a 25 gauge 1 eventual with approximately 2 cc of 1% lidocaine solution. At this point, a 22 gauge 3 in spinal needle was atraumatically introduced and advanced under fluoroscopic guidance into the inferior aspect of the right sacroiliac joint. Following negative aspiration, approximately 0.3cc of [id number]-[id number] was injected confirming intra-articular placement without vascular uptake. Radiographic data, including multiple fluoroscopic views of the pelvis, reveals a spinal needle in the sacroiliac joint hyper lucent zone. Subsequent view show flow contrast tear superiorly and inferiorly within the joint capsule without vascular intrathecal uptake. At this point a total of 1 of 0.5% Marcaine was combined with 1cc of 6 mg of betamethasone was injected without incident. The procedure tolerated the procedure well without signs or symptoms of complications prior to transfer to the recovery area continued monitoring without incident. The patient was then transferred to the recovery area with a bur observed for an appropriate time after the injection. The patient reverted a vas score of 7 prior to the procedure and post-procedure vas of 1. POSTOP INSTRUCTIONS The patient was provided with a pain like to continue to record the patient's response to the target specific procedure prior to the patient's follow-up visit with the referring physician. Additionally, specific post injection care instructions and a contact number to our office were provided if concerns arise regarding the possible complications associated with procedure are suspected.
== END 2021-05-21 11:37 | disposition home or self-care (01) ==
LOC: RAD 10:11
PROVIDERS: PCP Physician Assistant; Referring Provider Physical Medicine & Rehabilitation; Visit Provider Physical Medicine & Rehabilitation
DX: M53.3 Sacrococcygeal disorders, not elsewhere classified (principal); M46.1 Sacroiliitis, not elsewhere classified
CPT/HCPCS: 27096; J0702; J2250; J3010

== ENCOUNTER → 2021-08-16 10:32 | Outpatient (CLI) | payer OTHER, SELFPAY ==
--- NOTE | 2021-08-16 10:33 | DI.RAD.S_ITS ---
PROCEDURE: XR LUMBAR SPINE MIN 4V INDICATIONS: scoliosis with Bilat LE Symptoms TECHNIQUE: 4 views of the lumbar spine were acquired, including bilateral oblique views. COMPARISON: [facility], , XR LUMBAR SPINE MIN 4V, 05/02/2019, 10:51. FINDINGS: Bones: 5 nonrib-bearing vertebrae are present. Severe dextroconvex curvature of the lumbar spine is again seen that does not appear significantly changed. Multilevel degenerative endplate changes and facet hypertrophy are seen. No vertebral body compression fractures. No suspicious bony lesions. Soft tissues: Overlying bowel gas pattern is normal. No suspicious soft tissue calcifications. Aortic atherosclerotic calcifications. Right upper quadrant cholecystectomy clips. Oblique images: No pars defects, although evaluation is suboptimal due to spinal curvature. IMPRESSION: 1. Severe dextroconvex curvature of the lumbar spine does not appear significantly changed when compared to prior radiographs from 05/02/2019. 2. Multilevel spondylosis. Dictated by: Jarred Cook M.D. on 08/16/2021 at 11:14 Approved by: Jarred Cook M.D. on 08/16/2021 at 11:19
== END ==
PROVIDERS: PCP Physician Assistant; Referring Provider Physical Medicine & Rehabilitation; Visit Provider Physical Medicine & Rehabilitation
DX: M48.061 Spinal stenosis, lumbar region without neurogenic claudication (principal); M41.80 Other forms of scoliosis, site unspecified; M47.816 Spondylosis without myelopathy or radiculopathy, lumbar region
CPT/HCPCS: 72110

== ENCOUNTER → 2021-08-21 10:01 | Outpatient (CLI) | payer OTHER, SELFPAY ==
[2021-08-21 11:51] LABS: COVID19 -Nasal RAPID Negative (Negative)
== END ==
PROVIDERS: PCP Physician Assistant; Visit Provider Physical Medicine & Rehabilitation
DX: Z20.822 Contact with and (suspected) exposure to COVID-19 (principal)
CPT/HCPCS: 87635; C9803

== ENCOUNTER 2021-08-22 08:43 | Outpatient (CLI) | payer OTHER, SELFPAY ==
[2021-08-22] VITALS (8 sets, daily range): BP systolic 104–155; BP diastolic 66–80; PULSE 78–97; RESP 16–23; TEMP 36.2; O2SAT 95–99
--- NOTE | 2021-08-22 08:46 | DI.RAD.S_ITS ---
PROCEDURE: PAIN L INTERLAMINAR/CAUDAL INJ INDICATIONS: SPONDYLOSIS COMPARISON: [facility], CR, XR LUMBAR SPINE MIN 4V, 08/16/2021, 10:22. FINDINGS: Fluoroscopic spot filming was performed to verify placement of a spinal needle at the L3-L4 level, as labeled on the films. Appropriate location of the needle tip was confirmed by injection of iodinated contrast. IMPRESSION: Intraprocedural examination within normal limits. Dictated by: Paulino Beasley M.D. on 08/22/2021 at 9:56 Approved by: Paulino Beasley M.D. on 08/22/2021 at 9:56
[2021-08-22] MEDS: MIDAZOLAM 2 MG/2 ML VIAL IV (09:55)
[2021-08-22] MEDS: BUPIVACAINE 0.25% (PF) VIAL 2 ML INJ (10:02)
[2021-08-22] MEDS: IOPAMIDOL 15 ML VIAL 3 ML INJ (10:02)
[2021-08-22] MEDS: BETAMETHASONE 30 MG/5 ML MDV 6 MG INJ (10:03)
[2021-08-22] MEDS: DEXAMETHASONE 10 MG/ML VIAL 20 MG INJ (10:03)
--- NOTE | 2021-08-22 10:10 | P.PCN_ITS ---
Date/Time/Diagnoses Date of procedure: 08/22/21 Time of procedure: 10:10 Pre-procedure diagnosis: 1. HNP WITH RADICULAR FEATURES, 2. MULTILEVEL CENTRAL STENOSIS, Post-procedure diagnosis: same Procedure Notes Procedure: 1. FLUOROSCOPICALLY GUIDED CONTRAST CONTROLLED INTERLAMINAR EPIDURAL STEROID INJECTION - L3/4 Indications: Martine is referred by [facility] for treatment of Bilateral Foraminal Stenosis L>R LE symptoms. Physician: Tony Delaney Total Fluoroscopy time (seconds): 7 Total sedation minutes: 11 Complications: none Procedure in detail & Post-procedure care: FINDINGS Multilevel Central Spinal Stenosis with Nerve Root Compression DESCRIPTION OF PROCEDURE Fluoroscopically guided, contrast-controlled L3/4 translaminar epidural steroid injection. Following review of allergy and review of potential side effects and complications, including, but not necessarily limited to, infection, allergic reaction, local tissue breakdown, temporary as well as permanent nerve injury, paralysis, stroke and possible , the patient indicated that the patient understood and agreed to proceed. An informed consent document was signed by the patient, witnessed by a nurse, and placed in the patient's chart. Additionally, other treatment options including modalities, medications, and physical therapy were reviewed with the patient. After review of previous anaesthesic history and IV conscious sedation the patient was deemed safe to proceed with today?s procedure with IV conscious sedation as ASA class II designation. Safety time-out was performed to confirm patient ID, procedure to be performed and site of procedure. IV sedation was accomplished with a combination of 2mg of Versed was administered by the RN after DO order, titrated to patient comfort during the course of the procedure while the patient remained responsive to all verbal commands. In the prone position, following sterile prep and drape of the lumbar region, the L3/4 translaminar space was identified fluoroscopically. The skin was anesthetized via a 25-gauge, 1.5-inch needle with 1% lidocaine solution. At this point, a 22-gauge short bevel spinal needle was atraumatically introduced and advanced under fluoroscopic guidance into the region of the L3/4 translaminar space. Depth was confirmed on lateral view. Radiological data, including multiple fluoroscopic views of the lumbar spine, reveal a spinal needle at the L3/4 translaminar space. Lateral views then show placement of the needle in the epidural space. Subsequent views show contrast material flowing superiorly and inferiorly in the epidural space. No vascular or intrathecal uptake is observed. At this point, using loss of resistance technique with saline and air, the epidural space was entered. This was confirmed following negative aspiration with injection of approximately 1.5 cc of Isovue 200, showing excellent epidural flow without vascular or intrathecal uptake. At this point, 1cc of 1% lidocaine solution combined with 3cc or 20mg of dexamethasone and 6mg of betamethasone was injected without incident. The patient tolerated the procedure well without signs or symptoms of complications prior to transfer to the recovery area continued monitoring without incident. The patient was then transferred to the recovery area where they were observed for an appropriate period of time after the injection. The patient reported a VAS score of 6 prior to the procedure and a post- procedure VAS of 0. POST OP INSTRUCTIONS The patient was provided a Pain Log to continue to record their response to the target-specific procedure prior to follow-up visit with their referring physician. Additionally, specific post-injection care instructions and a contact number to our office were provided if concerns arise regarding possible complications associated with the procedure are suspected.
== END 2021-08-22 10:25 | disposition home or self-care (01) ==
LOC: RAD 08:45
PROVIDERS: PCP Physician Assistant; Referring Provider Physical Medicine & Rehabilitation; Visit Provider Physical Medicine & Rehabilitation
DX: M51.16 Intervertebral disc disorders with radiculopathy, lumbar region (principal); M48.061 Spinal stenosis, lumbar region without neurogenic claudication
CPT/HCPCS: 62323; 99152; J0702; J1100; J2250

== ENCOUNTER 2022-01-14 12:51 | Outpatient (CLI) | payer OTHER, SELFPAY ==
[2022-01-14] VITALS (8 sets, daily range): BP systolic 107–163; BP diastolic 58–80; PULSE 76–84; RESP 15–25; TEMP 36.2; O2SAT 95–100
--- NOTE | 2022-01-14 12:53 | DI.RAD.S_ITS ---
PROCEDURE: PAIN L/S TRANSFORAMINAL INJECT INDICATIONS: SPONDYLOSIS COMPARISON: None. FINDINGS: Fluoroscopic spot filming was performed to verify placement of spinal needles at the right L4-L5 neural foramen level(s), as labeled on the films. Appropriate location(s) of the needle tip(s) was confirmed by injection of iodinated contrast. IMPRESSION: Access needle at the right L4-L5 neural foramen for transforaminal epidural steroid injection. Dictated by: Maria De Jesus Parada MD, PhD on 01/14/2022 at 15:26 Approved by: Maria De Jesus Parada MD, PhD on 01/14/2022 at 15:27
[2022-01-14] MEDS: MIDAZOLAM 2 MG/2 ML VIAL 4 MG IV (14:12)
[2022-01-14] MEDS: BETAMETHASONE 30 MG/5 ML MDV 6 MG INJ (14:13)
[2022-01-14] MEDS: IOPAMIDOL 15 ML VIAL 3 ML INJ (14:13)
[2022-01-14] MEDS: BUPIVACAINE 0.25% (PF) VIAL 2 ML INJ (14:13)
[2022-01-14] MEDS: DEXAMETHASONE 10 MG/ML VIAL 20 MG INJ (14:13)
--- NOTE | 2022-01-14 14:23 | PM.PROC.IR.1 ---
Date/Time/Diagnoses Date of procedure: 01/14/22 Time of procedure: 14:23 Pre-procedure diagnosis: 1. FORAMINAL STENOSIS WITH LE SYMPTOMS Post-procedure diagnosis: same Procedure Notes Procedure: 1. FLUOROSCOPICALLY GUIDED CONTRAST CONTROLLED TRANSFORAMINAL EPIDURAL STEROID INJECTION - RIGHT L4/5 TFESI Indications: Martine is referred by [facility] for treatment of Foraminal Stenosis with Right LE Symptoms Physician: Tony Delanye Total Fluoroscopy time (seconds): 12 Total sedation minutes: 15 Complications: none Procedure in detail & Post-procedure care: FINDINGS Foraminal Nerve Root Compression secondary to disc disease and facet hypertrophy DESCRIPTION OF PROCEDURE Following review of allergy and review of potential side effects and complications, including, but not necessarily limited to, infection, allergic reaction, local tissue breakdown, stroke, temporary or permanent nerve injury, paralysis, and possible , the patient indicated that the patient understood and agreed to proceed. An informed consent document was signed by the patient, witnessed by a nurse, and placed in the patient's chart. Additionally, other treatment options including medications, modalities, and physical therapy were reviewed with the patient. After review of previous anaesthesic history and IV conscious sedation the patient was deemed safe to proceed with today?s procedure with IV conscious sedation as ASA class II designation. Safety time-out was performed to confirm patient ID, procedure to be performed and site of procedure. IV sedation was accomplished with a combination of 4mg of Versed was administered by the RN after DO order, titrated to patient comfort during the course of the procedure while the patient remained responsive to all verbal commands In the prone position following sterile prep and drape of the lumbar region, the right L4/5 posterior neuroforamen was identified fluoroscopically. The skin was anesthetized via a 25-gauge 1.5-inch needle with 1% lidocaine solution. At this point, a 25-gauge 3.5-inch spinal needle was atraumatically introduced and advanced under fluoroscopic guidance through the posterior right L4/5 neuroforamen to approximately the anterior aspect of the canal. Depth was confirmed on lateral view. Following negative aspiration, injection of approximately 1.5cc of Isovue 200 under live fluoroscopy in the AP view confirmed excellent flow along the nerve root, into the epidural space without vascular or intrathecal uptake observed Radiological data, including multiple fluoroscopic views of the lumbosacral spine, reveal a spinal needle at the right L4/5 posterior neuroforamen. Subsequent views show flow of contrast material flowing superiorly and inferiorly along the nerve root confirming epidural flow. Subsequently, a test dose of 1.5 cc of 1% lidocaine solution was administered and patient was observed for two minutes for signs or symptoms of complications, including abdominal pain, shortness of breath, bilateral upper or lower extremity weakness, nausea and vomiting, prior to steroid injection. At this point, a total of 3cc or 20mg of dexamethasone and 6mg of betamethasone was injected without incident. The procedure tolerated the procedure well without signs or symptoms of complications prior to transfer to the recovery area continued monitoring without incident. The patient was then transferred to the recovery area where they were observed for an appropriate time after the injection. The patient reported a VAS score of 7 prior to the procedure and a post-procedure VAS of 0. POST OP INSTRUCTIONS The patient was provided a Pain Log to continue to record their response to the target-specific procedure prior to follow-up visit with their referring physician. Additionally, specific post-injection care instructions and a contact number to our office were provided if concerns arise regarding possible complications associated with the procedure are suspected.
== END 2022-01-14 14:36 | disposition home or self-care (01) ==
PROVIDERS: PCP Physician Assistant; Referring Provider Physical Medicine & Rehabilitation; Visit Provider Physical Medicine & Rehabilitation
DX: M48.062 Spinal stenosis, lumbar region with neurogenic claudication (principal); M51.16 Intervertebral disc disorders with radiculopathy, lumbar region
CPT/HCPCS: 64483; 99152; J0702; J1100; J2250; J3490

== ENCOUNTER → 2022-03-17 16:32 | Outpatient (CLI) | payer OTHER, SELFPAY ==
--- NOTE | 2022-03-17 16:38 | DI.RAD.S_ITS ---
PROCEDURE: XR ELBOW RT MIN 3V INDICATIONS: medial epicondyle inflammation vs infection TECHNIQUE: 3 views of the elbow were acquired. COMPARISON: None. FINDINGS: Bones: No fractures or dislocations. No suspicious bony lesions. Soft tissues: No elbow joint effusion. Ill-defined calcifications adjacent to lateral epicondyle suggestive of old avulsion injury. IMPRESSION: No acute elbow fracture or dislocation. Likely old avulsion injury involving lateral epicondyle. No significant joint effusion. Dictated by: Alfredo Mckenna M.D. on 03/17/2022 at 17:08 Approved by: Alfredo Mckenna M.D. on 03/17/2022 at 17:08
== END ==
PROVIDERS: PCP Physician Assistant; Referring Provider Physician Assistant; Visit Provider Physician Assistant
DX: M25.521 Pain in right elbow (principal)
CPT/HCPCS: 73080

== ENCOUNTER → 2022-03-21 09:33 | Outpatient (CLI) | payer OTHER, SELFPAY ==
[2022-03-21 10:16] LABS: Add Manual Diff / Slide Review NO; Basophils Absolute Auto 100 /uL (0-100); Basophils Percent Auto 0.7 % (0-2); Eosinophils Absolute Auto 200 /uL (0-450); Eosinophils Percent Auto 1.9 % (2-4); Hematocrit 42.3 % (36-46); Hemoglobin 14.1 g/dL (12.0-16.0); Lymphocytes Absolute Auto 1300 /uL (1100-4500); Lymphocytes Percent Auto 14.7 % (25-40); Mean Corpuscular HGB Conc 33.4 % (30-36); Mean Corpuscular Hemoglobin 29.5 PG (26-34); Mean Corpuscular Volume 88.3 fL (80-100); Monocytes Absolute Auto 500 /uL (0-900); Monocytes Percent Auto 5.7 % (3-14); Neutrophils Absolute Auto 6600 /uL (1500-7000); Platelet Count 272 X10^3/uL (150-400); Red Blood Cell Count 4.79 X10^6/uL (4.0-5.2); Red Cell Distribution Width 14.4 % (11.6-14.8); White Blood Cell Count 8.5 X10^3/uL (4.5-11.0)
[2022-03-21 10:37] LABS: C-Reactive Protein Quant 1.8 mg/dL (<1.0)
== END ==
PROVIDERS: PCP Physician Assistant; Referring Provider Student in an Organized Health Care Education/Training Program; Visit Provider Student in an Organized Health Care Education/Training Program
DX: L03.90 Cellulitis, unspecified (principal); M25.521 Pain in right elbow
CPT/HCPCS: 36415; 85025; 86140

== ENCOUNTER 2022-05-08 09:07 | Outpatient (CLI) | payer OTHER, SELFPAY ==
[2022-05-08] VITALS (9 sets, daily range): BP systolic 105–150; BP diastolic 55–72; PULSE 71–81; RESP 16–23; TEMP 36.3; O2SAT 96–99
--- NOTE | 2022-05-08 09:08 | DI.RAD.S_ITS ---
PROCEDURE: PAIN L/S TRANSFORAMINAL INJECT INDICATIONS: SPONDYLOSIS COMPARISON: [facility], , PAIN L/S TRANSFORAMINAL INJECT, 01/14/2022, 15:10. FINDINGS: Fluoroscopic spot filming was performed to verify placement of a spinal needle at the L4-L5 level, as labeled on the films. Appropriate location of the needle tip was confirmed by injection of iodinated contrast. IMPRESSION: Intraprocedural examination within normal limits. Dictated by: Paulino Beasley M.D. on 05/08/2022 at 13:39 Approved by: Paulino Beasley M.D. on 05/08/2022 at 13:40
--- NOTE | 2022-05-08 10:08 | PC.NURSE ---
Patient reports she had a pacer/defibrilator placed on 04/10. Subsequently she had some wound dehiscence leading to recent infection and washout of the site on Thursday05/05/22. She reports she is currently on antibiotics. Dr. Delaney made aware. Plan is to proceed with the procedure.
[2022-05-08] MEDS: MIDAZOLAM 2 MG/2 ML VIAL 4 MG IV (10:30)
[2022-05-08] MEDS: BUPIVACAINE 0.25% (PF) VIAL 2 ML INJ (10:32)
[2022-05-08] MEDS: DEXAMETHASONE 10 MG/ML VIAL 20 MG INJ (10:32)
[2022-05-08] MEDS: BETAMETHASONE 30 MG/5 ML MDV 6 MG INJ (10:33)
[2022-05-08] MEDS: IOPAMIDOL 15 ML VIAL 3 ML INJ (10:33)
--- NOTE | 2022-05-20 12:14 | PM.PROC.IR.1 ---
Date/Time/Diagnoses Date of procedure: 05/08/22 Time of procedure: 11:30 Pre-procedure diagnosis: 1. FORAMINAL STENOSIS WITH LE SYMPTOMS Procedure Notes Procedure: 1. FLUOROSCOPICALLY GUIDED CONTRAST CONTROLLED TRANSFORAMINAL EPIDURAL STEROID INJECTION - BILATERAL L4/5 TFESI Indications: Martine is referred by [facility] for treatment of Foraminal Stenosis with bilateral LE Symptoms Physician: Tony Delaney Total Fluoroscopy time (seconds): 22 Total sedation minutes: 18 Complications: none Procedure in detail & Post-procedure care: FINDINGS Foraminal Nerve Root Compression secondary to disc disease and facet hypertrophy DESCRIPTION OF PROCEDURE Following review of allergy and review of potential side effects and complications, including, but not necessarily limited to, infection, allergic reaction, local tissue breakdown, stroke, temporary or permanent nerve injury, paralysis, and possible , the patient indicated that the patient understood and agreed to proceed. An informed consent document was signed by the patient, witnessed by a nurse, and placed in the patient's chart. Additionally, other treatment options including medications, modalities, and physical therapy were reviewed with the patient. After review of previous anaesthesic history and IV conscious sedation the patient was deemed safe to proceed with today?s procedure with IV conscious sedation as ASA class II designation. Safety time-out was performed to confirm patient ID, procedure to be performed and site of procedure. IV sedation was accomplished with a combination of 2mg of Versed was administered by the RN after DO order, titrated to patient comfort during the course of the procedure while the patient remained responsive to all verbal commands In the prone position following sterile prep and drape of the lumbar region, the right L4/5 posterior neuroforamen was identified fluoroscopically. The skin was anesthetized via a 25-gauge 1.5-inch needle with 1% lidocaine solution. At this point, a 25-gauge 3.5-inch spinal needle was atraumatically introduced and advanced under fluoroscopic guidance through the posterior right L4/5 neuroforamen to approximately the anterior aspect of the canal. Depth was confirmed on lateral view. Following negative aspiration, injection of approximately 1.5cc of Isovue 200 under live fluoroscopy in the AP view confirmed excellent flow along the nerve root, into the epidural space without vascular or intrathecal uptake observed Radiological data, including multiple fluoroscopic views of the lumbosacral spine, reveal a spinal needle at the right L4/5 posterior neuroforamen. Subsequent views show flow of contrast material flowing superiorly and inferiorly along the nerve root confirming epidural flow. Subsequently, a test dose of 1.5cc of 1% lidocaine solution was administered and patient was observed for two minutes for signs or symptoms of complications, including abdominal pain, shortness of breath, bilateral upper or lower extremity weakness, nausea and vomiting, prior to steroid injection. At this point, a total of 3cc or 20mg of dexamethasone and 6mg betamethasone was injected without incident. Attention was then refocused to the left L4/5 level where the identical procedure was replicated. The procedure tolerated the procedure well without signs or symptoms of complications prior to transfer to the recovery area continued monitoring without incident. The patient was then transferred to the recovery area where they were observed for an appropriate time after the injection. The patient reported a VAS score of 7 prior to the procedure and a post-procedure VAS of 0. POST OP INSTRUCTIONS The patient was provided a Pain Log to continue to record their response to the target-specific procedure prior to follow-up visit with their referring physician. Additionally, specific post-injection care instructions and a contact number to our office were provided if concerns arise regarding possible complications associated with the procedure are suspected.
== END 2022-05-08 11:04 | disposition home or self-care (01) ==
LOC: RAD 09:07
PROVIDERS: PCP Physician Assistant; Referring Provider Physical Medicine & Rehabilitation; Visit Provider Physical Medicine & Rehabilitation
DX: M48.061 Spinal stenosis, lumbar region without neurogenic claudication (principal); M51.16 Intervertebral disc disorders with radiculopathy, lumbar region
CPT/HCPCS: 64483; 99152; J0702; J1100; J2250; J3490

== ENCOUNTER 2022-06-28 09:39 | Emergency (ER) | payer OTHER, SELFPAY ==
[2022-06-28] VITALS (18 sets, daily range): BP systolic 130–175; BP diastolic 61–80; PULSE 75–86; RESP 14–42; TEMP 37.3; O2SAT 88–98; BMI 25.0
--- NOTE | 2022-06-28 09:54 | DI.RAD.S_ITS ---
PROCEDURE: XR CHEST 1V INDICATIONS: chest pain TECHNIQUE: One view of the chest was acquired. COMPARISON: [facility], CR, XR CHEST 2V, 03/06/2021, 15:07. FINDINGS: Surgical changes and devices: Left-sided dual-chamber pacemaker/defibrillator Lungs and pleura: Lungs are clear. No pleural effusions or pneumothorax. Mediastinum: Mediastinal contours appear normal. Heart size is normal. Atherosclerotic vascular calcification noted in the aortic arch. Bones and chest wall: No suspicious bony lesions. Overlying soft tissues appear unremarkable. IMPRESSION: No acute cardiopulmonary findings Approved by: Ian Isidro M.D. on 06/28/2022 at 10:44
[2022-06-28 10:30] LABS: Prothrombin Time 11.8 SECONDS (10.1-12.7)
[2022-06-28 10:31] LABS: Add Manual Diff / Slide Review NO; Basophils Absolute Auto 100 /uL (0-100); Basophils Percent Auto 1.1 % (0-2); Eosinophils Absolute Auto 500 /uL (0-450); Eosinophils Percent Auto 6.4 % (2-4); Hematocrit 40.8 % (36-46); Hemoglobin 13.8 g/dL (12.0-16.0); Lymphocytes Absolute Auto 900 /uL (1100-4500); Lymphocytes Percent Auto 11.4 % (25-40); Mean Corpuscular HGB Conc 33.8 % (30-36); Mean Corpuscular Volume 88.6 fL (80-100); Monocytes Absolute Auto 500 /uL (0-900); Monocytes Percent Auto 6.3 % (3-14); Neutrophils Absolute Auto 5900 /uL (1500-7000); Neutrophils Percent Auto 74.8 % (50-75); Platelet Count 247 X10^3/uL (150-400); Red Blood Cell Count 4.61 X10^6/uL (4.0-5.2); Red Cell Distribution Width 14.5 % (11.6-14.8); White Blood Cell Count 7.9 X10^3/uL (4.5-11.0)
[2022-06-28 10:32] LABS: PTT Partial Thromboplastin Tim 33 SECONDS (26-36)
[2022-06-28 10:34] LABS: Alanine Aminotransferase 29 IU/L (<35); Albumin 4.5 g/dL (3.5-5.0); Albumin Globulin Ratio 1.4 (1.0-2.8); Alkaline Phosphatase 129 U/L (38-126); Aspartate Aminotransferase 28 IU/L (14-36); BUN Creatinine Ratio 20.2 (6-22); Bilirubin Total 0.6 mg/dL (0.2-1.3); Blood Urea Nitrogen 18 mg/dL (7-17); Calcium 9.1 mg/dL (8.4-10.2); Carbon Dioxide 30 mmol/L (22-32); Chloride 102 mmol/L (98-107); Creatine Kinase 93 U/L (30-135); Estimated Glomerular Filt Rate > 60 mL/min (>60); Globulin 3.2 g/dL (1.7-4.1); Glucose 105 mg/dL (80-110); HEMOLYSIS < 15 (0-50); Lactate (Lactic Acid) 1.3 mmol/L (0.7-2.1); Lipase 103 U/L (23-300); Sodium 140 mmol/L (137-145); Total Protein 7.7 g/dL (6.3-8.2)
[2022-06-28 10:45] LABS: Troponin I < 0.012 ng/mL (0.01-0.034)
[2022-06-28 10:50] LABS: Procalcitonin 0.05 ng/mL (<0.5)
--- NOTE | 2022-06-28 11:20 | ED.SOB ---
HPI - SOB/Dyspnea General Chief Complaint: Shortness of Breath/Dyspnea Stated Complaint: SOB/CHEST IS HURTING Time Seen by Provider: 06/28/22 11:10 Source: patient Mode of arrival: Ambulatory Limitations: no limitations History of Present Illness HPI Narrative: Patient here with complains of shortness breath with exertion for the past 3 weeks. Patient did go to [place] this past week. Return Thursday. Was short of breath using inhaler and nebulizer in [place]. She used nebulizer 4 times a day. Denies any recent illness. No chest pain no exertional chest pain. No leg swelling. Patient does have history of COPD and CHF. 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 Patient is not on home oxygen. Has had a dry cough as well. Patient was short of breath before she left for [place]. She is in between with primary care providers. Echocardiogram below from 2020 interpretation Summary Normal sinus rhythm. Severe asymmetric LVH; interventicular septum measures 1.8 cm. Normal LV size and LV systolic function. EF is estimated at 60-65%. Stage I diastolic dysfunction. Normal chamber sizes. No significant valvular abnormalities. No LVOT obstruction. No prior study available for comparison. Recommend cardiology consult. Related Data Home Medications Medication Instructions Recorded Confirmed potassium chloride 10 mEq ea PO 05/07/21 04/23/22 tablet,extended release(part/cryst) atorvastatin 40 mg tablet 40 mg PO BEDTIME 08/14/21 04/23/22 furosemide 40 mg tablet 40 mg PO DAILY 08/14/21 04/23/22 fluoxetine 40 mg capsule 40 mg PO DAILY 12/25/21 04/23/22 fluticasone furoate 200 1 inh inhalation DAILY 12/25/21 04/23/22 mcg-vilanterol 25 mcg/dose inhalation powder (Breo Ellipta) mirtazapine 15 mg tablet 15 mg PO BEDTIME 12/25/21 04/23/22 Previous Rx's Medication Instructions Recorded cyclobenzaprine 10 mg tablet 10 mg PO BID PRN muscle spasm #60 08/27/20 tabs albuterol sulfate 90 mcg/actuation 2 puff inhalation Q4-6H PRN 02/13/21 aerosol inhaler (ProAir HFA) shortness of breath or wheezing #8.5 grams tramadol 50 mg tablet 50 mg PO BID PRN pain #60 tabs 04/12/23 methylprednisolone 4 mg tablets in See Rx Instructions PO .COMPLEX 06/28/22 a dose pack (Medrol (Tigre)) #21 ea celecoxib 200 mg capsule See Rx Instructions .Route 07/02/22 .COMPLEX #30 caps Allergies Allergy/AdvReac Type Severity Reaction Status Date / Time No Known Drug Allergies Allergy Verified 06/28/22 09:59 Review of Systems Review of Systems Narrative: GENERAL: negative chills, fatigue, malaise, fever, sweats. HEENT: negative sinus pain, ear pain, sore throat RESPIRATORY: Positive dyspnea, cough CARDIOVASCULAR: negative chest pain, palpitations GASTROINTESTINAL: negative nausea, vomiting, abdominal pain : negative dysuria, frequency, hematuria MUSCULOSKELETAL: negative muscle or bony pain SKIN: negative rash, skin lesions NEUROLOGIC: negative weakness, numbness ROS Unobtainable: All systems reviewed & are unremarkable except as noted in HPI and below Patient History Medical History Cholelithiasis COPD (chronic obstructive pulmonary disease) Facet arthropathy, lumbar HTN (hypertension) Lumbar stenosis Pulmonary nodule Sacral back pain Scoliosis Scoliosis due to degenerative disease of spine in adult patient Surgical History History of History of elbow surgery History of lung surgery Hx of foot surgery Family History Father Hypertension Diabetes mellitus Mother Hypertension Other No pertinent family history Social History marital status: household members: spouse occupational status: employed Smoking Status: Former smoker alcohol intake: never substance use type: does not use Smoking Status: Former smoker alcohol intake frequency: holidays/special occasions only Substance Use Type: does not use Exam Narrative Exam Narrative: GENERAL: in no distress, not toxic not dyspneic HEAD: Normocephalic. EYES: Pupils equal round ENT: Mucous membranes moist. NECK: Trachea midline. CARDIOVASCULAR: Regular rate and rhythm without murmurs RESPIRATORY: Clear to auscultation. Breath sounds equal bilaterally. No wheezes, rales, or rhonchi. There is diminished bibasilar lung sounds. Speaking full sentences. No respiratory distress. GASTROINTESTINAL: Abdomen soft, non-tender EXTREMITIES: No gross deformities. No ankle or pedal edema BACK: No flank tenderness. NEURO: AOx4. SKIN: Warm and dry PSYCH: Not anxious, is cooperative Initial Vital Signs Initial Vital Signs: Vital Signs Temperature 99.1 F 06/28/22 09:55 Pulse Rate 86 06/28/22 09:55 Respiratory Rate 30 H 06/28/22 09:55 Blood Pressure 175/80 H 06/28/22 09:55 Pulse Oximetry 96 06/28/22 09:55 Oxygen Delivery Method Room Air 06/28/22 09:55 Course Orders Ordered: Discontinued Medications Albuterol/Ipratropium (Albuterol/Ipratropium 3 Ml Ampul) 3 ml INH NOW ONE Stop: 06/28/22 11:19 Last Admin: 06/28/22 12:05 Dose: 3 ml Documented By: PETROS Albuterol/Ipratropium (Albuterol/Ipratropium 3 Ml Ampul) 3 ml INH NOW ONE Stop: 06/28/22 14:09 Last Admin: 06/28/22 14:09 Dose: 3 ml Documented By: PETROS Methylprednisolone (Methylprednisolone 125 Mg/2 Ml Vial) 125 mg IV NOW ONE Stop: 06/28/22 11:19 Last Admin: 06/28/22 12:10 Dose: 125 mg Documented By: ANURAG Vital Signs Vital signs: Vital Signs - 8 hr 06/28/22 09:55 06/28/22 12:06 06/28/22 14:09 Temperature 99.1 F Pulse Rate 86 78 80 Respiratory Rate 30 H 14 14 Blood Pressure 175/80 H Pulse Oximetry 96 95 94 Oxygen Delivery Method Room Air Room Air Room Air MDM - SOB/Dyspnea Lab Data 06/28/22 10:07 06/28/22 10:07 Labs: Lab Results 06/28/22 06/28/22 06/28/22 Range/Units 08:52 10:07 10:07 WBC 7.9 (4.5-11.0) X10^3/uL RBC 4.61 (4.0-5.2) X10^6/uL Hgb 13.8 (12.0-16.0) g/dL Hct 40.8 (36-46) % MCV 88.6 (80-100) fL MCH 30.0 (26-34) PG MCHC 33.8 (30-36) % RDW 14.5 (11.6-14.8) % Plt Count 247 (150-400) X10^3/uL Neut % (Auto) 74.8 (50-75) % Lymph % (Auto) 11.4 L (25-40) % [place] % (Auto) 6.3 (3-14) % Eos % (Auto) 6.4 H (2-4) % Baso % (Auto) 1.1 (0-2) % Neut # (Auto) 5900 (2152-9611) /uL Lymph # (Auto) 900 L (7771-5043) /uL [place] # (Auto) 500 (0-900) /uL Eos # (Auto) 500 H (0-450) /uL Baso # (Auto) 100 (0-100) /uL PT 11.8 (10.1-12.7) SECONDS INR 1.0 (0.9-1.3) APTT 33 (26-36) SECONDS Sodium (137-145) mmol/L Potassium (3.4-5.1) mmol/L Chloride (98-107) mmol/L Carbon Dioxide (22-32) mmol/L BUN (7-17) mg/dL Creatinine (0.52-1.04) mg/dL Estimated GFR (>60) mL/min BUN/Creatinine Ratio (6-22) Glucose (80-110) mg/dL Lactate (0.7-2.1) mmol/L Calcium (8.4-10.2) mg/dL Magnesium (1.6-2.3) mg/dL Total Bilirubin (0.2-1.3) mg/dL AST (14-36) IU/L ALT (<35) IU/L Alkaline Phosphatase (38-126) U/L Total Creatine Kinase (30-135) U/L CK-MB (CK-2) CK-MB (CK-2) Rel Index Troponin I (0.01-0.034) ng/mL NT-Pro-B Natriuret Pep (<125) pg/mL Total Protein (6.3-8.2) g/dL Albumin (3.5-5.0) g/dL Globulin (1.7-4.1) g/dL Albumin/Globulin Ratio (1.0-2.8) Lipase (23-300) U/L Procalcitonin (<0.5) ng/mL Chlamy pneumoniae PCR Not detected (Not Detect) Adenovirus (PCR) Not detected (Not Detect) B. pertussis DNA (PCR) Not detected (Not Detecte) B.parapertussis DNA PCR Not detected (Not Detecte) Coronavirus OC43 (PCR) Not detected (Not Detect) Coronavirus HKU1 (PCR) Not detected (Not Detect) Coronavirus 229E (PCR) Not detected (Not Detect) SARS-CoV-2 (PCR) Not detected (Not Detecte) Coronavirus NL63 (PCR) Not detected (Not Detect) Human Metapneumovir PCR Not detected (Not Detect) Influenza Type A (PCR) Not detected (Not Detect) Influenza Type B (PCR) Not detected (Not Detect) M. pneumoniae (PCR) Not detected (Not Detect) Parainfluenza 1 (PCR) Not detected (Not Detect) Parainfluenza 2 (PCR) Not detected (Not Detect) Parainfluenza 3 (PCR) Not detected (Not Detect) Parainfluenza 4 (PCR) Not detected (Not Detect) RSV (PCR) Not detected (Not Detect) Entero/Rhino (PCR) Not detected (Not Detect) 06/28/22 06/28/22 06/28/22 Range/Units 10:07 10:07 10:07 WBC (4.5-11.0) X10^3/uL RBC (4.0-5.2) X10^6/uL Hgb (12.0-16.0) g/dL Hct (36-46) % MCV (80-100) fL MCH (26-34) PG MCHC (30-36) % RDW (11.6-14.8) % Plt Count (150-400) X10^3/uL Neut % (Auto) (50-75) % Lymph % (Auto) (25-40) % [place] % (Auto) (3-14) % Eos % (Auto) (2-4) % Baso % (Auto) (0-2) % Neut # (Auto) (6082-1181) /uL Lymph # (Auto) (6150-7558) /uL [place] # (Auto) (0-900) /uL Eos # (Auto) (0-450) /uL Baso # (Auto) (0-100) /uL PT (10.1-12.7) SECONDS INR (0.9-1.3) APTT (26-36) SECONDS Sodium 140 (137-145) mmol/L Potassium 4.0 (3.4-5.1) mmol/L Chloride 102 (98-107) mmol/L Carbon Dioxide 30 (22-32) mmol/L BUN 18 H (7-17) mg/dL Creatinine 0.89 (0.52-1.04) mg/dL Estimated GFR > 60 (>60) mL/min BUN/Creatinine Ratio 20.2 (6-22) Glucose 105 (80-110) mg/dL Lactate 1.3 (0.7-2.1) mmol/L Calcium 9.1 (8.4-10.2) mg/dL Magnesium 2.0 (1.6-2.3) mg/dL Total Bilirubin 0.6 (0.2-1.3) mg/dL AST 28 (14-36) IU/L ALT 29 (<35) IU/L Alkaline Phosphatase 129 H (38-126) U/L Total Creatine Kinase 93 (30-135) U/L CK-MB (CK-2) TNP CK-MB (CK-2) Rel Index TNP Troponin I < 0.012 (0.01-0.034) ng/mL NT-Pro-B Natriuret Pep (<125) pg/mL Total Protein 7.7 (6.3-8.2) g/dL Albumin 4.5 (3.5-5.0) g/dL Globulin 3.2 (1.7-4.1) g/dL Albumin/Globulin Ratio 1.4 (1.0-2.8) Lipase 103 (23-300) U/L Procalcitonin 0.05 (<0.5) ng/mL Chlamy pneumoniae PCR (Not Detect) Adenovirus (PCR) (Not Detect) B. pertussis DNA (PCR) (Not Detecte) B.parapertussis DNA PCR (Not Detecte) Coronavirus OC43 (PCR) (Not Detect) Coronavirus HKU1 (PCR) (Not Detect) Coronavirus 229E (PCR) (Not Detect) SARS-CoV-2 (PCR) (Not Detecte) Coronavirus NL63 (PCR) (Not Detect) Human Metapneumovir PCR (Not Detect) Influenza Type A (PCR) (Not Detect) Influenza Type B (PCR) (Not Detect) M. pneumoniae (PCR) (Not Detect) Parainfluenza 1 (PCR) (Not Detect) Parainfluenza 2 (PCR) (Not Detect) Parainfluenza 3 (PCR) (Not Detect) Parainfluenza 4 (PCR) (Not Detect) RSV (PCR) (Not Detect) Entero/Rhino (PCR) (Not Detect) 06/28/22 Range/Units 10:07 WBC (4.5-11.0) X10^3/uL RBC (4.0-5.2) X10^6/uL Hgb (12.0-16.0) g/dL Hct (36-46) % MCV (80-100) fL MCH (26-34) PG MCHC (30-36) % RDW (11.6-14.8) % Plt Count (150-400) X10^3/uL Neut % (Auto) (50-75) % Lymph % (Auto) (25-40) % [place] % (Auto) (3-14) % Eos % (Auto) (2-4) % Baso % (Auto) (0-2) % Neut # (Auto) (9640-6436) /uL Lymph # (Auto) (1624-0778) /uL [place] # (Auto) (0-900) /uL Eos # (Auto) (0-450) /uL Baso # (Auto) (0-100) /uL PT (10.1-12.7) SECONDS INR (0.9-1.3) APTT (26-36) SECONDS Sodium (137-145) mmol/L Potassium (3.4-5.1) mmol/L Chloride (98-107) mmol/L Carbon Dioxide (22-32) mmol/L BUN (7-17) mg/dL Creatinine (0.52-1.04) mg/dL Estimated GFR (>60) mL/min BUN/Creatinine Ratio (6-22) Glucose (80-110) mg/dL Lactate (0.7-2.1) mmol/L Calcium (8.4-10.2) mg/dL Magnesium (1.6-2.3) mg/dL Total Bilirubin (0.2-1.3) mg/dL AST (14-36) IU/L ALT (<35) IU/L Alkaline Phosphatase (38-126) U/L Total Creatine Kinase (30-135) U/L CK-MB (CK-2) CK-MB (CK-2) Rel Index Troponin I (0.01-0.034) ng/mL NT-Pro-B Natriuret Pep 471 H (<125) pg/mL Total Protein (6.3-8.2) g/dL Albumin (3.5-5.0) g/dL Globulin (1.7-4.1) g/dL Albumin/Globulin Ratio (1.0-2.8) Lipase (23-300) U/L Procalcitonin (<0.5) ng/mL Chlamy pneumoniae PCR (Not Detect) Adenovirus (PCR) (Not Detect) B. pertussis DNA (PCR) (Not Detecte) B.parapertussis DNA PCR (Not Detecte) Coronavirus OC43 (PCR) (Not Detect) Coronavirus HKU1 (PCR) (Not Detect) Coronavirus 229E (PCR) (Not Detect) SARS-CoV-2 (PCR) (Not Detecte) Coronavirus NL63 (PCR) (Not Detect) Human Metapneumovir PCR (Not Detect) Influenza Type A (PCR) (Not Detect) Influenza Type B (PCR) (Not Detect) M. pneumoniae (PCR) (Not Detect) Parainfluenza 1 (PCR) (Not Detect) Parainfluenza 2 (PCR) (Not Detect) Parainfluenza 3 (PCR) (Not Detect) Parainfluenza 4 (PCR) (Not Detect) RSV (PCR) (Not Detect) Entero/Rhino (PCR) (Not Detect) Imaging Data Chest x-ray: Radiologist's Impression: PROCEDURE: XR CHEST 1V INDICATIONS: chest pain TECHNIQUE: One view of the chest was acquired. COMPARISON: [facility], , XR CHEST 2V, 03/06/2021, 15:07. FINDINGS: Surgical changes and devices: Left-sided dual-chamber pacemaker/defibrillator Lungs and pleura: Lungs are clear. No pleural effusions or pneumothorax. Mediastinum: Mediastinal contours appear normal. Heart size is normal. Atherosclerotic vascular calcification noted in the aortic arch. Bones and chest wall: No suspicious bony lesions. Overlying soft tissues appear unremarkable. IMPRESSION: No acute cardiopulmonary findings Approved by: Ian Isidro M.D. on 06/28/2022 at 10:44 CT scan - chest: Radiologist's Impression: PROCEDURE:? CT ANGIO CHEST PE PROTOCOL ? INDICATIONS:? soa ? TECHNIQUE:? After the administration of intravenous contrast, 2 mm thick sections acquired from the pulmonary apices to the posterior costophrenic angles.? MIP reformats of the arterial vasculature were utilized.? For radiation dose reduction, the following was used:? automated exposure control, adjustment of mA and/or kV according to patient size.? ? COMPARISON:? [facility], CT, CT ANGIO CHEST PE PROTOCOL, 02/10/2021, 19:43. ? FINDINGS:? Image quality:? Excellent.? ? Pulmonary arteries:? Pulmonary arteries are normal in size, and demonstrate no intraluminal filling defects to suggest central pulmonary embolism.? ? Lungs and pleura:? Prior left upper lobe partial lung resection noted with suture line.? Surgical changes in right middle lobe also stable.? Right middle lobe scarring and right lower lobe pleural thickening ? Mediastinum:? Heart size is normal, without pericardial effusion.? No mediastinal or hilar adenopathy.? Thoracic aorta is normal in caliber and enhancement. Atherosclerotic vascular calcification noted in the aortic arch. Esophagus is normal in caliber, without hiatal hernia.? Dual-chamber left-sided pacemaker ? Bones and chest wall:? No suspicious bony lesions.? Ribs and thoracic spine appear intact throughout.? Thyroid gland unremarkable.? No axillary or supraclavicular adenopathy.? ? Abdomen:? Visualized upper abdominal solid organs appear normal in the early arterial phase of enhancement.? ? IMPRESSION:? No evidence of pulmonary embolism, aortic dissection or aneurysm. ? Pulmonary scarring and surgical sequelae.? ? Minimal focal right lower lobe pleural thickening with adjacent infiltrate is slightly more prominent than the prior exam, may reflect atelectasis and or infiltrate.? Consider short-term interval follow-up ? ? ? Approved by: Ian Isidro M.D. on 06/28/2022 at 12:47? MDM Narrative Medical decision making narrative: After history and exam CBC CMP BNP troponin EKG chest x-ray viral panel ordered. DuoNeb and Solu-Medrol ordered. MDM CC: Shortness of breath Complicating co-morbidities: CHF COPD Data collected from: Patient and Medical records reviewed: No recent visits here for this complaint, echocardiogram from January 08, 2021 reviewed Differential considered: Includes but not limited to COPD exacerbation CHF exacerbation pulmonary embolism pneumonia bronchitis Exam documented above, pertinent findings include: Diminished bibasilar lung sounds Lab Test results independently reviewed as above. Pertinent findings: WBC 7.9 hemoglobin 13.8 hematocrit 40 sodium 140 potassium 4 bicarb 30 BUN 18 creatinine 0.89 lactic acid 1.3 troponin less than 0.012 procalcitonin 0.05 BNP 471 Independently reviewed EKG as above normal sinus rhythm rate [address] elevation or depression Imaging studies independently reviewed: Chest x-ray no acute process CT chest no PE no acute process Consultations: None indicated Treatments: DuoNeb Solu-Medrol Re-evaluations: 3:34 p.m.. Patient has 3 breathing treatments. Feeling much better. Walking hallway 94% room air. She states this is much better than before she arrived here. She feels comfortable discharge home. She agrees seasonal allergies may be impacting her COPD. She does have as needed oxygen at home as well. She has enough medications at home as well. Not toxic at discharge. Return precautions reviewed with her. She desires discharge home. Digital Marketing Intern at bedside. Discussion: Appropriate for discharge. Exam and laboratory studies imaging are reassuring. Nontoxic at discharge. Return precautions reviewed with her. Prescription for Medrol Dosepak provided. Diagnosis: COPD exacerbation Discharge Plan Departure Patient Disposition: Home Clinical Impression: Acute exacerbation of chronic obstructive pulmonary disease (COPD) Instructions: DI for Chronic Obstructive Pulmonary Disease Activity Restrictions/Additional Instructions: Please continue your home COPD breathing treatments. Please use your home oxygen as needed. Return immediately if worse if any questions or concerns or still short of breath after using your breathing treatments. Please see your family doctor and Pulmonary doctor next week for re-evaluation. Continue steroid pack tomorrow. Today's laboratory studies and imaging are reassuring. To start your seasonal allergy medications today. This may have impact on your COPD and make it worse. Prescriptions: New methylprednisolone [Medrol (Tigre)] 4 mg tablets,dose pack See Rx Instructions .ROUTE .COMPLEX Qty: 21 0RF Rx Instructions: orally per package directions No Action cyclobenzaprine 10 mg tablet 10 mg PO BID PRN (Reason: muscle spasm) Qty: 60 2RF tramadol 50 mg tablet 50 mg PO BID PRN (Reason: pain) Qty: 60 1RF celecoxib 200 mg capsule See Rx Instructions .ROUTE .COMPLEX Qty: 30 3RF Dose Instruction: TAKE 1 CAPSULE BY MOUTH DAILY Rx Instructions: TAKE 1 CAPSULE BY MOUTH DAILY albuterol sulfate [ProAir HFA] 90 mcg/actuation HFA aerosol inhaler 2 puff inhalation Q4-6H PRN (Reason: shortness of breath or wheezing) Qty: 8.5 0RF potassium chloride 10 mEq tablet,ER particles/crystals PO Patient Comments: TAKE 1 TABLET BY MOUTH DAILY WITH FOOD mirtazapine 15 mg tablet 15 mg PO BEDTIME Patient Comments: TAKE 1 TABLET BY MOUTH EVERY NIGHT fluoxetine 40 mg capsule 40 mg PO DAILY Patient Comments: TAKE 1 CAPSULE BY MOUTH DAILY fluticasone furoate-vilanterol [Breo Ellipta] 200-25 mcg/dose blister with device 1 inh inhalation DAILY atorvastatin 40 mg tablet 40 mg PO BEDTIME furosemide 40 mg tablet 40 mg PO DAILY Referrals: Miscellaneous,Doctor, MD [Primary Care Provider] - Stand Alone Forms: Patient Portal/API
[2022-06-28 11:32] LABS: Adenovirus Not Detected (Not Detect); B. parapertussis Not Detected (Not Detecte); Bordetella pertussis Not Detected (Not Detecte); Chlamydophila pneumoniae Not Detected (Not Detect); Coronavirus 229E Not Detected (Not Detect); Coronavirus HKU1 Not Detected (Not Detect); Coronavirus NL 63 Not Detected (Not Detect); Coronavirus OC43 Not Detected (Not Detect); Human Metapneumovirus Not Detected (Not Detect); Human Rhinovirus/Enterovirus Not Detected (Not Detect); Influenza A Not Detected (Not Detect); Influenza B Not Detected (Not Detect); Mycoplasma pneumoniae Not Detected (Not Detect); Parainfluenza Virus 1 Not Detected (Not Detect); Parainfluenza Virus 2 Not Detected (Not Detect); Parainfluenza Virus 3 Not Detected (Not Detect); Parainfluenza Virus 4 Not Detected (Not Detect); Respiratory Syncytial Virus Not Detected (Not Detect); SARS- CoV-2 Not Detected (Not Detecte)
[2022-06-28 11:52] LABS: NT-proBNP (BNP-Adult 18+) 471 pg/mL (<125)
[2022-06-28] MEDS: ALBUTEROL/IPRATROPIUM 3 ML AMPUL INH ×2 (12:05→14:09)
[2022-06-28] MEDS: methylPREDNISolone 125 MG/2 ML VIAL IV (12:10)
--- NOTE | 2022-06-28 12:12 | DI.CT.S_ITS ---
PROCEDURE: CT ANGIO CHEST PE PROTOCOL INDICATIONS: soa TECHNIQUE: After the administration of intravenous contrast, 2 mm thick sections acquired from the pulmonary apices to the posterior costophrenic angles. MIP reformats of the arterial vasculature were utilized. For radiation dose reduction, the following was used: automated exposure control, adjustment of mA and/or kV according to patient size. COMPARISON: [facility], CT, CT ANGIO CHEST PE PROTOCOL, 02/10/2021, 19:43. FINDINGS: Image quality: Excellent. Pulmonary arteries: Pulmonary arteries are normal in size, and demonstrate no intraluminal filling defects to suggest central pulmonary embolism. Lungs and pleura: Prior left upper lobe partial lung resection noted with suture line. Surgical changes in right middle lobe also stable. Right middle lobe scarring and right lower lobe pleural thickening Mediastinum: Heart size is normal, without pericardial effusion. No mediastinal or hilar adenopathy. Thoracic aorta is normal in caliber and enhancement. Atherosclerotic vascular calcification noted in the aortic arch. Esophagus is normal in caliber, without hiatal hernia. Dual-chamber left-sided pacemaker Bones and chest wall: No suspicious bony lesions. Ribs and thoracic spine appear intact throughout. Thyroid gland unremarkable. No axillary or supraclavicular adenopathy. Abdomen: Visualized upper abdominal solid organs appear normal in the early arterial phase of enhancement. IMPRESSION: No evidence of pulmonary embolism, aortic dissection or aneurysm. Pulmonary scarring and surgical sequelae. Minimal focal right lower lobe pleural thickening with adjacent infiltrate is slightly more prominent than the prior exam, may reflect atelectasis and or infiltrate. Consider short-term interval follow-up Approved by: Ian Isidro M.D. on 06/28/2022 at 12:47
--- NOTE | 2022-06-28 15:43 | PC.NURSE ---
ambulated around ER. oxygen levels maintained at 92% pt does not feel SOB. remarked difference from ambulation to bathroom earlier in stay which caused SOB.
== END 2022-06-28 15:57 | disposition home or self-care (01) ==
PROVIDERS: Emergency Provider Emergency Medicine
DX: J44.1 Chronic obstructive pulmonary disease with (acute) exacerbation (principal); R07.9 Chest pain, unspecified; Z79.899 Other long term (current) drug therapy; Z20.822 Contact with and (suspected) exposure to COVID-19
CPT/HCPCS: 36415; 71045; 71275; 80053; 82550; 83605; 83690; 83735; 83880; 84145; 84484; 85025; 85610; 85730; 87040; 87633; 93005; 93010; 94640; 96374; 99284; J2930; Q9967

== ENCOUNTER 2022-12-04 14:15 | Outpatient (RCR) | payer OTHER, SELFPAY | END 2022-12-04 16:15 | LOC: PUL 14:15 | PROVIDERS: Referring Provider Physical Medicine & Rehabilitation; Visit Provider Physical Medicine & Rehabilitation | DX: J44.9 Chronic obstructive pulmonary disease, unspecified (principal); Z98.890 Other specified postprocedural states | CPT/HCPCS: 94626 ==

== ENCOUNTER → 2023-02-25 15:16 | Outpatient (CLI) | payer OTHER, SELFPAY ==
--- NOTE | 2023-02-25 15:17 | DI.MG.S_ITS ---
BILATERAL DIGITAL SCREENING MAMMOGRAM 3D/2D WITH CAD: 02/25/2023 CLINICAL: Routine screening. Comparison is made to exams dated: 10/31/2011 mammogram and 10/13/2011 mammogram - [facility]. There are scattered areas of fibroglandular density in both breasts (category b / 25%-50% glandular tissue). Current study was also evaluated with a Computer Aided Detection (CAD) system. There are new grouped calcifications in the left breast posterior depth medial region seen on the craniocaudal view only. There also is a cluster of asymmetries in the left breast posterior depth superior region seen on the mediolateral oblique view only. This is more prominent. No other significant masses, calcifications, or other findings are seen in either breast. IMPRESSION: INCOMPLETE: NEEDS ADDITIONAL IMAGING EVALUATION The new grouped calcifications in the left breast posterior depth medial region seen on the craniocaudal view only are indeterminate. Additional views are recommended. The cluster of asymmetries in the left breast posterior depth superior region seen on the mediolateral oblique view only resembles a lymph node and is indeterminate. Additional views with possible ultrasound are recommended. Based on the Tyrer Cuzick model (a risk assessment model) the patient's lifetime risk is 4.3% and her 10 year risk is 2.1%. According to the ACR, ACS, and NCCN guidelines, an annual breast MRI exam along with mammogram is recommended if the patient's lifetime risk is 20% or greater. This exam was interpreted at Station ID: [id number]. NOTE: For mammograms, a report in lay terms will be sent to the patient. Approximately 15% of breast malignancies will not be visualized mammographically. In the management of a palpable breast mass, a negative mammogram must not discourage biopsy of a clinically suspicious lesion. Electronically Signed By: Bogdan Dumont M.D. lc/:02/26/2023 08:15:10 letter sent: Additional Imaging Needed ACR BI-RADS Category 0: Incomplete [id number]
== END ==
PROVIDERS: PCP Student in an Organized Health Care Education/Training Program; Referring Provider Student in an Organized Health Care Education/Training Program; Visit Provider Student in an Organized Health Care Education/Training Program
DX: Z12.31 Encounter for screening mammogram for malignant neoplasm of breast (principal)
CPT/HCPCS: 77063; 77067

== ENCOUNTER → 2023-03-10 08:38 | Outpatient (CLI) | payer OTHER, SELFPAY ==
--- NOTE | 2023-03-10 08:40 | DI.MG.S_ITS ---
UNILATERAL LEFT DIGITAL DIAGNOSTIC MAMMOGRAM 3D/2D WITH ADDITIONAL VIEWS: 03/10/2023 CLINICAL: Additional evaluation requested from prior study. Comparison is made to exams dated: 02/25/2023 mammogram - [facility], 10/31/2011 mammogram, and 10/13/2011 mammogram - [facility]. There are scattered areas of fibroglandular density in the left breast (category b / 25%-50% glandular tissue). There is a cluster of oval asymmetries in the left breast posterior depth superior region seen on the mediolateral oblique view only. This is not confirmed in additional views. It appears less prominent and decreased in size. There also are approximately scattered 2 to 3 benign punctate round calcifications in the left breast posterior depth medial region seen on the craniocaudal view only. This is less prominent and not grouped in appearance on today's images. No other significant masses or calcifications are seen in the breast. IMPRESSION: INCOMPLETE: NEEDS ADDITIONAL IMAGING EVALUATION The cluster of oval asymmetries in the left breast posterior depth superior region seen on the mediolateral oblique view only resembles a lymph node, small cyst, or tortuous segment of a vessel and is indeterminate. An ultrasound is recommended for further evaluation and is scheduled to immediately follow this examination. Based on the Tyrer Cuzick model (a risk assessment model) the patient's lifetime risk is 4.3% and her 10 year risk is 2.1%. According to the ACR, ACS, and NCCN guidelines, an annual breast MRI exam along with mammogram is recommended if the patient's lifetime risk is 20% or greater. This exam was interpreted at Station ID: [id number]. NOTE: For mammograms, a report in lay terms will be sent to the patient. Approximately 15% of breast malignancies will not be visualized mammographically. In the management of a palpable breast mass, a negative mammogram must not discourage biopsy of a clinically suspicious lesion. Electronically Signed By: Nirav Ward M.D. aty/:03/10/2023 10:33:34 ACR BI-RADS Category 0: Incomplete 3340F
--- NOTE | 2023-03-10 08:40 | DI.US.S_ITS ---
ULTRASOUND OF LEFT BREAST: 03/10/2023 CLINICAL: Patient returns today to evaluate a focal asymmetry in the left breast. Comparison is made to exams dated: 03/10/2023 mammogram, 02/25/2023 mammogram - [facility], and 10/31/2011 mammogram - [facility]. Color flow and real-time ultrasound of the left breast were performed. Velarde scale images of the real-time examination were reviewed. No significant abnormalities were seen sonographically in the left breast. IMPRESSION: NEGATIVE There is no sonographic evidence of malignancy. There is no abnormality seen in the left breast to correspond with the mammography finding. A 1 year screening mammogram is recommended. Findings and recommendations were conveyed to the patient during today's evaluation. This exam was interpreted at Station ID: [id number]. Electronically Signed By: Nirav Ward M.D. aty/:03/10/2023 10:34:12 letter sent: Normal Exam Ultrasound BI-RADS: 1 Negative
== END ==
PROVIDERS: PCP Student in an Organized Health Care Education/Training Program; Referring Provider Student in an Organized Health Care Education/Training Program; Visit Provider Student in an Organized Health Care Education/Training Program
DX: N63.20 Unspecified lump in the left breast, unspecified quadrant; R92.8 Other abnormal and inconclusive findings on diagnostic imaging of breast
CPT/HCPCS: 76642; 77065; G0279

== ENCOUNTER 2023-04-08 09:42 | Emergency (ER) | payer OTHER, SELFPAY ==
[2023-04-08] VITALS (41 sets, daily range): BP systolic 90–148; BP diastolic 44–75; PULSE 70–97; RESP 23–47; TEMP 36.7; O2SAT 87–99; BMI 24.1
--- NOTE | 2023-04-08 09:52 | ED_ITS ---
HPI - SOB/Dyspnea General Chief Complaint: Shortness of Breath/Dyspnea Stated Complaint: cold in lungs sob Time Seen by Provider: 04/08/23 09:48 Source: patient, RN notes reviewed and old records reviewed Mode of arrival: Family Vehicle Limitations: no limitations History of Present Illness HPI Narrative: 67-year-old female with history of COPD on 3 L O2 PRN at home, history of lung cancer with bilateral partial lobectomies, dyslipidemia, degenerative disc disease who presents with complaint of increasing shortness of breath. Patient states her had upper respiratory symptoms last week she developed symptoms on Thursday the 05 of April and has had increasing shortness of breath, wheezing. She states no fevers but she has been taking Tylenol and Advil regularly. States she has had cough with productive kingsley/brown sputum. She is felt very tight and wheezy. She has been using nebulizers 4 times daily with minimal improvement. She does use a steroid inhaler regularly. Patient states no nausea or vomiting. She is little bit of pain with cough that is substernal. Patient states no new swelling in extremities. She had some diarrhea like stools with lunch and dinner last night but no black or bloody stools. No syncope. Patient states she has using her home O2 around the clock for the past several days. Patient states no recent steroid use but has had them in the past. She is on atorvastatin, fluoxetine, Breo Ellipta draw and Ventolin. States she has had prior partial lobectomies for lung cancer bilaterally. Patient states no known drug allergies. Former smoker, occasional alcohol, no recreational drugs. Related Data Home Medications Medication Instructions Recorded Confirmed potassium chloride 10 mEq ea PO 05/07/21 02/02/23 tablet,extended release(part/cryst) atorvastatin 40 mg tablet 40 mg PO BEDTIME 08/14/21 02/02/23 furosemide 40 mg tablet 40 mg PO DAILY 08/14/21 02/02/23 fluticasone furoate 200 1 inh inhalation DAILY 12/25/21 02/02/23 mcg-vilanterol 25 mcg/dose inhalation powder (Breo Ellipta) mirtazapine 30 mg tablet 30 mg PO BEDTIME 08/18/22 02/02/23 sacubitril 49 mg-valsartan 51 mg 1 tab PO BID 08/18/22 02/02/23 tablet (Entresto) Previous Rx's Medication Instructions Recorded albuterol sulfate 90 mcg/actuation 2 puff inhalation Q4-6H PRN 02/13/21 aerosol inhaler (ProAir HFA) shortness of breath or wheezing #8.5 grams tramadol 50 mg tablet 50 mg PO BID PRN pain #60 tabs 06/18/22 celecoxib 200 mg capsule See Rx Instructions .Route 08/18/22 .COMPLEX #90 caps cyclobenzaprine 10 mg tablet 10 mg PO BID PRN muscle spasm #60 08/18/22 tabs fluoxetine 40 mg capsule 40 mg PO DAILY #90 caps 02/02/23 sodium,potassium,mag sulfates 17.5 See Rx Instructions PO .COMPLEX 03/04/23 gram-3.13 gram-1.6 gram oral soln #354 mL (Suprep Bowel Prep Kit) prednisone 10 mg tablets in a dose See Rx Instructions PO .COMPLEX 04/08/23 pack #21 ea benzonatate 200 mg capsule 200 mg PO TID PRN cough #30 caps 04/10/23 Allergies Allergy/AdvReac Type Severity Reaction Status Date / Time No Known Drug Allergies Allergy Verified 04/08/23 09:50 Review of Systems Review of Systems ROS Unobtainable: All systems reviewed & are unremarkable except as noted in HPI and below Patient History Medical History Lumbar disc disease Chronic back pain Chicken pox Cardiomyopathy Depression (~2018) Cholelithiasis Sacral back pain Lumbar stenosis Facet arthropathy, lumbar Scoliosis due to degenerative disease of spine in adult patient Scoliosis HTN (hypertension) COPD (chronic obstructive pulmonary disease) (~2018) Pulmonary nodule Surgical History Anesthesia History of cardiac defibrillator placement (~2022) History of cholecystectomy (~2020) History of lung surgery (~2019) Hx of foot surgery History of elbow surgery History of Family History Father Hypertension Diabetes mellitus History of heart disease Mother Hypertension Stroke Sister History of heart disease Sister History of heart disease Lung disease Other No pertinent family history Social History marital status: household members: spouse occupational status: employed Smoking Status: Former smoker alcohol intake: never substance use type: does not use Smoking Status: Former smoker alcohol intake frequency: holidays/special occasions only Substance Use Type: does not use Exam Narrative Exam Narrative: GENERAL: Alert and oriented x three, elderly female in moderate distress. HEENT: Head normocephalic, atraumatic, EOMI, pupils reactive, no nasal congestion, face symmetric, moist mucous membranes NECK: Supple, full range of motion CARDIOVASCULAR: Regular rate and rhythm without murmurs, rubs or gallops. No JVD. No edema bilateral lower extremities. RESPIRATORY: Breath sounds decreased bilaterally, scant wheezes in the bases, no rales or rhonchi. Positive for mild tachypnea. No accessory muscle use. Patient has a little bit of pursed lip breathing. ABDOMEN: Soft, nontender. Normoactive bowel sounds all 4 quadrants. No guarding or rebound, rigidity, no mass : No CVA tenderness EXTREMITIES: Normal range of motion, no clubbing or edema bilateral lower extremity. Neurovascularly intact NEUROLOGICAL: Cranial nerves II through XII grossly intact. Moving all extremities SKIN: Warm, dry, no petechiae, no rashes or lesions. Initial Vital Signs Initial Vital Signs: Vital Signs Temperature 98.1 F 04/08/23 09:43 Pulse Rate 87 04/08/23 09:43 Respiratory Rate 35 H 04/08/23 09:43 Blood Pressure 134/75 04/08/23 09:43 Pulse Oximetry 89 L 04/08/23 09:43 Oxygen Delivery Method Room Air 04/08/23 09:43 Course Orders Ordered: Discontinued Medications Albuterol/Ipratropium (Albuterol/Ipratropium 3 Ml Ampul) 3 ml INH Q20M [facility] Stop: 04/08/23 10:56 Last Admin: 04/08/23 10:58 Dose: 3 ml Documented By: Admin: 04/08/23 10:29 Dose: 3 ml Documented By: Admin: 04/08/23 10:09 Dose: 3 ml Documented By: CHEMA Sodium Chloride (Normal Saline 0.9%) 1,000 mls @ 1,000 mls/hr IV BOLUS ONE Stop: 04/08/23 13:36 Last Infusion: 04/08/23 13:46 Dose: Infused Documented By: Admin: 04/08/23 12:47 Dose: 1,000 mls/hr Documented By: FORD Magnesium Oxide (Magnesium Oxide 400 Mg Tablet) 400 mg PO NOW ONE Stop: 04/08/23 14:10 Last Admin: 04/08/23 14:29 Dose: 400 mg Documented By: RU Methylprednisolone (Methylprednisolone 125 Mg/2 Ml Vial) 125 mg IV NOW ONE Stop: 04/08/23 10:07 Last Admin: 04/08/23 10:12 Dose: 125 mg Documented By: HIRAM Potassium Chloride (Potassium Chloride 20 Meq Tab) 40 meq PO NOW ONE Stop: 04/08/23 12:47 Last Admin: 04/08/23 12:52 Dose: 40 meq Documented By: FORD Vital Signs Vital signs: Vital Signs - 8 hr 04/08/23 09:43 04/08/23 09:46 04/08/23 09:48 Temperature 98.1 F Pulse Rate 87 70 70 Respiratory Rate 35 H Blood Pressure 134/75 Pulse Oximetry 89 L 87 L Oxygen Delivery Method Room Air Room Air Oxygen Flow Rate 04/08/23 09:48 04/08/23 10:00 04/08/23 10:00 Temperature Pulse Rate 91 H Respiratory Rate 47 H Blood Pressure 138/69 145/63 H Pulse Oximetry 99 Oxygen Delivery Method Aerosol Mask Oxygen Flow Rate 10 04/08/23 10:29 04/08/23 10:30 04/08/23 10:31 Temperature Pulse Rate 84 Respiratory Rate 35 H Blood Pressure 97/53 L Pulse Oximetry 98 98 Oxygen Delivery Method Nasal Cannula Oxygen Flow Rate 2 04/08/23 10:31 04/08/23 10:59 04/08/23 11:00 Temperature Pulse Rate 82 84 Respiratory Rate 35 H 23 Blood Pressure Pulse Oximetry 97 94 95 Oxygen Delivery Method Nasal Cannula Room Air Oxygen Flow Rate 2 04/08/23 11:00 04/08/23 11:14 04/08/23 11:14 Temperature Pulse Rate 92 H Respiratory Rate 42 H Blood Pressure 108/59 L 108/52 L Pulse Oximetry 94 Oxygen Delivery Method Oxygen Flow Rate 04/08/23 11:22 04/08/23 11:22 04/08/23 11:30 Temperature Pulse Rate 87 86 Respiratory Rate 40 H 37 H Blood Pressure 118/61 Pulse Oximetry 95 94 Oxygen Delivery Method Oxygen Flow Rate 04/08/23 11:30 04/08/23 11:45 04/08/23 11:45 Temperature Pulse Rate 85 Respiratory Rate 30 H Blood Pressure 104/58 L 109/54 L Pulse Oximetry 96 Oxygen Delivery Method Oxygen Flow Rate 04/08/23 12:00 04/08/23 12:00 04/08/23 12:15 Temperature Pulse Rate 83 83 Respiratory Rate 35 H 37 H Blood Pressure 108/54 L Pulse Oximetry 94 94 Oxygen Delivery Method Oxygen Flow Rate 04/08/23 12:15 04/08/23 12:19 04/08/23 12:19 Temperature Pulse Rate 84 Respiratory Rate 27 H Blood Pressure 94/44 L 96/51 L Pulse Oximetry 94 Oxygen Delivery Method Oxygen Flow Rate 04/08/23 12:20 04/08/23 12:20 04/08/23 12:30 Temperature Pulse Rate 83 83 Respiratory Rate 34 H 28 H Blood Pressure 90/51 L Pulse Oximetry 94 94 Oxygen Delivery Method Oxygen Flow Rate 04/08/23 12:40 04/08/23 12:40 04/08/23 13:00 Temperature Pulse Rate 82 86 Respiratory Rate 40 H 23 Blood Pressure 98/54 L Pulse Oximetry 94 95 Oxygen Delivery Method Oxygen Flow Rate 04/08/23 13:00 04/08/23 13:21 04/08/23 13:27 Temperature Pulse Rate 86 90 Respiratory Rate 42 H 40 H Blood Pressure 107/51 L Pulse Oximetry 97 97 Oxygen Delivery Method Oxygen Flow Rate 04/08/23 13:29 04/08/23 13:29 04/08/23 13:30 Temperature Pulse Rate 89 89 Respiratory Rate 34 H 32 H Blood Pressure 113/55 L Pulse Oximetry 97 97 Oxygen Delivery Method Room Air Oxygen Flow Rate 04/08/23 13:30 Temperature Pulse Rate Respiratory Rate Blood Pressure 110/59 L Pulse Oximetry Oxygen Delivery Method Oxygen Flow Rate MDM - SOB/Dyspnea Lab Data 04/08/23 09:50 04/08/23 09:50 Labs: Lab Results 04/08/23 04/08/23 04/08/23 Range/Units 09:50 10:00 12:46 WBC 11.7 H (4.5-11.0) X10^3/uL RBC 4.56 (4.0-5.2) X10^6/uL Hgb 13.4 (12.0-16.0) g/dL Hct 40.2 (36-46) % MCV 88.1 (80-100) fL MCH 29.3 (26-34) PG MCHC 33.2 (30-36) % RDW 14.5 (11.6-14.8) % Plt Count 224 (150-400) X10^3/uL Neut % (Auto) 85.0 H (50-75) % Lymph % (Auto) 9.1 L (25-40) % Hayes % (Auto) 5.4 (3-14) % Eos % (Auto) 0.2 L (2-4) % Baso % (Auto) 0.3 (0-2) % Neut # (Auto) 64830 H (8262-0117) /uL Lymph # (Auto) 1100 (5882-5988) /uL Hayes # (Auto) 600 (0-900) /uL Eos # (Auto) 0 (0-450) /uL Baso # (Auto) 0 (0-100) /uL PT 12.0 (9.4-12.5) SECONDS INR 1.0 (0.9-1.3) Sodium 139 (137-145) mmol/L Potassium 3.5 (3.4-5.1) mmol/L Chloride 104 (98-107) mmol/L Carbon Dioxide 26 (22-32) mmol/L BUN 15 (7-17) mg/dL Creatinine 0.72 (0.52-1.04) mg/dL Estimated GFR > 60 (>60) mL/min BUN/Creatinine Ratio 20.8 (6-22) Glucose 160 H (80-110) mg/dL Lactate 1.7 (0.7-2.1) mmol/L Calcium 9.0 (8.4-10.2) mg/dL Magnesium 1.8 (1.6-2.3) mg/dL Total Bilirubin 0.7 (0.2-1.3) mg/dL AST 41 H (14-36) IU/L ALT 33 (<35) IU/L Alkaline Phosphatase 175 H (38-126) U/L Troponin I 0.013 (0.01-0.034) ng/mL NT-Pro-B Natriuret Pep 1450 H (<125) pg/mL Total Protein 7.5 (6.3-8.2) g/dL Albumin 4.1 (3.5-5.0) g/dL Globulin 3.4 (1.7-4.1) g/dL Albumin/Globulin Ratio 1.2 (1.0-2.8) Chlamy pneumoniae PCR Not detected (Not Detect) Adenovirus (PCR) Not detected (Not Detect) B.parapertussis DNA PCR Not detected (Not Detecte) Coronavirus OC43 (PCR) Not detected (Not Detect) Coronavirus HKU1 (PCR) Not detected (Not Detect) Coronavirus 229E (PCR) Not detected (Not Detect) SARS-CoV-2 (PCR) Not detected (Not Detecte) Coronavirus NL63 (PCR) Not detected (Not Detect) Human Metapneumovir PCR Not detected (Not Detect) Influ A (H1N1 Seas) PCR Detected H (Not Detect) Influenza Type B (PCR) Not detected (Not Detect) M. pneumoniae (PCR) Not detected (Not Detect) Parainfluenza 1 (PCR) Not detected (Not Detect) Parainfluenza 2 (PCR) Not detected (Not Detect) Parainfluenza 3 (PCR) Not detected (Not Detect) Parainfluenza 4 (PCR) Not detected (Not Detect) RSV (PCR) Not detected (Not Detect) Entero/Rhino (PCR) Not detected (Not Detect) Imaging Data Chest x-ray: Radiologist's Impression: [address] [address] XRay Report Signed Patient: Martine Conde MR#: [id number] : 1955 Acct:[id number] Age/Sex: 67 / F Date of Service: 04/08/23 Loc: ED Accession Number: [id number] Procedure: XR chest 1V Ordering Provider: Jessi Austin D.O. PROCEDURE: XR CHEST 1V INDICATIONS: Shortness of breath TECHNIQUE: One view of the chest was acquired. COMPARISON: [facility], , XR CHEST 1V, 06/28/2022, 10:19. FINDINGS: Surgical changes and devices: Left-sided pacer. Lungs and pleura: Lungs are clear. No pleural effusions or pneumothorax. Mediastinum: Mediastinal contours appear normal. Heart size is normal. Bones and chest wall: No suspicious bony lesions. Overlying soft tissues appear unremarkable. IMPRESSION: No acute cardiopulmonary abnormality is seen. Dictated by: Dale Mccarty M.D. on 04/08/2023 at 11:09 Approved by: Dale Mccarty M.D. on 04/08/2023 at 11:19 ECG Data Attestation: I personally reviewed and interpreted this ECG as follows: Prior ECG tracings: available for review Interpretation: Sinus rhythm with premature atrial complexes. Rate of 90 NM 146 QRS 82 QTC of 472. No acute ST elevation. Does not appear to have any significant depression appreciated comparison to prior from 06/28/22. MDM Narrative Medical decision making narrative: This is a 67-year-old female with known history of COPD, prior lung cancer on PRN home O2 with recent likely viral upper respiratory infection worsening her COPD. Patient is 88-89% on room air but uses home O2. Slightly tachypneic but otherwise appropriate vitals afebrile. Plan for respiratory panel, chest x-ray, EKG and labs. Patient given Solu-Medrol 125 mg and neb x3 Patient had a 22nd run of wide complex tachycardia but rate was approximately 80-100. She has not AICD did not fire. She felt a little dizzy. She was receiving nebulized albuterol during this. She had several back to back. Patient has not AICD plan to interrogate. She is not on any medications for rate or rhythm control currently. Spoke with Dr. Ovalle [facility]. She does note patient has AICD is primary prevention for hypertrophic cardiomyopathy. She is on atorvastatin, Entresto, 41/51, Lasix 40 mg daily potassium. She would recommend holding her Entresto for pressures are running low, would have a goal potassium of 4 or higher at goal Mag of 2 or higher. But otherwise states unexpected for her to not have firing of her AICD. Or that it would recognize as a V-tach. Did discuss this occurred while she was receiving quite a bit of albuterol. Discharge Plan Departure Patient Disposition: Left Against Medical Advice Clinical Impression: Acute exacerbation of chronic obstructive pulmonary disease, Influenza A Activity Restrictions/Additional Instructions: Please follow-up with your physician for recheck. You would probably benefit from observation overnight as you have elected to return home please return if you are feeling worse. Take steroids until completed. Continue your nebs every 4 hours as needed. I did speak with your specimen transporter please stop your Entresto until your blood pressures more stable. Please follow-up to have her labs rechecked as well to make sure your potassium and magnesium are optimized with the potassium above 4 and magnesium level above 2. Prescription for your steroids was sent to [facility] in [place]. Please return for new or worsening symptoms, increasing shortness of breath, lightheadedness, increasing swelling in her extremities or other new or concerning changes. Prescriptions: New prednisone 10 mg tablets,dose pack See Rx Instructions .ROUTE .COMPLEX Qty: 21 0RF Rx Instructions: Take 6 tablets p.o. x1, then 5 tablets p.o. x1, then 4 tablets p.o. x1, then 3 tablets p.o. x1, 2 tablets p.o. x1, 1 tablet p.o. x1 No Action fluoxetine 40 mg capsule 40 mg PO DAILY Qty: 90 3RF tramadol 50 mg tablet 50 mg PO BID PRN (Reason: pain) Qty: 60 1RF sodium,potassium,mag sulfates [Suprep Bowel Prep Kit] 17.5-3.13-1.6 gram recon soln See Rx Instructions PO .COMPLEX Qty: 354 0RF Rx Instructions: TAKE DIRECTED BY PHYSICIAN. benzonatate 200 mg capsule 200 mg PO TID PRN (Reason: cough) Qty: 30 0RF albuterol sulfate [ProAir HFA] 90 mcg/actuation HFA aerosol inhaler 2 puff inhalation Q4-6H PRN (Reason: shortness of breath or wheezing) Qty: 8.5 0RF potassium chloride 10 mEq tablet,ER particles/crystals PO Patient Comments: TAKE 1 TABLET BY MOUTH DAILY WITH FOOD fluticasone furoate-vilanterol [Breo Ellipta] 200-25 mcg/dose blister with device 1 inh inhalation DAILY atorvastatin 40 mg tablet 40 mg PO BEDTIME furosemide 40 mg tablet 40 mg PO DAILY Entresto 49-51 mg tablet 1 tab PO BID Patient Comments: TAKE 1 TABLET BY MOUTH TWICE DAILY mirtazapine 30 mg tablet 30 mg PO BEDTIME Patient Comments: TAKE 1 TABLET BY MOUTH EVERY NIGHT celecoxib 200 mg capsule See Rx Instructions .ROUTE .COMPLEX Qty: 90 3RF Dose Instruction: TAKE 1 CAPSULE BY MOUTH DAILY Rx Instructions: TAKE 1 CAPSULE BY MOUTH DAILY cyclobenzaprine 10 mg tablet 10 mg PO BID PRN (Reason: muscle spasm) Qty: 60 2RF Referrals: Tegan Desir MD [Primary Care Provider] - Stand Alone Forms: Patient Portal/API, Against Medical Advice
[2023-04-08 10:02] LABS: Add Manual Diff / Slide Review NO; Basophils Absolute Auto 0 /uL (0-100); Basophils Percent Auto 0.3 % (0-2); Eosinophils Absolute Auto 0 /uL (0-450); Eosinophils Percent Auto 0.2 % (2-4); Hematocrit 40.2 % (36-46); Hemoglobin 13.4 g/dL (12.0-16.0); Lymphocytes Absolute Auto 1100 /uL (1100-4500); Lymphocytes Percent Auto 9.1 % (25-40); Mean Corpuscular HGB Conc 33.2 % (30-36); Mean Corpuscular Hemoglobin 29.3 PG (26-34); Mean Corpuscular Volume 88.1 fL (80-100); Monocytes Absolute Auto 600 /uL (0-900); Monocytes Percent Auto 5.4 % (3-14); Neutrophils Absolute Auto 10000 /uL (1500-7000); Platelet Count 224 X10^3/uL (150-400); Red Blood Cell Count 4.56 X10^6/uL (4.0-5.2); Red Cell Distribution Width 14.5 % (11.6-14.8); White Blood Cell Count 11.7 X10^3/uL (4.5-11.0)
[2023-04-08] MEDS: ALBUTEROL/IPRATROPIUM 3 ML AMPUL INH ×3 (10:09→10:58)
[2023-04-08] MEDS: methylPREDNISolone 125 MG/2 ML VIAL IV (10:12)
[2023-04-08 10:23] LABS: Alanine Aminotransferase 33 IU/L (<35); Albumin 4.1 g/dL (3.5-5.0); Albumin Globulin Ratio 1.2 (1.0-2.8); Alkaline Phosphatase 175 U/L (38-126); Aspartate Aminotransferase 41 IU/L (14-36); BUN Creatinine Ratio 20.8 (6-22); Bilirubin Total 0.7 mg/dL (0.2-1.3); Blood Urea Nitrogen 15 mg/dL (7-17); Carbon Dioxide 26 mmol/L (22-32); Chloride 104 mmol/L (98-107); Estimated Glomerular Filt Rate > 60 mL/min (>60); Globulin 3.4 g/dL (1.7-4.1); Glucose 160 mg/dL (80-110); HEMOLYSIS < 15 (0-50); Lactate (Lactic Acid) 1.7 mmol/L (0.7-2.1); Potassium 3.5 mmol/L (3.4-5.1); Sodium 139 mmol/L (137-145); Total Protein 7.5 g/dL (6.3-8.2)
[2023-04-08 10:33] LABS: NT-proBNP (BNP-Adult 18+) 1450 pg/mL (<125); Troponin I 0.013 ng/mL (0.01-0.034)
[2023-04-08 11:00] LABS: Adenovirus Not Detected (Not Detect); B. parapertussis Not Detected (Not Detecte); Bordetella pertussis Not Detected (Not Detect); Chlamydophila pneumoniae Not Detected (Not Detect); Coronavirus 229E Not Detected (Not Detect); Coronavirus HKU1 Not Detected (Not Detect); Coronavirus NL 63 Not Detected (Not Detect); Coronavirus OC43 Not Detected (Not Detect); Human Metapneumovirus Not Detected (Not Detect); Human Rhinovirus/Enterovirus Not Detected (Not Detect); Influenza A H1-2009 Detected (Not Detect); Influenza B Not Detected (Not Detect); Mycoplasma pneumoniae Not Detected (Not Detect); Parainfluenza Virus 1 Not Detected (Not Detect); Parainfluenza Virus 2 Not Detected (Not Detect); Parainfluenza Virus 3 Not Detected (Not Detect); Parainfluenza Virus 4 Not Detected (Not Detect); Respiratory Syncytial Virus Not Detected (Not Detect); SARS- CoV-2 Not Detected (Not Detecte)
--- NOTE | 2023-04-08 11:06 | PC.NURSE ---
Pt had a 20-30 second run of Vtach. Rate was under 100. Dr Austin and other RNs at bedside, pt put on defib pads and code cart was brought to the bedside. Pt reports dizziness during this episode. Report given to JOVON Aguirre
--- NOTE | 2023-04-08 11:44 | PC.NURSE ---
patient [employer] ICD interrogated. Patient reports breathing feels better after treatments. Denies any current chest pain, reports intermittent dizziness. Which is gone at this time.
[2023-04-08] MEDS: SODIUM CHLORIDE 0.9% 1,000 ML 1000 ML IV (12:47)
[2023-04-08] MEDS: POTASSIUM CHLORIDE 20 MEQ TAB 40 MEQ PO (12:52)
[2023-04-08 12:59] LABS: Magnesium 1.8 mg/dL (1.6-2.3)
[2023-04-08] MEDS: MAGNESIUM OXIDE 400 MG TABLET PO (14:29)
== END 2023-04-08 15:37 | disposition left against medical advice (07) ==
PROVIDERS: Emergency Provider Emergency Medicine; PCP Student in an Organized Health Care Education/Training Program
DX: J44.1 Chronic obstructive pulmonary disease with (acute) exacerbation (principal); J10.1 Influenza due to other identified influenza virus with other respiratory manifestations; Z20.822 Contact with and (suspected) exposure to COVID-19
CPT/HCPCS: 36415; 71045; 80053; 83605; 83735; 83880; 84484; 85025; 85610; 87633; 93005; 94640; 96361; 96374; 99284; 99285; J2930

== ENCOUNTER 2023-04-12 07:59 | Emergency (ER) | payer OTHER, SELFPAY ==
[2023-04-12] VITALS (8 sets, daily range): BP systolic 122–142; BP diastolic 66–76; PULSE 84–96; RESP 18–24; TEMP 36.8; O2SAT 93–97; BMI 21.4
--- NOTE | 2023-04-12 08:04 | DI.RAD.S_ITS ---
PROCEDURE: XR CHEST 1V INDICATIONS: Flu A, COPD and SOB TECHNIQUE: One view of the chest was acquired. COMPARISON: [facility], CR, XR CHEST 1V, 04/08/2023, 10:15. FINDINGS: Surgical changes and devices: There is a cardiac pacemaker with leads in expected position. Lungs and pleura: Infiltrate and consolidation in right upper lung zone consistent with pneumonia. Lungs are lucent consistent with emphysema. No pleural effusions or pneumothorax. Mediastinum: Mediastinal contours appear normal. Heart size is normal. Bones and chest wall: No suspicious bony lesions. Overlying soft tissues appear unremarkable. IMPRESSION: Right upper lung pneumonia. Dictated by: Brijesh Mayo M.D. on 04/12/2023 at 8:34 Approved by: Brijesh Mayo M.D. on 04/12/2023 at 8:35
--- NOTE | 2023-04-12 08:24 | ED_ITS ---
HPI - General Adult General Chief complaint: Shortness of Breath/Dyspnea Stated complaint: SOB/ INFLUENZA A Time Seen by Provider: 04/12/23 08:00 Source: patient Mode of arrival: Wheelchair Limitations: no limitations History of Present Illness HPI narrative: Patient is a 67-year-old female. Has multiple chronic medical problems. Has a longstanding history of lung pathology to include lung cancer and COPD and a 50 pack year smoking history. Is on oxygen at home occasionally as needed. Was seen here in the emergency department several days ago. Was diagnosed with influenza a. Was sent home with steroid taper. She is on the taper. She feels like her breathing has been worsening over the past couple days. She was also coughing. At home they took her oxygen saturations with a pulse ox and got a reading less than 70%. They stated that they were unsure whether or not this was correct. They moved to another finger and it was much better. She has been doing her nebulizers at home. She arrives in the emergency department today wheezing and short of breath. Related Data Home Medications Medication Instructions Recorded Confirmed potassium chloride 10 mEq ea PO 05/07/21 02/02/23 tablet,extended release(part/cryst) atorvastatin 40 mg tablet 40 mg PO BEDTIME 08/14/21 02/02/23 furosemide 40 mg tablet 40 mg PO DAILY 08/14/21 02/02/23 fluticasone furoate 200 1 inh inhalation DAILY 12/25/21 02/02/23 mcg-vilanterol 25 mcg/dose inhalation powder (Breo Ellipta) mirtazapine 30 mg tablet 30 mg PO BEDTIME 08/18/22 02/02/23 sacubitril 49 mg-valsartan 51 mg 1 tab PO BID 08/18/22 02/02/23 tablet (Entresto) Previous Rx's Medication Instructions Recorded albuterol sulfate 90 mcg/actuation 2 puff inhalation Q4-6H PRN 02/13/21 aerosol inhaler (ProAir HFA) shortness of breath or wheezing #8.5 grams tramadol 50 mg tablet 50 mg PO BID PRN pain #60 tabs 06/18/22 celecoxib 200 mg capsule See Rx Instructions .Route 08/18/22 .COMPLEX #90 caps cyclobenzaprine 10 mg tablet 10 mg PO BID PRN muscle spasm #60 08/18/22 tabs fluoxetine 40 mg capsule 40 mg PO DAILY #90 caps 02/02/23 sodium,potassium,mag sulfates 17.5 See Rx Instructions PO .COMPLEX 03/04/23 gram-3.13 gram-1.6 gram oral soln #354 mL (Suprep Bowel Prep Kit) prednisone 10 mg tablets in a dose See Rx Instructions PO .COMPLEX 04/08/23 pack #21 ea azithromycin 500 mg tablet 500 mg PO DAILY 3 days #3 tabs 04/10/23 benzonatate 200 mg capsule 200 mg PO TID PRN cough #30 caps 04/10/23 Allergies Allergy/AdvReac Type Severity Reaction Status Date / Time No Known Drug Allergies Allergy Verified 04/08/23 09:50 Review of Systems Review of Systems ROS Unobtainable: All systems reviewed & are unremarkable except as noted in HPI and below Patient History Medical History Lumbar disc disease Chronic back pain Chicken pox Cardiomyopathy Depression (~2019) Cholelithiasis Sacral back pain Lumbar stenosis Facet arthropathy, lumbar Scoliosis due to degenerative disease of spine in adult patient Scoliosis HTN (hypertension) COPD (chronic obstructive pulmonary disease) (~2017) Pulmonary nodule Surgical History Anesthesia History of cardiac defibrillator placement (~2022) History of cholecystectomy (~2020) History of lung surgery (~2018) Hx of foot surgery History of elbow surgery History of Family History Father Hypertension Diabetes mellitus History of heart disease Mother Hypertension Stroke Sister History of heart disease Sister History of heart disease Lung disease Other No pertinent family history Social History marital status: household members: spouse occupational status: employed Smoking Status: Former smoker alcohol intake: never substance use type: does not use Smoking Status: Former smoker alcohol intake frequency: holidays/special occasions only Substance Use Type: does not use Exam Initial Vital Signs Initial Vital Signs: Vital Signs Pulse Rate 95 H 04/12/23 08:08 Pulse Oximetry 97 04/12/23 08:08 HENMT Head: normal to inspection and normocephalic Resp Effort & Inspection: cough, labored and tachypneic Auscultation: rhonchi and wheezes Cardio Rate: regular rate Rhythm: regular rhythm Skin General: no rashes or lesions noted Neuro General: patient alert, patient awake and moves all extremities Extrem General: capillary refill normal Course Orders Ordered: ED Orders 04/12/23 08:04 XR chest 1V Stat Discontinued Medications Albuterol/Ipratropium (Albuterol/Ipratropium 3 Ml Ampul) 3 ml INH NOW ONE Stop: 04/12/23 08:25 Last Admin: 04/12/23 08:29 Dose: 3 ml Documented By: NL Ipratropium [place] (Ipratropium 0.5 Mg/2.5 Ml Neb) 0.5 mg INH NOW ONE Stop: 04/12/23 09:06 Last Admin: 04/12/23 09:18 Dose: 0.5 mg Documented By: SAT Vital Signs Vital signs: Vital Signs - 8 hr 04/12/23 08:08 04/12/23 08:09 04/12/23 08:09 Temperature Pulse Rate 95 H 92 H Respiratory Rate Blood Pressure 142/66 H Pulse Oximetry 97 97 Oxygen Delivery Method Oxygen Flow Rate 04/12/23 08:15 04/12/23 08:30 04/12/23 08:30 Temperature 98.2 F Pulse Rate 96 H 86 Respiratory Rate 20 Blood Pressure 142/66 H 132/66 Pulse Oximetry 97 93 Oxygen Delivery Method Nasal Cannula Oxygen Flow Rate 2 04/12/23 09:00 04/12/23 09:00 04/12/23 09:19 Temperature Pulse Rate 86 84 Respiratory Rate 18 Blood Pressure 122/71 Pulse Oximetry 95 95 Oxygen Delivery Method Room Air Nasal Cannula Oxygen Flow Rate 0.5 04/12/23 09:30 04/12/23 09:30 Temperature Pulse Rate 85 Respiratory Rate Blood Pressure 138/76 Pulse Oximetry 95 Oxygen Delivery Method Oxygen Flow Rate Medical Decision Making Imaging Data Chest x-ray: Radiologist's Impression: PROCEDURE: XR CHEST 1V INDICATIONS: Flu A, COPD and SOB TECHNIQUE: One view of the chest was acquired. COMPARISON: [facility], , XR CHEST 1V, 04/08/2023, 10:15. FINDINGS: Surgical changes and devices: There is a cardiac pacemaker with leads in expected position. Lungs and pleura: Infiltrate and consolidation in right upper lung zone consistent with pneumonia. Lungs are lucent consistent with emphysema. No pleural effusions or pneumothorax. Mediastinum: Mediastinal contours appear normal. Heart size is normal. Bones and chest wall: No suspicious bony lesions. Overlying soft tissues appear unremarkable. IMPRESSION: Right upper lung pneumonia. [facility] Narrative Medical decision making narrative: Patient is not hypoxic. Her oxygen saturations greater than 94% on 0.5-1 L of oxygen by nasal cannula. She received nebulizer treatments here. She is still wheezing but states she is feeling better. She has on a steroid taper. Her primary doctor put her on antibiotics and her last doses today. Chest x-ray shows pneumonia however this is in the setting of a known influenza a and also known history of COPD and lung cancer and lobectomy is and also in the setting of being on antibiotics that we treat pneumonia. No changes in her medications. No indication for admission to the hospital. We did discuss taking her medications at home and when to return. She expressed understanding and agreement. Discharge Plan Departure Patient Disposition: Home Clinical Impression: Influenza A, COPD (chronic obstructive pulmonary disease), Shortness of breath Activity Restrictions/Additional Instructions: I recommend that you continue to take all of your medications as directed to include the steroids and your last dose of antibiotics. Continue to use your albuterol nebulizers at home like we discussed and also use the oxygen at home as well. Return to the emergency department for worsening symptoms like we discussed Prescriptions: No Action fluoxetine 40 mg capsule 40 mg PO DAILY Qty: 90 3RF tramadol 50 mg tablet 50 mg PO BID PRN (Reason: pain) Qty: 60 1RF sodium,potassium,mag sulfates [Suprep Bowel Prep Kit] 17.5-3.13-1.6 gram recon soln See Rx Instructions PO .COMPLEX Qty: 354 0RF Rx Instructions: TAKE DIRECTED BY PHYSICIAN. azithromycin 500 mg tablet 500 mg PO DAILY 3 Days Qty: 3 0RF benzonatate 200 mg capsule 200 mg PO TID PRN (Reason: cough) Qty: 30 0RF albuterol sulfate [ProAir HFA] 90 mcg/actuation HFA aerosol inhaler 2 puff inhalation Q4-6H PRN (Reason: shortness of breath or wheezing) Qty: 8.5 0RF prednisone 10 mg tablets,dose pack See Rx Instructions .ROUTE .COMPLEX Qty: 21 0RF Rx Instructions: Take 6 tablets p.o. x1, then 5 tablets p.o. x1, then 4 tablets p.o. x1, then 3 tablets p.o. x1, 2 tablets p.o. x1, 1 tablet p.o. x1 potassium chloride 10 mEq tablet,ER particles/crystals PO Patient Comments: TAKE 1 TABLET BY MOUTH DAILY WITH FOOD fluticasone furoate-vilanterol [Breo Ellipta] 200-25 mcg/dose blister with device 1 inh inhalation DAILY atorvastatin 40 mg tablet 40 mg PO BEDTIME furosemide 40 mg tablet 40 mg PO DAILY Entresto 49-51 mg tablet 1 tab PO BID Patient Comments: TAKE 1 TABLET BY MOUTH TWICE DAILY mirtazapine 30 mg tablet 30 mg PO BEDTIME Patient Comments: TAKE 1 TABLET BY MOUTH EVERY NIGHT celecoxib 200 mg capsule See Rx Instructions .ROUTE .COMPLEX Qty: 90 3RF Dose Instruction: TAKE 1 CAPSULE BY MOUTH DAILY Rx Instructions: TAKE 1 CAPSULE BY MOUTH DAILY cyclobenzaprine 10 mg tablet 10 mg PO BID PRN (Reason: muscle spasm) Qty: 60 2RF Referrals: Tegan Desir MD [Primary Care Provider] - Stand Alone Forms: Patient Portal/API
--- NOTE | 2023-04-12 08:26 | PC.NURSE ---
RT @ bedside for eval and treat
[2023-04-12] MEDS: ALBUTEROL/IPRATROPIUM 3 ML AMPUL INH (08:29)
[2023-04-12] MEDS: IPRATROPIUM 0.5 MG/2.5 ML NEB INH (09:18)
--- NOTE | 2023-04-12 11:02 | RT ---
pt vilma neb tx well, neb given with air. Pt on room air sao2@94%. Mild sob noted and has her portable o2 tank at bedside.
== END 2023-04-12 10:42 | disposition home or self-care (01) ==
PROVIDERS: Emergency Provider Emergency Medicine; PCP Student in an Organized Health Care Education/Training Program
DX: J10.1 Influenza due to other identified influenza virus with other respiratory manifestations (principal); J44.9 Chronic obstructive pulmonary disease, unspecified; R06.02 Shortness of breath
CPT/HCPCS: 71045; 94640; 99283; 99284

== ENCOUNTER → 2023-06-17 13:48 | Outpatient (CLI) | payer OTHER, SELFPAY ==
--- NOTE | 2023-06-17 13:54 | DI.RAD.S_ITS ---
PROCEDURE: XR CHEST 2V INDICATIONS: DYSPNEA TECHNIQUE: 2 views of the chest were acquired. COMPARISON: [facility], CR, XR CHEST 1V, 04/12/2023, 8:12. FINDINGS: Surgical changes and devices: Dual lead left-sided transvenous pacemaker. Cholecystectomy clips. Lungs and pleura: Hyperlucent lungs. Decreased right mid lung opacity with residual linear density in the right upper perihilar region and stranding in the right infrahilar region. No pleural effusion or pneumothorax. Mediastinum: Mediastinal contours are normal. Heart size is normal. Bones and chest wall: No suspicious bony abnormalities. Soft tissues appear unremarkable. IMPRESSION: Improvement in right upper lobe pneumonia with residual linear scar formation. Hyperlucent lungs suggesting COPD. Dictated by: Chani Enciso M.D. on 06/17/2023 at 17:53 Approved by: Chani Enciso M.D. on 06/17/2023 at 17:55
== END ==
PROVIDERS: PCP Student in an Organized Health Care Education/Training Program; Referring Provider Internal Medicine Pulmonary Disease; Visit Provider Internal Medicine Pulmonary Disease
DX: J18.9 Pneumonia, unspecified organism (principal); R06.09 Other forms of dyspnea; Z95.0 Presence of cardiac pacemaker
CPT/HCPCS: 71046

== ENCOUNTER 2023-12-24 07:19 | Outpatient (CLI) | payer OTHER, SELFPAY ==
[2023-12-24] VITALS (13 sets, daily range): BP systolic 107–158; BP diastolic 58–86; PULSE 75–84; RESP 16–21; TEMP 36.9; O2SAT 94–100
--- NOTE | 2023-12-24 08:00 | DI.RAD.S_ITS ---
PROCEDURE: PAIN L/S TRANSFORAMINAL INJECT INDICATIONS: SPONDYLOSIS COMPARISON: [facility], , PAIN L/S TRANSFORAMINAL INJECT, 05/08/2022, 11:30. FINDINGS: Fluoroscopic spot filming was performed to verify placement of spinal needles at the bilateral L3-4 and L4-5 level(s), as labeled on the films. Appropriate location(s) of the needle tip(s) was confirmed by injection of iodinated contrast. IMPRESSION: Intraoperative fluoroscopy for transforaminal ARLENE. Dictated by: Chani Enciso M.D. on 12/24/2023 at 13:28 Approved by: Chani Enciso M.D. on 12/24/2023 at 13:28
[2023-12-24] MEDS: MIDAZOLAM 2 MG/2 ML VIAL IV (08:22)
[2023-12-24] MEDS: iopamidoL 15 ML VIAL 3 ML INJ (08:28)
[2023-12-24] MEDS: BUPIVACAINE 0.25% (PF) VIAL 2 ML INJ (08:29)
[2023-12-24] MEDS: DEXAMETHASONE 10 MG/ML VIAL 20 MG INJ (08:30)
[2023-12-24] MEDS: BETAMETHASONE 30 MG/5 ML MDV 12 MG INJ (08:34)
--- NOTE | 2023-12-24 08:48 | P.PCN_ITS ---
Date/Time/Diagnoses Date of procedure: 12/24/23 Time of procedure: 08:49 Pre-procedure diagnosis: 1. FORAMINAL STENOSIS WITH LE SYMPTOMS Post-procedure diagnosis: same Procedure Notes Procedure: 1. FLUOROSCOPICALLY GUIDED CONTRAST CONTROLLED TRANSFORAMINAL EPIDURAL STEROID INJECTION - RIGHT L3/4 TFESI Indications: Martine is referred by Dr. Desir for treatment of Foraminal Stenosis with right LE Symptoms Physician: Tony Delaney Total Fluoroscopy time (seconds): 14 Total sedation minutes: 24 Complications: none Procedure in detail & Post-procedure care: FINDINGS Foraminal Nerve Root Compression secondary to disc disease and facet hypertrophy DESCRIPTION OF PROCEDURE Following review of allergy and review of potential side effects and complications, including, but not necessarily limited to, infection, allergic reaction, local tissue breakdown, stroke, temporary or permanent nerve injury, paralysis, and possible , the patient indicated that the patient understood and agreed to proceed. An informed consent document was signed by the patient, witnessed by a nurse, and placed in the patient's chart. Additionally, other treatment options including medications, modalities, and physical therapy were reviewed with the patient. After review of previous anaesthesic history and IV conscious sedation the patient was deemed safe to proceed with today?s procedure with IV conscious sedation as ASA class II designation. Safety time-out was performed to confirm patient ID, procedure to be performed and site of procedure. IV sedation was accomplished with a combination of 2mg of Versed was administered by the RN after DO order, titrated to patient comfort during the course of the procedure while the patient remained responsive to all verbal commands In the prone position following sterile prep and drape of the lumbar region, the right L3/4 posterior neuroforamen was identified fluoroscopically. The skin was anesthetized via a 25-gauge 1.5-inch needle with 1% lidocaine solution. At this point, a 25-gauge 3.5-inch spinal needle was atraumatically introduced and advanced under fluoroscopic guidance through the posterior right L3/4 neuroforamen to approximately the anterior aspect of the canal. Depth was confirmed on lateral view. Following negative aspiration, injection of approximately 1.5 cc of Isovue 200 under live fluoroscopy in the AP view confirmed excellent flow along the nerve root, into the epidural space without vascular or intrathecal uptake observed Radiological data, including multiple fluoroscopic views of the lumbosacral spine, reveal a spinal needle at the right L3/4 posterior neuroforamen. Subsequent views show flow of contrast material flowing superiorly and inferiorly along the nerve root confirming epidural flow. Subsequently, a test dose of 1.5 cc of 1% lidocaine solution was administered and patient was observed for two minutes for signs or symptoms of complications, including abdominal pain, shortness of breath, bilateral upper or lower extremity weakness, nausea and vomiting, prior to steroid injection. At this point, a total of 2cc or 10mg of dexamethasone and 6mg of betamethasone was injected without incident. The patient tolerated the procedure well without signs or symptoms of complications prior to transfer to the recovery area continued monitoring without incident. The patient was then transferred to the recovery area where they were observed for an appropriate time after the injection. The patient reported a VAS score of 7 prior to the procedure and a post-procedure VAS of 0. POST OP INSTRUCTIONS The patient was provided a Pain Log to continue to record their response to the target-specific procedure prior to follow-up visit with their referring physician. Additionally, specific post-injection care instructions and a contact number to our office were provided if concerns arise regarding possible complications associated with the procedure are suspected.
--- NOTE | 2023-12-24 08:50 | P.PCN_ITS ---
Date/Time/Diagnoses Date of procedure: 12/24/23 Time of procedure: 08:50 Pre-procedure diagnosis: 1. FORAMINAL STENOSIS WITH LE SYMPTOMS Post-procedure diagnosis: same Procedure Notes Procedure: 1. FLUOROSCOPICALLY GUIDED CONTRAST CONTROLLED TRANSFORAMINAL EPIDURAL STEROID INJECTION - RIGHT L4/5 TFESI Indications: Martine is referred by Dr. Desir for treatment of Foraminal Stenosis with Right LE Symptoms Physician: Tony Delaney Total Fluoroscopy time (seconds): 14 Total sedation minutes: 24 Complications: none Procedure in detail & Post-procedure care: FINDINGS Foraminal Nerve Root Compression secondary to disc disease and facet hypertrophy DESCRIPTION OF PROCEDURE Following review of allergy and review of potential side effects and complications, including, but not necessarily limited to, infection, allergic reaction, local tissue breakdown, stroke, temporary or permanent nerve injury, paralysis, and possible , the patient indicated that the patient understood and agreed to proceed. An informed consent document was signed by the patient, witnessed by a nurse, and placed in the patient's chart. Additionally, other treatment options including medications, modalities, and physical therapy were reviewed with the patient. After review of previous anaesthesic history and IV conscious sedation the patient was deemed safe to proceed with today?s procedure with IV conscious sedation as ASA class II designation. Safety time-out was performed to confirm patient ID, procedure to be performed and site of procedure. IV sedation was accomplished with a combination of 2mg of Versed was administered by the RN after DO order, titrated to patient comfort during the course of the procedure while the patient remained responsive to all verbal commands In the prone position following sterile prep and drape of the lumbar region, the right L4/5 posterior neuroforamen was identified fluoroscopically. The skin was anesthetized via a 25-gauge 1.5-inch needle with 1% lidocaine solution. At this point, a 25-gauge 3.5-inch spinal needle was atraumatically introduced and advanced under fluoroscopic guidance through the posterior right L4/5 neuroforamen to approximately the anterior aspect of the canal. Depth was confirmed on lateral view. Following negative aspiration, injection of approximately 1.5cc of Isovue 200 under live fluoroscopy in the AP view confirmed excellent flow along the nerve root, into the epidural space without vascular or intrathecal uptake observed Radiological data, including multiple fluoroscopic views of the lumbosacral spine, reveal a spinal needle at the right L4/5 posterior neuroforamen. Subsequent views show flow of contrast material flowing superiorly and inferiorly along the nerve root confirming epidural flow. Subsequently, a test dose of 1.5 cc of 1% lidocaine solution was administered and patient was observed for two minutes for signs or symptoms of complications, including abdominal pain, shortness of breath, bilateral upper or lower extremity weakness, nausea and vomiting, prior to steroid injection. At this point, a total of 2cc or 10mg of dexamethasone and 6mg of betamethasone was injected without incident. The procedure tolerated the procedure well without signs or symptoms of complications prior to transfer to the recovery area continued monitoring without incident. The patient was then transferred to the recovery area where they were observed for an appropriate time after the injection. The patient reported a VAS score of 7 prior to the procedure and a post- procedure VAS of 0. POST OP INSTRUCTIONS The patient was provided a Pain Log to continue to record their response to the target-specific procedure prior to follow-up visit with their referring physician. Additionally, specific post-injection care instructions and a contact number to our office were provided if concerns arise regarding possible complications associated with the procedure are suspected.
== END 2023-12-24 10:35 | disposition home or self-care (01) ==
LOC: RAD 07:19
PROVIDERS: PCP Student in an Organized Health Care Education/Training Program; Referring Provider Physical Medicine & Rehabilitation; Visit Provider Physical Medicine & Rehabilitation
DX: M48.061 Spinal stenosis, lumbar region without neurogenic claudication (principal); M51.16 Intervertebral disc disorders with radiculopathy, lumbar region; M47.26 Other spondylosis with radiculopathy, lumbar region
CPT/HCPCS: 64483; 64484; 99152; 99153; J0702; J1100; J2250; J3490

== ENCOUNTER → 2024-05-18 07:45 | Outpatient (CLI) | payer MEDICARE, SELFPAY ==
--- NOTE | 2024-05-18 07:51 | DI.CT.S_ITS ---
PROCEDURE: CT PEL WO CON INDICATIONS: SI JOINT DYSFUNCTION TECHNIQUE: Noncontrast 3 mm axial sections acquired through the bony pelvis, with coronal and sagittal reformatting. COMPARISON: None. FINDINGS: Image quality: Excellent. Bones: Diffuse osseous demineralization. No acute fracture or dislocation. Right L5-S1 pseudoarthrosis (). Joints: Minimal bilateral hip osteoarthritis. Mild bilateral sacroiliac joint osteoarthritis without ankylosis or osseous erosions. The pubic symphysis is preserved. Partially identified moderate dextrocurvature of the lower lumbar spine. Muscles: Moderate diffuse paraspinal muscle atrophy. Vessels: Moderate aortoiliac atherosclerosis without aneurysmal dilatation. Lymph nodes: No bilateral inguinal or lower retroperitoneal lymphadenopathy. Other soft tissues: Scattered colonic diverticulosis. Intrapelvic contents otherwise within normal limits. IMPRESSION: 1. Mild bilateral sacroiliac joint osteoarthritis. 2. 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 Dictated by: Kendall Morin M.D. on 05/18/2024 at 13:26 Approved by: Kendall Morin M.D. on 05/18/2024 at 13:31
== END ==
PROVIDERS: PCP Student in an Organized Health Care Education/Training Program; Referring Provider Neurological Surgery; Visit Provider Neurological Surgery
DX: M53.88 Other specified dorsopathies, sacral and sacrococcygeal region (principal); M19.09 Primary osteoarthritis, other specified site
CPT/HCPCS: 72192